=== PATIENT | male | born 1955 | race Caucasian/White ===

== ENCOUNTER 2017-06-05 17:23 | Inpatient (IN) | payer OTHER ==
[2017-06-05] VITALS (7 sets, daily range): BP systolic 138–159; BP diastolic 62–95; PULSE 105–160; RESP 18–38; TEMP 98.1–98.2; O2SAT 91–95
[~2017-06-05] VITALS: Ht 170.2 cm; Wt 86.5 kg
[2017-06-05] MEDS ORDERED: SODIUM CHLOR 0.9% 1000 ML INJ 1,000 ML IV ONE ×2 (20:11→21:30)
[2017-06-05] MEDS ORDERED: ONDANSETRON HCL 4 MG/2 ML VIAL IV PUSH ONE (20:15)
[2017-06-05] MEDS ORDERED: MORPHINE SULFATE 4 MG/ML INJ IV PUSH ONE (20:15)
--- NOTE | 2017-06-05 20:27 | PD ---
HPI Chief Complaint: GI Complaint Time Seen by Provider: 19:49 Travel History International Travel<30 days: No Contact w/Intl Traveler<30days: No Traveled to known affect area: No History of Present Illness HPI Patient is a 62-year-old male presenting to emergency department for evaluation of abdominal pain. Patient states his symptoms started 2 weeks ago, he reports feeling bloated and gassy. He reports hot flashes but denies any documented temperatures. His last bowel movement was 3 days ago, this is a normal pattern for him per his report. He denies any dysuria, nausea, vomiting. Patient reports that he cannot lay flat. He also has ulcerations to his left lower leg which he states has been ongoing for 2 to 3 weeks as well. Patient's past medical history significant for hypertension, hyperlipidemia, AMI. He denies any coronary stents or CABG. Patient is a daily tobacco user, he denies any alcohol or illicit drug use. Symptom onset was gradual, symptoms are severe in nature. H&P is limited due to patient's clinical condition. PFSH Past Medical History High Cholesterol: Yes Diminished Hearing: Yes Hypertension: Yes Myocardial Infarction: Yes Tetanus Vaccination: Unknown Influenza Vaccination: No Past Surgical History Surgical History: No Previous Surgery Social History Alcohol Use: No Tobacco Use: Yes (02/22 ppd) Substance Use: No Allergies-Medications (Allergen,Severity, Reaction): Coded Allergies: No Known Allergies (Unverified , 06/05/17) Review of Systems ROS Limitations: Clinical Condition Except as stated in HPI: all other systems reviewed are Neg General / Constitutional: Positive: Fever Eyes: No: Blurred Vision HENT: No: Headaches Cardiovascular: Positive: Dyspnea on exertion, Edema, No: Chest Pain or Discomfort Respiratory: Positive: Shortness of Breath Gastrointestinal: Positive: Abdominal Pain, Loss of Appetite, No: Nausea, Vomiting Genitourinary: No: Dysuria Musculoskeletal: No: Myalgias Neurologic: Positive: Weakness, No: Dizziness, Syncope, Focal Abnormalities Physical Exam Narrative GENERAL: Overweight, well-developed, alert, acutely ill-appearing elderly gentleman. Appears uncomfortable, no acute distress. SKIN: Warm and dry. Ulcerations noted to lateral aspect of left lower leg, clear drainage noted. Skin is mottled on lower abdomen and flanks. HEAD: Atraumatic. Normocephalic. EYES: Pupils equal and round. No scleral icterus. No injection or drainage. ENT: No nasal bleeding or discharge. Mucous membranes pink and moist. NECK: Trachea midline. No JVD. CARDIOVASCULAR: Tachycardic, decreased capillary refill bilateral lower extremities. RESPIRATORY: No accessory muscle use. Clear to auscultation. Breath sounds equal bilaterally. GASTROINTESTINAL: Abdomen distended, firm, hypoactive bowel sounds. Tender to palpation diffusely. Positive guarding. Hepatic and splenic margins not palpable. MUSCULOSKELETAL: Extremities without clubbing, cyanosis. No obvious deformities. 2+ pitting edema to bilateral lower extremities. NEUROLOGICAL: Awake and alert. No obvious cranial nerve deficits. Motor grossly within normal limits. Five out of 5 muscle strength in the arms and legs. Normal speech. PSYCHIATRIC: Appropriate mood and affect; insight and judgment normal. Data Data Last Documented VS Vital Signs Date Time Temp Pulse Resp B/P (MAP) Pulse Ox O2 Delivery O2 Flow Rate FiO2 06/05/17 22:45 160 36 138/69 (92) 95 Non-Rebreather 15.00 06/05/17 17:30 98.2 Orders Orders Sepsis Workup Initiated (06/05/17 ) Electrocardiogram (06/05/17 20:11) Complete Blood Count With Diff (06/05/17 20:11) Comprehensive Metabolic Panel (06/05/17 20:11) Prothrombin Time / Inr (Pt) (06/05/17 20:11) Act Partial Throm Time (Ptt) (06/05/17 20:11) Lactic Acid Sepsis Protocol (06/05/17 20:11) Magnesium (Mg) (06/05/17 20:11) Lipase (06/05/17 20:11) Ckmb (Isoenzyme) Profile (06/05/17 20:11) Troponin I (06/05/17 20:11) Urinalysis - C+S If Indicated (06/05/17 20:11) Chest, Single Ap (06/05/17 20:11) Blood Glucose (06/05/17 20:11) Ecg Monitoring (06/05/17 20:11) Iv Access Insert/Monitor (06/05/17 20:11) Oximetry (06/05/17 20:11) Oxygen Administration (06/05/17 20:11) Ondansetron Inj (Zofran Inj) (06/05/17 20:15) Ct Abd/Pel W Iv Contrast(Rout) (06/05/17 20:11) Sodium Chlor 0.9% 1000 Ml Inj (Ns 1000 M (06/05/17 20:11) B-Type Natriuretic Peptide (06/05/17 20:11) Morphine Inj (Morphine Inj) (06/05/17 20:15) Ed Poc Ultrasound (06/05/17 ) Ct Thorax/ Chest W Iv Contrast (06/05/17 21:03) Type And Screen (06/05/17 21:09) Sodium Chlor 0.9% 250 Ml Inj (Ns 250 Ml (06/05/17 21:15) Sodium Chlor 0.9% 1000 Ml Inj (Ns 1000 M (06/05/17 21:30) Sodium Polysty Sulfate Liq (Kayexalate L (06/05/17 21:30) Blood Culture (06/05/17 21:33) Iodixanol 320 Inj (Rad Ct) (Visipaque 32 (06/05/17 22:18) Hydromorphone Pf Inj (Dilaudid Pf Inj) (06/05/17 23:15) Piperacil-Tazo 4.5 Gm Premix (Zosyn 4.5 (06/05/17 23:07) Labs Laboratory Tests Test 06/05/17 20:30 White Blood Count 20.1 TH/MM3 Red Blood Count 5.22 MIL/MM3 Hemoglobin 16.9 GM/DL Hematocrit 49.2 % Mean Corpuscular Volume 94.2 FL Mean Corpuscular Hemoglobin 32.3 PG Mean Corpuscular Hemoglobin Concent 34.3 % Red Cell Distribution Width 14.6 % Platelet Count 381 TH/MM3 Mean Platelet Volume 9.8 FL Neutrophils (%) (Auto) 93.9 % Lymphocytes (%) (Auto) 2.5 % Monocytes (%) (Auto) 3.1 % Eosinophils (%) (Auto) 0.0 % Basophils (%) (Auto) 0.5 % Neutrophils # (Auto) 18.9 TH/MM3 Lymphocytes # (Auto) 0.5 TH/MM3 Monocytes # (Auto) 0.6 TH/MM3 Eosinophils # (Auto) 0.0 TH/MM3 Basophils # (Auto) 0.1 TH/MM3 CBC Comment AUTO DIFF Differential Total Cells Counted 100 Neutrophils % (Manual) 79 % Band Neutrophils % 12 % Lymphocytes % 3 % Monocytes % 3 % Neutrophils # (Manual) 18.9 TH/MM3 Metamyelocytes 2 % Myelocytes 1 % Differential Comment FINAL DIFF MANUAL Platelet Estimate NORMAL Platelet Morphology Comment ENLARGED Prothrombin Time 12.8 SEC Prothromb Time International Ratio 1.3 RATIO Activated Partial Thromboplast Time 41.6 SEC Urine Color LIGHT-BROWN Urine Turbidity CLOUDY Urine pH 5.0 Urine Specific [place] 1.023 Urine Protein 30 mg/dL Urine Glucose (UA) NEG mg/dL Urine Ketones NEG mg/dL Urine Occult Blood TRACE Urine Nitrite NEG Urine Bilirubin NEG Urine Urobilinogen 4.0 MG/DL Urine Leukocyte Esterase TRACE Urine RBC 12 /hpf Urine WBC 5 /hpf Urine Amorphous Sediment RARE Urine Bacteria OCC /hpf Urine Mucus FEW /lpf Microscopic Urinalysis Comment CULT NOT INDICATED Blood Urea Nitrogen 79 MG/DL Creatinine 1.92 MG/DL Random Glucose 114 MG/DL Total Protein 8.8 GM/DL Albumin 1.5 GM/DL Calcium Level 9.1 MG/DL Magnesium Level 3.8 MG/DL Alkaline Phosphatase 340 U/L Aspartate Amino Transf (AST/SGOT) 39 U/L Alanine Aminotransferase (ALT/SGPT) 53 U/L Total Bilirubin 1.7 MG/DL Sodium Level 126 MEQ/L Potassium Level 7.3 MEQ/L Chloride Level 99 MEQ/L Carbon Dioxide Level 16.9 MEQ/L Anion Gap 10 MEQ/L Estimat Glomerular Filtration Rate 36 ML/MIN Lactic Acid Level 1.5 mmol/L Total Creatine Kinase 74 U/L Troponin I LESS THAN 0.02 NG/ML B-Type Natriuretic Peptide 82 PG/ML Lipase 144 U/L MDM Medical Decision Making Medical Screen Exam Complete: Yes Emergency Medical Condition: Yes Interpretation(s) Vital Signs Date Time Temp Pulse Resp B/P (MAP) Pulse Ox O2 Delivery O2 Flow Rate FiO2 06/05/17 20:09 110 30 158/79 (105) 91 Nasal Cannula 2.00 06/05/17 20:09 30 06/05/17 17:30 98.2 105 18 159/95 (116) 95 Differential Diagnosis CHF versus UTI versus obstruction versus GI bleed versus perforated bowel versus AAA versus other Narrative Course Patient is a 62-year-old male that presented to emergency department for evaluation of abdominal pain. Pain is worse when he lays down flat. Patient is a poor historian secondary to pain. On arrival patient is tachycardic, tachypneic and his oxygen saturation was 93% on room air. Labs and imaging ordered and pending. Sepsis workup initiated, additionally we will check cardiac enzymes, BNP. IV fluids and pain medication ordered. CBC with a white count of 20.1 with left shift Chemistry with a sodium of 126, potassium 7.3, BUN and creatinine 79/1.92, magnesium 3.8. 60 g of Kayexalate p.o. 1 dose ordered Lactic acid is 1.5 BNP is 82 Cardiac enzymes are negative 1 set Urinalysis with trace occult blood, 12 red blood cells, not consistent with UTI. Chest x-ray shows cardiomegaly. Suspected minimal atelectasis at the bases. An addendum notes curvilinear lucency seen in the right lower chest/upper abdomen region. Free intraperitoneal air cannot be excluded. Patient was also seen and evaluated by my attending physician. CT the abdomen and pelvis shows free intraperitoneal air and fluid. The source is not identified. Basilar consolidation or atelectasis at the lung bases. Small right renal calcifications which may represent nonobstructing renal stones. Patient was brought back from CT, he had been on oxygen, his O2 sat was in the 80s. He was placed on a nonrebreather, sats are now at 95%. He was tachycardic , patient complained that his pain was not controlled. Dilaudid 0.5 mg 1 dose IV was ordered. Discussed findings of the CT scan of the abdomen and pelvis with Dr. Valle who stated he would come evaluate the patient. Dr. Magdaleno accepted admission to the intensive care unit. Sepsis Criteria SIRS Criteria (2 or more): Heart rate over 90, WBC > 16333, < 4000 or > 10% bands Diagnosis Primary Impression: Perforated bowel Additional Impressions: Hyperkalemia Acute renal failure Qualified Codes: N17.9 - Acute kidney failure, unspecified Hyponatremia Admitting Information Admitting Physician Requests: Admit Condition: Stable Kendra Gant KNOTTER Jun 05, 2017 20:27
--- NOTE | 2017-06-05 20:53 | RADRPT ---
EXAM DATE/TIME: 06/05/2017 20:30 This report includes an Addendum and supersedes previous reports for this exam. [facility] COMPARISON: No previous studies available for comparison. INDICATIONS : Short of Breath MEDICAL HISTORY : None. SURGICAL HISTORY : None. ENCOUNTER: Initial ACUITY: 1 day PAIN SCORE: 0/10 LOCATION: chest FINDINGS: The heart size is enlarged. There is minimal increased density the bases. End of the lungs are clear. No effusion is seen. CONCLUSION: 1. Cardiomegaly. 2. Suspected minimal atelectasis at the bases. Paul Bernal MD on June 05, 2017 at 20:49 Board Certified Radiologist. This report was verified electronically. ADDENDUM: I have been asked to review this case. There is some curvilinear lucency seen in the right lower ches t/upper abdomen region. Free intraperitoneal air cannot be excluded. The patient is scheduled for CT examination. Paul Bernal MD on June 05, 2017 at 21:20 Board Certified Radiologist. This report was verified electronically.
[2017-06-05 20:57] LABS: AUTOMATED NEUTROPHIL # 18.9 TH/MM3 (1.8-7.7); BASOPHIL # 0.1 TH/MM3 (0-0.2); BASOPHIL % 0.5 % (0.0-2.0); HEMATOCRIT 49.2 % (39.0-51.0); HEMOGLOBIN 16.9 GM/DL (13.0-17.0); LYMPH % 2.5 % (9.0-44.0); LYMPHOCYTE # 0.5 TH/MM3 (1.0-4.8); MEAN CELL VOLUME 94.2 FL (80.0-100.0); MEAN CORPUSCULAR HEMOGLOBIN 32.3 PG (27.0-34.0); MEAN CORPUSCULAR HGB CONC 34.3 % (32.0-36.0); MEAN PLATELET VOLUME 9.8 FL (7.0-11.0); MONO % 3.1 % (0.0-8.0); MONOCYTE # 0.6 TH/MM3 (0-0.9); NEUT % 93.9 % (16.0-70.0); PLATELET COUNT 381 TH/MM3 (150-450); RED BLOOD COUNT 5.22 MIL/MM3 (4.50-5.90); RED CELL DISTRIBUTION WIDTH 14.6 % (11.6-17.2); WHITE BLOOD COUNT 20.1 TH/MM3 (4.0-11.0)
[2017-06-05 21:07] LABS: INTERNATIONAL NORMALIZED RATIO 1.3 RATIO; PROTHROMBIN TIME - PATIENT 12.8 SEC (9.8-11.6)
[2017-06-05 21:08] LABS: ALT (GPT) 53 U/L (12-78); AST (GOT) 39 U/L (15-37); BICARBONATE 16.9 MEQ/L (21.0-32.0); BLOOD UREA NITROGEN 79 MG/DL (7-18); CALCIUM 9.1 MG/DL (8.5-10.1); CHLORIDE 99 MEQ/L (98-107); CREATININE 1.92 MG/DL (0.60-1.30); GLOMERULAR FILTRATION RATE 36 ML/MIN (>89); GLUCOSE,RANDOM 114 MG/DL (74-106); MAGNESIUM 3.8 MG/DL (1.5-2.5); SODIUM (NA) 126 MEQ/L (136-145)
[2017-06-05 21:12] LABS: AMORPHOUS SEDIMENT, URINE RARE; BACTERIA, URINE OCC /hpf; BLOOD, URINE TRACE (NEG); GLUCOSE,URINE NEG (NEG); KETONE, URINE NEG (NEG); MUCUS URINE FEW /lpf (OCC); NITRITE,URINE NEG (NEG); URINE COLOR LIGHT-BROWN (YELLW/STRAW); URINE LEUKOCYTE ESTERASE TRACE (NEG)
[2017-06-05] MEDS ORDERED: SODIUM CHLOR 0.9% 250 ML INJ 250 ML IV ONE (21:15)
[2017-06-05 21:16] LABS: BILIRUBIN, URINE NEG (NEG)
[2017-06-05 21:18] LABS: ALBUMIN 1.5 GM/DL (3.4-5.0); ALKALINE PHOSPHATASE 340 U/L (45-117); TOTAL BILIRUBIN ADULT 1.7 MG/DL (0.2-1.0); TOTAL PROTEIN 8.8 GM/DL (6.4-8.2); TROPONIN I LESS THAN 0.02 NG/ML (0.02-0.05)
[2017-06-05] MEDS ORDERED: SODIUM POLYSTYRENE SULFONATE SUSP 15 GM/60 ML CUP PO ONE (21:30)
--- NOTE | 2017-06-05 22:01 | PD ---
Physical Exam Narrative General: The patient is a well-developed well-nourished male, uncomfortable appearing on arrival, sitting up on the side of the bed is reporting that he cannot lie back because of pain. Head and Neck exam: Head is normocephalic atraumatic. Eyes: EOMI, pupils are equal round and reactive to light. Nose: Midline septum with pink mucous membranes Mouth: Dentition unremarkable. Moist mucus membranes. Posterior oropharynx is not erythematous. No tonsillar hypertrophy. Uvula midline. Airway patent. Neck: No palpable lymphadenopathy. No nuchal rigidity. No thyromegaly. Cardiovascular: Sinus tachycardia in the 1 teens without murmurs, gallops, or rubs. No pulse deficit to the extremities on simultaneous auscultation and palpation of his radial artery. Lungs: Decreased breath sounds in bilateral lung bases. Crackles were audible in the lung bases on the right. No rhonchi audible. No accessory muscle use noted. No paroxysmal abdominal breathing. Abdomen: The patient's abdomen is distended and exquisitely tender to palpation in all quadrants worse in bilateral upper quadrants of the abdomen midepigastric area. Decreased bowel sounds are audible. The patient has voluntary guarding. No rigidity. Extremities: No clubbing or cyanosis. The patient has prolonged cap refill in bilateral lower extremities at 4 seconds. The patient has mottled appearing skin of his abdomen, flank, lower extremities. The patient has areas of skin ulceration along the left lower extremity with scabbing overlying these areas of ulceration. Back: No spinous process tenderness to palpation. No costovertebral angle tenderness to palpation. Neurologic Exam: Grossly nonfocal. Skin Exam: No rash noted. Intact skin that is warm and dry. Data Data Last Documented VS Vital Signs Date Time Temp Pulse Resp B/P (MAP) Pulse Ox O2 Delivery O2 Flow Rate FiO2 06/05/17 22:45 160 36 138/69 (92) 95 Non-Rebreather 15.00 06/05/17 17:30 98.2 Orders Orders Sepsis Workup Initiated (06/05/17 ) Electrocardiogram (06/05/17 20:11) Complete Blood Count With Diff (06/05/17 20:11) Comprehensive Metabolic Panel (06/05/17 20:11) Prothrombin Time / Inr (Pt) (06/05/17 20:11) Act Partial Throm Time (Ptt) (06/05/17 20:11) Lactic Acid Sepsis Protocol (06/05/17 20:11) Magnesium (Mg) (06/05/17 20:11) Lipase (06/05/17 20:11) Ckmb (Isoenzyme) Profile (06/05/17 20:11) Troponin I (06/05/17 20:11) Urinalysis - C+S If Indicated (06/05/17 20:11) Chest, Single Ap (06/05/17 20:11) Blood Glucose (06/05/17 20:11) Ecg Monitoring (06/05/17 20:11) Iv Access Insert/Monitor (06/05/17 20:11) Oximetry (06/05/17 20:11) Oxygen Administration (06/05/17 20:11) Ondansetron Inj (Zofran Inj) (06/05/17 20:15) Ct Abd/Pel W Iv Contrast(Rout) (06/05/17 20:11) Sodium Chlor 0.9% 1000 Ml Inj (Ns 1000 M (06/05/17 20:11) B-Type Natriuretic Peptide (06/05/17 20:11) Morphine Inj (Morphine Inj) (06/05/17 20:15) Ed Poc Ultrasound (06/05/17 ) Ct Thorax/ Chest W Iv Contrast (06/05/17 21:03) Type And Screen (06/05/17 21:09) Sodium Chlor 0.9% 250 Ml Inj (Ns 250 Ml (06/05/17 21:15) Sodium Chlor 0.9% 1000 Ml Inj (Ns 1000 M (06/05/17 21:30) Sodium Polysty Sulfate Liq (Kayexalate L (06/05/17 21:30) Blood Culture (06/05/17 21:33) Iodixanol 320 Inj (Rad Ct) (Visipaque 32 (06/05/17 22:18) Hydromorphone Pf Inj (Dilaudid Pf Inj) (06/05/17 23:15) Piperacil-Tazo 4.5 Gm Premix (Zosyn 4.5 (06/05/17 23:07) Calcium Gluconate Inj (Calcium Gluconate (06/05/17 23:30) Esmolol Drip Inj Premix (Brevibloc Drip (06/05/17 23:30) Admit Order (Ed Use Only) (06/05/17 23:23) Arterial Blood Gas (Abg) (06/05/17 ) Dextrose 50% In Janay (Vial) Inj (D50w (Vi (06/05/17 23:30) Insulin Human Regular Inj (Novolin R Inj (06/05/17 23:30) Potassium, Serum (K) (06/06/17 00:01) Sodium Bicarbonate 8.4% Inj (Sodium Bica (06/05/17 23:30) Labs Laboratory Tests Test 06/05/17 20:30 White Blood Count 20.1 TH/MM3 Red Blood Count 5.22 MIL/MM3 Hemoglobin 16.9 GM/DL Hematocrit 49.2 % Mean Corpuscular Volume 94.2 FL Mean Corpuscular Hemoglobin 32.3 PG Mean Corpuscular Hemoglobin Concent 34.3 % Red Cell Distribution Width 14.6 % Platelet Count 381 TH/MM3 Mean Platelet Volume 9.8 FL Neutrophils (%) (Auto) 93.9 % Lymphocytes (%) (Auto) 2.5 % Monocytes (%) (Auto) 3.1 % Eosinophils (%) (Auto) 0.0 % Basophils (%) (Auto) 0.5 % Neutrophils # (Auto) 18.9 TH/MM3 Lymphocytes # (Auto) 0.5 TH/MM3 Monocytes # (Auto) 0.6 TH/MM3 Eosinophils # (Auto) 0.0 TH/MM3 Basophils # (Auto) 0.1 TH/MM3 CBC Comment AUTO DIFF Differential Total Cells Counted 100 Neutrophils % (Manual) 79 % Band Neutrophils % 12 % Lymphocytes % 3 % Monocytes % 3 % Neutrophils # (Manual) 18.9 TH/MM3 Metamyelocytes 2 % Myelocytes 1 % Differential Comment FINAL DIFF MANUAL Platelet Estimate NORMAL Platelet Morphology Comment ENLARGED Prothrombin Time 12.8 SEC Prothromb Time International Ratio 1.3 RATIO Activated Partial Thromboplast Time 41.6 SEC Urine Color LIGHT-BROWN Urine Turbidity CLOUDY Urine pH 5.0 Urine Specific [place] 1.023 Urine Protein 30 mg/dL Urine Glucose (UA) NEG mg/dL Urine Ketones NEG mg/dL Urine Occult Blood TRACE Urine Nitrite NEG Urine Bilirubin NEG Urine Urobilinogen 4.0 MG/DL Urine Leukocyte Esterase TRACE Urine RBC 12 /hpf Urine WBC 5 /hpf Urine Amorphous Sediment RARE Urine Bacteria OCC /hpf Urine Mucus FEW /lpf Microscopic Urinalysis Comment CULT NOT INDICATED Blood Urea Nitrogen 79 MG/DL Creatinine 1.92 MG/DL Random Glucose 114 MG/DL Total Protein 8.8 GM/DL Albumin 1.5 GM/DL Calcium Level 9.1 MG/DL Magnesium Level 3.8 MG/DL Alkaline Phosphatase 340 U/L Aspartate Amino Transf (AST/SGOT) 39 U/L Alanine Aminotransferase (ALT/SGPT) 53 U/L Total Bilirubin 1.7 MG/DL Sodium Level 126 MEQ/L Potassium Level 7.3 MEQ/L Chloride Level 99 MEQ/L Carbon Dioxide Level 16.9 MEQ/L Anion Gap 10 MEQ/L Estimat Glomerular Filtration Rate 36 ML/MIN Lactic Acid Level 1.5 mmol/L Total Creatine Kinase 74 U/L Troponin I LESS THAN 0.02 NG/ML B-Type Natriuretic Peptide 82 PG/ML Lipase 144 U/L [facility] Medical Record Reviewed: Yes Supervised Visit with MAHSA: Yes Interpretation(s) Last Impressions Chest CT 06/05/172102 Signed Impressions: Service Date/Time: Monday, June 05, 2017 21:58 - CONCLUSION: 1. Bilateral atelectasis. 2. 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 3. No aneurysm or dissection of the thoracic aorta. Paul Palencia MD Chest X-Ray 06/05/172010 Signed Impressions: Service Date/Time: Monday, June 05, 2017 20:30 - CONCLUSION: 1. Cardiomegaly. 2. Suspected minimal atelectasis at the bases. Paul Bernal MD ADDENDUM : I have been asked to review this case. There is some curvilinear lucency seen in the right lower chest/upper abdomen region. Free intraperitoneal air cannot be excluded. The patient is scheduled for CT examination. Paul Bernal MD Abdomen/Pelvis CT 06/05/172010 Signed Impressions: Service Date/Time: Monday, June 05, 2017 21:58 - CONCLUSION: 1. Free intraperitoneal air and fluid. The source is not fluid identified. 2. Bibasilar is a consolidation or atelectasis at the lung bases. 3. Small right renal calcifications which may represent nonobstructing renal stones. Paul Bernal MD Narrative Course I, Dr. Corona, have reviewed the advance practice practitioner's documentation and am in agreement, met with the patient face to face, made the diagnosis, and the medical decision making was done by me. The patient was initially evaluated by Kendra, the nurse practitioner. Please see their complete history and physical. *My assessment and Findings: The patient presents with reported history of right -sided chest pain, abdominal pain, and shortness of breath. He reports that the abdominal pain is been present for the last 2 weeks. He reports that it became much worse recently. He reports that he has been taking extra pain medication to control his pain. He reports that he has chronic back pain. The patient is noted to be drowsy on examination on initial arrival and unfortunately his history was limited based on that. During the course of the patient's emergency department visit, the patient's history, examination, and differential diagnosis were reviewed with the patient. The patient was placed on a booth cleaner with oximetry and frequent blood pressure monitoring. The patient had IV access obtained and blood work sent for analysis. The patient had an EKG done on arrival that shows a sinus tachycardia, QRS duration 109 ms, QTC [address]-T wave abnormalities were noted. A chest x-ray was done and appeared suspicious for free air under the diaphragm on the right side above the liver. I did call the radiologist on-call regarding this finding and spoke to Dr. Bernal. Given the patient's mottled appearance, and severe abdominal pain associated with chest pain I did discuss with him what further imaging he might recommend as aortic dissection was also in the differential in addition to perforated bowel. He recommended proceeding with CT scan of the chest, abdomen and pelvis with IV contrast. The patient was initially provided normal saline 1 L IV fluid bolus, morphine for pain, Zofran for nausea. The patient's laboratory studies were reviewed and remarkable for white count of 20.1, hemoglobin 16.9, platelets 381 with neutrophils 79, bands 12, CMP is remarkable for sodium of 126, potassium 7.3, CO2 16.9, BUN 79, creatinine 1.92, glucose 114, magnesium 3.8, total bilirubin 1.7, AST 39, alk phos 340, initial cardiac enzymes within normal limits, BNP 82, lipase 44, lactic acid 1.5, PT 12.8, PTT 41.6, urinalysis shows 4 urobilinogen, leukocyte esterase trace, RBCs 12 Radiology studies were reviewed and remarkable for chest x-ray that shows cardiomegaly, minimal atelectasis at the bases, curvilinear lucency under the right diaphragm suspicious for free air. CT scan of the chest reveals bilateral atelectasis, emphysema, coronary artery calcifications and evidence of old apical infarct, no aneurysm or dissection. CT scan of the abdomen and pelvis shows free intraperitoneal air and fluid source is not able to be identified for the free fluid. The patient came back from CT, the patient was not placed back on oxygen in his room and desaturated down to a pulse oximetry oxygenation of mid 80s. The patient was placed on supplemental oxygen again. The patient had tachycardia and increased pain. The patient was given hydromorphone 0.5 mg IV, EKG was ordered. EKG revealed what appeared to be evidence of A. fib with RVR with heart rate in the 160s. The patient was started on esmolol drip. The patient was given Zosyn IV. The patient's results were discussed with the patient, including the plan of care. I explained that further testing and/ or monitoring is indicated based on the patient's history, examination, and/ or laboratory findings. Therefore, I recommended admission for additional evaluation. The patient expressed understanding and was agreeable with this plan. The patient was admitted to the hospital in critical condition and sent to a bed under the care of the therapeutic sales specialist and general surgeon. Sepsis Criteria SIRS Criteria (2 or more): Heart rate over 90, WBC > 63664, < 4000 or > 10% bands Sepsis Criteria (SIRS+source): Infect source susp/known Diagnosis Primary Impression: Perforated bowel Additional Impression: Atrial fibrillation with RVR Admitting Information Admitting Physician Requests: Admit Scripts Unable to Obtain Active Prescriptions or Reported Meds Elyse Corona MD Jun 05, 2017 22:01
[2017-06-05 22:05] LABS: BANDS 12 % (0-6); LYMPHOCYTES 3 % (9-44); METAMYELOCYTES 2 % (0-1); MONOCYTES 3 % (0-8); MYELOCYTES 1 % (0-0); NEUTROPHIL # MANUAL DIFF 18.9 TH/MM3 (1.8-7.7); POLYS (SEG NEUTROPHILS) 79 % (16-70)
[2017-06-05] MEDS ORDERED: IODIXANOL 320 MG/ML 10 ML VIAL (for Rad CT) IVCONTRAST ONE (22:18)
--- NOTE | 2017-06-05 22:49 | RADRPT ---
EXAM DATE/TIME: 06/05/2017 21:58 [facility] COMPARISON: No previous studies available for comparison. INDICATIONS : Severe abdominal pain; free air vs. dissection. IV CONTRAST: 47 cc Visipaque (iodixanol) IV ORAL CONTRAST: No oral contrast ingested. RADIATION DOSE: 6.36 CTDIvol (mGy) MEDICAL HISTORY : Hypertension. Myocardial infarction. SURGICAL HISTORY : None. ENCOUNTER: Initial ACUITY: 1 day PAIN SCALE: 10/10 LOCATION: abdomen TECHNIQUE: Volumetric scanning of the abdomen and pelvis was performed. Using automated exposure control and ad justment of the mA and/or kV according to patient size, radiation dose was kept as low as reasonably achievable to obtain optimal diagnostic quality images. DICOM format image data is available electro nically for review and comparison. FINDINGS: Free intraperitoneal air is present. LOWER LUNGS: There is increased density seen at the lung bases bilaterally. LIVER: Homogeneous density without lesion. There is no dilation of the biliary tree. No calcified gallston es. SPLEEN: Normal size without lesion. PANCREAS: Within normal limits. KIDNEYS: There are 2 small 2 mm calcifications seen in the central aspect of the right kidney likely related t o nonobstructing stones. There is a 3.1 cm cyst at the lateral mid left kidney. Hydronephrosis is not seen. ADRENAL GLANDS: Within normal limits. VASCULAR: There is no aortic aneurysm. Aortic calcifications are seen. BOWEL/MESENTERY: Free intraperitoneal air seen. There is peritoneal fluid seen in the pelvis. The source of the free a ir is not clearly identified. Dilated bowel is not seen. ABDOMINAL WALL: Within normal limits. RETROPERITONEUM: There is no lymphadenopathy. BLADDER: No wall thickening or mass. REPRODUCTIVE: Within normal limits. INGUINAL: There is no lymphadenopathy or hernia. MUSCULOSKELETAL: Within normal limits for patient age. CONCLUSION: 1. Free intraperitoneal air and fluid. The source is not fluid identified. 2. Bibasilar is a consolidation or atelectasis at the lung bases. 3. Small right renal calcifications which may represent nonobstructing renal stones. Paul Bernal MD on June 05, 2017 at 22:42 Board Certified Radiologist. This report was verified electronically.
[2017-06-05] MEDS ORDERED: PIPERACIL-TAZO 4.5 GM PREMIX 100 ML IV STA (23:07)
[2017-06-05] MEDS ORDERED: HYDROmorphone HCL PF 0.5 MG/0.5 ML SYRINGE IV PUSH ONE ×2 (23:15→23:45)
--- NOTE | 2017-06-05 23:23 | RADRPT ---
EXAM DATE/TIME: 06/05/2017 21:58 [facility] COMPARISON: CT ABDOMEN & PELVIS W CONTRAST, June 05, 2017, 21:58. INDICATIONS : Severe abdominal pain; possible dissection. IV CONTRAST: 47 cc Visipaque (iodixanol) IV ; Cumulative dose for multiple exams. RADIATION DOSE: 6.36 CTDIvol (mGy) ; Combined studies - Thorax/Abdomen/Pelvis MEDICAL HISTORY : Hypertension. Myocardial infarction. SURGICAL HISTORY : None. ENCOUNTER: Initial ACUITY: 1 day PAIN SCALE: 10/10 LOCATION: chest TECHNIQUE: Volumetric scanning of the chest was performed. Using automated exposure control and adjustment of t he mA and/or kV according to patient size, radiation dose was kept as low as reasonably achievable to obtain optimal diagnostic quality images. DICOM format image data is available electronically for review and comparison. Follow-up recommendations for detected pulmonary nodules are based at a minimum on nodule size and pa tient risk factors according to Fleischner Society Guidelines. FINDINGS: LUNGS: Emphysema is present. There is bilateral atelectasis, mostly deep tendon and at the bases. No effusio n or pneumothorax. PLEURA: There is no pleural thickening or pleural effusion. MEDIASTINUM: Mild left ventricular enlargement. There is calcification at the left ventricular apex typical of an old infarct. Right and left side coronary artery calcification noted. There is no aneurysm or dissect ion of the thoracic aorta. No mediastinal, hilar or axillary lymphadenopathy. AXILLAE: Within normal limits. No lymphadenopathy. SKELETAL: Within normal limits for patient age. CONCLUSION: 1. Bilateral atelectasis. 2. 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 3. No aneurysm or dissection of the thoracic aorta. Paul Palencia MD on June 05, 2017 at 23:19 Board Certified Radiologist. This report was verified electronically.
[2017-06-05] MEDS ORDERED: CALCIUM GLUCONATE INJ 2 GM in SODIUM CHLORIDE 0.9% INJ 100 ML IV ONE (23:30)
[2017-06-05] MEDS ORDERED: INSULIN HUMAN REGULAR 1,000 UNITS/10 ML VIAL IV PUSH ONE (23:30)
[2017-06-05] MEDS ORDERED: DEXTROSE 50% IN WATER 50 ML VIAL(D50) IV PUSH ONE (23:30)
[2017-06-05] MEDS ORDERED: SODIUM BICARBONATE 8.4% SOLN 50 MEQ/50 ML VIAL IV PUSH ONE (23:30)
[2017-06-05] MEDS ORDERED: ESMOLOL DRIP INJ PREMIX 250 ML IV PRN (23:30)
[2017-06-05] MEDS: FLUCONAZOLE 400 MG PREMIX BAG 200 ML IV SCH (23:49)
[2017-06-06] VITALS (13 sets, daily range): BP systolic 92–135; BP diastolic 43–70; PULSE 76–134; RESP 16–34; TEMP 98.3–99.1; O2SAT 95–100
[2017-06-06] MEDS ORDERED: BUPIVACAINE/EPINEPHRINE 0.25% 50 ML VIAL ONE (00:02)
--- NOTE | 2017-06-06 00:52 | HHI.PR ---
Immediate Post Op Note Procedure Date: Jun 06, 2017 Pre Op Diagnosis: acute abdomen, perforated viscus Post Op Diagnosis: same, large perforated gastric ulcer Surgeon: Vijay Valle MD Senior Graphic Designer(s): see or sheet Procedure: dx lap, lap modified marcos patch, washout Findings: perf viscus, large anterior gastric ulcer, contaminated abdomen Complications: none Specimen(s) removed: none Estimated blood loss: 20cc Anesthesia: General Drains: GLENN (right middle gastric, right lateral pelvic drain) Patient to: PACU Patient Condition: Critical Vijay Valle MD Jun 06, 2017 00:52
[2017-06-06] MEDS ORDERED: SODIUM BICARBONATE 8.4% INJ 50 MEQ/50 ML SYR ONE (01:38)
[2017-06-06 01:53] LABS: ALBUMIN 1.2 GM/DL (3.4-5.0); ALKALINE PHOSPHATASE 212 U/L (45-117); ALT (GPT) 32 U/L (12-78); AST (GOT) 20 U/L (15-37); BICARBONATE 17.9 MEQ/L (21.0-32.0); BLOOD UREA NITROGEN 69 MG/DL (7-18); CALCIUM 8.5 MG/DL (8.5-10.1); CHLORIDE 108 MEQ/L (98-107); CREATININE 1.29 MG/DL (0.60-1.30); GLOMERULAR FILTRATION RATE 56 ML/MIN (>89); GLUCOSE,RANDOM 71 MG/DL (74-106); SODIUM (NA) 135 MEQ/L (136-145); TOTAL BILIRUBIN ADULT 1.7 MG/DL (0.2-1.0)
[2017-06-06] MEDS ORDERED: ESMOLOL HCL 100 MG/10 ML VIAL ONE (02:29)
--- NOTE | 2017-06-06 03:00 | HHI.HP ---
[facility] Service Critical Care Medicine Primary Care Physician Unknown Admission Diagnosis PERFORATED BOWEL Diagnosis: (1) Perforated bowel Diagnosis: Principal (2) Acute renal failure Diagnosis: Principal (3) Hyperkalemia Diagnosis: Secondary (4) Atrial fibrillation with RVR Diagnosis: Secondary (5) Hyponatremia Diagnosis: Secondary Travel History International Travel<30 Days: No Contact w/Intl Traveler <30 Da: No Traveled to Known Affected Are: No History of Present Illness 62 year old male who presented to [facility] emergency department with 2 week history of abdominal pain. He had acute abdomen on presentation. He underwent CT abdomen and pelvis that demonstrated free air and free fluid. General surgery was consulted and he was taken emergently to the operating room. He also presented with acute kidney injury and potassium of 7.3 and I ordered medical management with calcium, bicarb, insulin, dextrose prior to going to OR. Dr. Valle states patient had a large perforated gastric ulcer for which he performed laparoscopic primary repair. Patient will be transitioned to [facility] and CCM is consulted for postoperative critical care management. Review of Systems ROS Limitations: Intubated Past Family Social History Allergies: Coded Allergies: No Known Allergies (Unverified , 06/05/17) Past Medical History Coronary artery disease Prior [place] COPD Sleep apnea Hypertension Hyperlipidemia Past Surgical History None Reported Medications Unable to obtain from patient due to clinical condition. Not previously recorded in EMR. Family History Unable to obtain from patient due to clinical condition. Social History Smokes one half packs per cigarettes per day No alcohol or illicit drug use Physical Exam Vital Signs Vital Signs Date Time Temp Pulse Resp B/P (MAP) Pulse Ox O2 Delivery O2 Flow Rate FiO2 06/06/17 01:14 06/06/17 01:14 36 06/06/17 00:00 134 34 134/70 (91) 95 Non-Rebreather 15.00 06/05/17 23:00 98.1 156 38 138/62 (87) 94 Non-Rebreather 15.00 06/05/17 22:45 160 36 138/69 (92) 95 Non-Rebreather 15.00 06/05/17 21:30 110 36 140/69 (92) 94 Nasal Cannula 4.00 06/05/17 21:04 147/69 (95) 152/79 (103) 06/05/17 20:33 93 Nasal Cannula 2.00 06/05/17 20:09 110 30 158/79 (105) 91 Nasal Cannula 2.00 06/05/17 20:09 30 06/05/17 17:30 98.2 105 18 159/95 (116) 95 Physical Exam GENERAL: Chronically ill-appearing male who is laying in PACU bed, orotracheally intubated. SKIN: Warm and dry. Extremity lesions as per below. HEAD: Atraumatic. Normocephalic. EYES: Pupils equal and round, 2 mm and reactive bilaterally. No scleral icterus. There is right conjunctival injection. ENT: No nasal bleeding or discharge. Mucous membranes pink and moist. NECK: Trachea midline. No JVD. CARDIOVASCULAR: Irregularly irregular, heart rate in the 110s to 120s.. No murmurs rubs or gallops appreciated. RESPIRATORY: Orotracheally intubated. Rales in right base. No wheeze or rhonchi. GASTROINTESTINAL: Abdomen protuberant and distended. Bowel sounds absent. GLENN drain 2. The right lateral drain is in the pelvis and the middle drain is near the ulcer per discussion with Dr. Valle MUSCULOSKELETAL: Extremities without clubbing, cyanosis. There is 1+ bipedal edema. There are blisters over the dorsum of his left lower extremity that appears to be filled with serous and slightly hemorrhagic fluid. There is eschar overlying the lateral aspect of the left lower leg and just above the left lateral malleolus. Some erythema and warmth overlying lateral malleolus. No fluctuance or drainage. The soles of bilateral feet have embolic lesions. First toe on the left is discolored. Dopplerable pulses are present DP and posterior tibial arteries bilaterally. NEUROLOGICAL: Eyes open, pupils reactive. Moves extremities but does not follow commands. Laboratory Laboratory Tests Test 06/05/17 20:30 06/05/17 23:35 06/06/17 01:19 White Blood Count 20.1 Red Blood Count 5.22 Hemoglobin 16.9 Hematocrit 49.2 Mean Corpuscular Volume 94.2 Mean Corpuscular Hemoglobin 32.3 Mean Corpuscular Hemoglobin Concent 34.3 Red Cell Distribution Width 14.6 Platelet Count 381 Mean Platelet Volume 9.8 Neutrophils (%) (Auto) 93.9 Lymphocytes (%) (Auto) 2.5 Monocytes (%) (Auto) 3.1 Eosinophils (%) (Auto) 0.0 Basophils (%) (Auto) 0.5 Neutrophils # (Auto) 18.9 Lymphocytes # (Auto) 0.5 Monocytes # (Auto) 0.6 Eosinophils # (Auto) 0.0 Basophils # (Auto) 0.1 CBC Comment AUTO DIFF Differential Total Cells Counted 100 Neutrophils % (Manual) 79 Band Neutrophils % 12 Lymphocytes % 3 Monocytes % 3 Neutrophils # (Manual) 18.9 Metamyelocytes 2 Myelocytes 1 Differential Comment FINAL DIFF MANUAL Platelet Estimate NORMAL Platelet Morphology Comment ENLARGED Prothrombin Time 12.8 Prothromb Time International Ratio 1.3 Activated Partial Thromboplast Time 41.6 Urine Color LIGHT-BROWN Urine Turbidity CLOUDY Urine pH 5.0 Urine Specific [place] 1.023 Urine Protein 30 Urine Glucose (UA) NEG Urine Ketones NEG Urine Occult Blood TRACE Urine Nitrite NEG Urine Bilirubin NEG Urine Urobilinogen 4.0 Urine Leukocyte Esterase TRACE Urine RBC 12 Urine WBC 5 Urine Amorphous Sediment RARE Urine Bacteria OCC Urine Mucus FEW Microscopic Urinalysis Comment CULT NOT INDICATED Blood Urea Nitrogen 79 69 Creatinine 1.92 1.29 Random Glucose 114 71 Total Protein 8.8 6.0 Albumin 1.5 1.2 Calcium Level 9.1 8.5 Magnesium Level 3.8 Alkaline Phosphatase 340 212 Aspartate Amino Transf (AST/SGOT) 39 20 Alanine Aminotransferase (ALT/SGPT) 53 32 Total Bilirubin 1.7 1.7 Sodium Level 126 135 Potassium Level 7.3 6.3 Chloride Level 99 108 Carbon Dioxide Level 16.9 17.9 Anion Gap 10 9 Estimat Glomerular Filtration Rate 36 56 Lactic Acid Level 1.5 Total Creatine Kinase 74 Troponin I LESS THAN 0.02 B-Type Natriuretic Peptide 82 Lipase 144 Blood Gas Puncture Site RT RADIAL ART LINE Blood Gas Patient Temperature 98.6 98.6 Blood Gas HCO3 14 17 Blood Gas Base Excess -11.0 -9.4 Blood Gas Oxygen Saturation 95 96 Arterial Blood pH 7.32 7.22 Arterial Blood Partial Pressure CO2 28 44 Arterial Blood Partial Pressure O2 119 268 Arterial Blood Oxygen Content 21.4 19.4 Arterial Blood Carboxyhemoglobin 1.6 1.2 Arterial Blood Methemoglobin 0.9 1.7 Blood Gas Hemoglobin 15.9 14.0 Oxygen Delivery Device NRB VENTILATOR Blood Gas Liter Flow 15 Blood Gas Inspired Oxygen 100 97 Blood Gas Ventilator Setting OR Date/Time Source Procedure Growth Status 06/05/17 21:45 Blood Peripheral Aerobic Blood Culture Pending Received 06/05/17 21:45 Blood Peripheral Anaerobic Blood Culture Pending Received Result Diagram: 06/05/17202906/06/17 0119 Septic Shock Reassessment Septic shock perfusion: reassessment completed Caprini VTE Risk Assessment Caprini VTE Risk Assessment: Mod/High Risk (score >= 2) VTE Pharm Contraindication: High risk for bleeding Caprini Risk Assessment Model Point Value = 1 Point Value = 2 Point Value = 3 Point Value = 5 Age 41-60 Minor surgery BMI > 25 kg/m2 Swollen legs Varicose veins or History of unexplained or recurrent spontaneous Oral contraceptives or hormone replacement Sepsis (< 1 month) Serious lung disease, including pneumonia (< 1 month) Abnormal pulmonary function Acute myocardial infarction Congestive heart failure (< 1 month) History of inflammatory bowel disease Medical patient at bed rest Age 61-74 Arthroscopic surgery Major open surgery (> 45 min) Laparoscopic surgery (> 45 min) Malignancy Confined to bed (> 72 hours) Immobilizing plaster cast Central venous access Age >= 75 History of VTE Family history of VTE Factor V Leiden Prothrombin [id number] Lupus anticoagulant Anticardiolipin antibodies Elevated serum homocysteine Heparin-induced thrombocytopenia Other congenital or acquired thrombophilia Stroke (< 1 month) Elective arthroplasty Hip, pelvis, or leg fracture Acute spinal cord injury (< 1 month) Prophylaxis Regimen Total Risk Factor Score Risk Level Prophylaxis Regimen 0-1 Low Early ambulation 2 Moderate Order ONE of the following: *Sequential Compression Device (SCD) *Heparin 5000 units SQ BID 3-4 Higher Order ONE of the following medications: *Heparin 5000 units SQ TID *Enoxaparin/Lovenox 40 mg SQ daily (WT < 150 kg, CrCl > 30 mL/min) *Enoxaparin/Lovenox 30 mg SQ daily (WT < 150 kg, CrCl > 10-29 mL/min) *Enoxaparin/Lovenox 30 mg SQ BID (WT < 150 kg, CrCl > 30 mL/min) AND/OR *Sequential Compression Device (SCD) 5 or more Highest Order ONE of the following medications: *Heparin 5000 units SQ TID (Preferred with Epidurals) *Enoxaparin/Lovenox 40 mg SQ daily (WT < 150 kg, CrCl > 30 mL/min) *Enoxaparin/Lovenox 30 mg SQ daily (WT < 150 kg, CrCl > 10-29 mL/min) *Enoxaparin/Lovenox 30 mg SQ BID (WT < 150 kg, CrCl > 30 mL/min) AND *Sequential Compression Device (SCD) Assessment and Plan Problem List: (1) Hyperkalemia ICD Code: E87.5 - Hyperkalemia Status: Acute (2) Acute renal failure ICD Code: N17.9 - Acute kidney failure, unspecified Status: Acute (3) Atrial fibrillation with RVR ICD Code: I48.91 - Unspecified atrial fibrillation Status: Acute (4) Perforated bowel ICD Code: K63.1 - Perforation of intestine (nontraumatic) Status: Acute (5) Hyponatremia ICD Code: E87.1 - Hypo-osmolality and hyponatremia Status: Acute (6) COPD (chronic obstructive pulmonary disease) ICD Code: J44.9 - Chronic obstructive pulmonary disease, unspecified Status: Chronic (7) Emphysema lung ICD Code: J43.9 - Emphysema, unspecified Status: Chronic (8) SAEID (obstructive sleep apnea) ICD Code: G47.33 - Obstructive sleep apnea (adult) (pediatric) (9) HTN (hypertension) ICD Code: I10 - Essential (primary) hypertension (10) CAD (coronary artery disease) ICD Code: I25.10 - Atherosclerotic heart disease of [place] coronary artery without angina pectoris (11) HLD (hyperlipidemia) ICD Code: E78.5 - Hyperlipidemia, unspecified (12) Severe sepsis ICD Code: A41.9 - Sepsis, unspecified organism; R65.20 - Severe sepsis without septic shock (13) Cellulitis ICD Code: L03.90 - Cellulitis, unspecified Assessment and Plan NEURO: Propofol for sedation Target RASS -2 Fentanyl as needed for pain Daily sedation vacation RESP: Acute postoperative respiratory failure COPD Emphysema Obstructive sleep apnea Obtain chest x-ray post intubation. PRVC. Ventilator bundle. CT chest bibasilar atelectasis DuoNeb every 6 hours. Albuterol every 2 hours awake. Spontaneous breathing trial Chest x-ray satisfactory endotracheal tube position. Right basilar pneumonia CV: Coronary artery disease Prior myocardial infarction Hypertension Hyperlipidemia Atrial fibrillation with RVR Given metoprolol 5 mg IV and was then in sinus rhythm with rate in the 70s-80s. Will continue metoprolol 5 mg IV every 6 hours with hold orders based on heart rate and blood pressure. Received 2 L of crystalloid in the ED, 2300 of crystalloid in the OR. 0.9 NaCl at 125 mL/h. EKG sinus tach with ?inferior ST elevation, normalized on subsequent EKG. ?2ry to hyperkalemia. Troponin negative, will trend. Probable PAD Embolic phenomenon bilateral feet. No AAA. Will obtain Echo, ALEJANDRA. Has paroxysmal atrial fibrillation but not candidate for full dose anticoagulation at this time due to post op large peptic ulcer repair and risk for bleeding. GI: Perforated peptic ulcer now status post laparoscopic primary repair by Dr. Valle 06/06/17 Treat for H pylori with clarithromycin/amoxicillin/PPI 14 days (presently on Zosyn postoperatively) Pantoprazole drip FEN/RENAL: Acute hyperkalemia Acute kidney injury Dunbar in place. Monitor intake and output. Hyperkalemia medically managed with calcium gluconate 2 g IV, bicarb 100 mg IV, dextrose 50 g IV, regular insulin 10 units IV. Potassium down trended initially then back up to 6.9 postoperatively. Treated medically again with the same treatment and Kayexalate. Continue fluids as per above. ID: Severe sepsis Left lower leg cellulitis Empiric treatment was initiated for perforated viscus including Zosyn, Diflucan. Also vancomycin (particularly in view of skin lesions/cellulitis). Follow-up blood culture. Short course of empiric antibiotic and then transition to therapy for H. pylori for 14 days (clarithromycin, amoxicillin) UA negative Chest x-ray with increasing right lower lobe opacity. Will send sputum culture. HEME: Monitor CBC ENDO: Euglycemic. PROPH: No SCDs for now due to concern for PAD. Hold off on pharmacologic DVT prophylaxis due to postoperative from peptic ulcer and there is risk for bleeding. On pantoprazole drip as per above which will afford stress ulcer prophylaxis ACCESS: Peripheral IV providing adequate access at this time Patient is critically ill with high risk for further decompensation. He is requiring emergent treatment for severe hyperkalemia and severe sepsis without which treatment he would . Discussed with Dr. Valle Critical care time 60 minutes exclusive of separately billable procedures. Problem Qualifiers (1) Acute renal failure: Qualified Codes: N17.9 - Acute kidney failure, unspecified Adeline Magdaleno MD Jun 06, 2017 03:00
[2017-06-06] MEDS ORDERED: MORPHINE SULFATE 4 MG/ML INJ ONE (03:14)
[2017-06-06] MEDS ORDERED: PROPOFOL 1000 MG/100 ML IV PRN (03:30)
[2017-06-06] MEDS ORDERED: *morphine SULFATE 4 MG/ML PERIprocedure ONLY ONE (03:40)
[2017-06-06] MEDS: PROPOFOL 1000 MG/100 ML INJ 100 ML IV PRN ×4 (03:45→20:27)
[2017-06-06] MEDS ORDERED: METOPROLOL TARTRATE 5 MG/5 ML VIAL ONE (04:07)
[2017-06-06] MEDS: METOPROLOL TARTRATE 5 MG/5 ML VIAL IV PUSH SCH ×5 (04:12→23:44)
[2017-06-06] MEDS ORDERED: Vancomycin Consult Pharmacy 1 EA OTHER SCH (04:30)
[2017-06-06] MEDS ORDERED: DEXTROSE 50% IN WATER 50 ML VIAL(D50) IV PUSH ONE (04:30)
[2017-06-06] MEDS ORDERED: INSULIN HUMAN REGULAR 1,000 UNITS/10 ML VIAL IV PUSH ONE (04:30)
[2017-06-06] MEDS ORDERED: SODIUM BICARBONATE 8.4% SOLN 50 MEQ/50 ML VIAL IV PUSH ONE (04:30)
[2017-06-06] MEDS ORDERED: METOPROLOL TARTRATE 5 MG/5 ML VIAL IV ONE (04:45)
[2017-06-06] MEDS: PANTOPRAZOLE INJ 80 MG in SODIUM CHLORIDE 0.9% INJ 100 ML IV SCH ×3 (04:46→22:31)
[2017-06-06] MEDS ORDERED: DO NOT ADM ANY ANTICOAGULANT DRUGS PRN (05:00)
[2017-06-06] MEDS ORDERED: *morphine SULFATE 8 MG/ML PERIprocedure ONLY ONE (05:12)
[2017-06-06 05:13] LABS: AUTOMATED NEUTROPHIL # 19.8 TH/MM3 (1.8-7.7); BASOPHIL # 0.1 TH/MM3 (0-0.2); BASOPHIL % 0.3 % (0.0-2.0); HEMATOCRIT 41.1 % (39.0-51.0); HEMOGLOBIN 13.8 GM/DL (13.0-17.0); LYMPH % 4.5 % (9.0-44.0); MEAN CELL VOLUME 95.4 FL (80.0-100.0); MEAN CORPUSCULAR HGB CONC 33.5 % (32.0-36.0); MEAN PLATELET VOLUME 9.8 FL (7.0-11.0); MONO % 3.5 % (0.0-8.0); MONOCYTE # 0.7 TH/MM3 (0-0.9); NEUT % 91.7 % (16.0-70.0); PLATELET COUNT 371 TH/MM3 (150-450); RED BLOOD COUNT 4.31 MIL/MM3 (4.50-5.90); RED CELL DISTRIBUTION WIDTH 15.1 % (11.6-17.2); WHITE BLOOD COUNT 21.6 TH/MM3 (4.0-11.0)
[2017-06-06 05:29] LABS: ALBUMIN 1.3 GM/DL (3.4-5.0); ALKALINE PHOSPHATASE 219 U/L (45-117); ALT (GPT) 79 U/L (12-78); AST (GOT) 94 U/L (15-37); BICARBONATE 19.8 MEQ/L (21.0-32.0); BLOOD UREA NITROGEN 62 MG/DL (7-18); CALCIUM 8.1 MG/DL (8.5-10.1); CHLORIDE 107 MEQ/L (98-107); CREATININE 1.15 MG/DL (0.60-1.30); GLOMERULAR FILTRATION RATE 64 ML/MIN (>89); GLUCOSE,RANDOM 85 MG/DL (74-106); MAGNESIUM 3.2 MG/DL (1.5-2.5); PHOSPHORUS 7.7 MG/DL (2.5-4.9); SODIUM (NA) 135 MEQ/L (136-145); TOTAL BILIRUBIN ADULT 2.2 MG/DL (0.2-1.0); TOTAL PROTEIN 6.2 GM/DL (6.4-8.2); TROPONIN I 0.02 NG/ML (0.02-0.05)
[2017-06-06] MEDS: PIPERACIL-TAZO 3.375 GM PREMIX 50 ML IV SCH ×3 (05:37→18:19)
[2017-06-06] MEDS ORDERED: SODIUM CHLOR 0.9% 1000 ML INJ 1,000 ML IV SCH (05:45)
[2017-06-06] MEDS ORDERED: SODIUM POLYSTYRENE SULFONATE 30 GM/120 ML ENEMA RECTAL ONE (06:00)
[2017-06-06] MEDS ORDERED: ONDANSETRON HCL 4 MG/2 ML VIAL IV PUSH PRN (07:00)
[2017-06-06] MEDS ORDERED: VANCOMYCIN INJ 1,600 MG in SODIUM CHLORID 0.9% 500 ML INJ 500 ML IV SCH (07:00)
[2017-06-06] MEDS ORDERED: LACTULOSE SYRUP 20 GM/30 ML CUP PO PRN (07:00)
[2017-06-06] MEDS ORDERED: CHLORHEXIDINE GLUCONATE 2 % 1 PACK (2 CLOTHS) TOP PRN (07:00)
[2017-06-06] MEDS ORDERED: BISACODYL 10 MG SUPP RECTAL PRN (07:00)
[2017-06-06] MEDS ORDERED: SENNOSIDES 8.6 MG TAB PO PRN (07:00)
[2017-06-06] MEDS ORDERED: ACETAMINOPHEN 325 MG TAB PO PRN (07:00)
[2017-06-06] MEDS ORDERED: NURSING INFORMATION XX SCH (07:00)
[2017-06-06] MEDS ORDERED: RESP: ALBUTEROL 2.5 MG/3 ML NEB (PRN) INH (07:00)
[2017-06-06] MEDS ORDERED: MAGNESIUM HYDROXIDE SUSP 30 ML CUP PO PRN (07:00)
[2017-06-06] MEDS: SODIUM CHLOR 0.9% 1000 ML INJ 1,000 ML IV SCH ×2 (08:15→16:36)
[2017-06-06] MEDS: CHLORHEXIDINE 0.12% (ORAL KIT) 15 ML CUP MT SCH ×2 (08:19→20:27)
[2017-06-06] MEDS: SODIUM CHLORIDE 0.9% FLUSH 10 ML FLUSH IV FLUSH SCH ×2 (08:20→20:27)
[2017-06-06] MEDS ORDERED: CLARITHROMYCIN 250 MG/5 ML OG-TUBE SCH (09:00)
[2017-06-06] MEDS: DOCUSATE SODIUM 50 MG/SENNA 8.6 MG TAB PO SCH ×3 (09:00→21:00)
[2017-06-06 09:01] LABS: BICARBONATE 24.9 MEQ/L (21.0-32.0); CALCIUM 7.7 MG/DL (8.5-10.1); CREATININE 1.09 MG/DL (0.60-1.30)
[2017-06-06] MEDS: SODIUM BICARBONATE 8.4% INJ 150 MEQ in WATER STERILE FOR INJ 850 ML IV SCH ×3 (09:12→22:31)
[2017-06-06] MEDS ORDERED: SODIUM POLYSTYRENE SULFONATE SUSP 15 GM/60 ML CUP PO ONE (09:30)
[2017-06-06] MEDS ORDERED: RESP: ALBUTEROL 2.5 MG/IPRATROPIUM 0.5 MG NEB (SCH) INH (10:00)
--- NOTE | 2017-06-06 10:03 | EKG ---
Date Performed: 06/05/2017 Time Performed: 20:20:13 PTAGE: 62 years EKG: SINUS TACHYCARDIA LEFT ATRIAL ENLARGEMENT ANTEROLATERAL MYOCARDIAL INFARCTION ABNORMAL ECG NO PREVIOUS TRACING ST segment elevation is noted in leads II, III, and aVF as well as V5 and V6. Consider acute inferior infarction. DOCTOR: Patrick Butts Interpretating Date/Time 06/06/2017 10:02:22
--- NOTE | 2017-06-06 10:04 | EKG ---
Date Performed: 06/05/2017 Time Performed: 23:09:32 PTAGE: 62 years EKG: ATRIAL FIBRILLATION WITH RAPID VENTRICULAR RESPONSE INFERIOR MYOCARDIAL INFARCTION ANTEROLA TERAL MYOCARDIAL INFARCTION ACUTE IL PREVIOUS TRACING : 06/05/2017 20.20 Compared to the prior study, atrial fibrillation with rapid ventricular response is now present. There is no significant change in ST segment elevation in the inferior leads. DOCTOR: Patrick Butts Interpretating Date/Time 06/06/2017 10:02:56
--- NOTE | 2017-06-06 10:11 | EKG ---
Date Performed: 06/06/2017 Time Performed: 04:31:44 PTAGE: 62 years EKG: Sinus arrhythmia Possible extensive infarct - age undetermined Abnormal ECG PREVIOUS TRACING : 06/05/2017 23.09 Compared to the prior study, Sinus rhythm is now present. ST segment elevation in leads II, III, and aVF has resolved. DOCTOR: Patrick Butts Interpretating Date/Time 06/06/2017 10:09:42
[2017-06-06 10:44] LABS: MAGNESIUM 3.1 MG/DL (1.5-2.5); PHOSPHORUS 6.9 MG/DL (2.5-4.9)
--- NOTE | 2017-06-06 11:56 | PD.CONS ---
HPI Consult Requested By Reason for Consult Acute renal insufficiency Hyperkalemia. Primary Care Physician Unknown History of Present Illness Patient currently awake but intubated. Limited history available at this time. Patient apparently has a history of hypertension and he did indicate that he was using an NSAID at home for analgesia. From the records in the EMR patient was experiencing abdominal pain for about 2 weeks. Subsequently presented to the emergency room was noted to have evidence of acute renal insufficiency with a creatinine 1.90 and a potassium initially of 7.3. There is also evidence of metabolic acidosis. CT scan done with contrast revealed free air and the patient subsequently underwent laparoscopic repair of gastric ulcer with using a Silverio patch early this a.m. Patient has also received a Kayexalate enema earlier this morning. Potassium level now 6.4 and creatinine has returned to normal range at time of consultation 1.09. Urine output appears to be fair. Review of Systems ROS Limitations: Clinical Condition Past Family Social History Allergies: Coded Allergies: No Known Allergies (Unverified , 06/05/17) Past Medical History Hypertension. Past Surgical History Limited history available at this time. Reported Medications Patient apparently was using an NSAID prior to presentation. Active Ordered Medications Current Medications Ondansetron HCl (Zofran Inj) 4 mg ONCE ONCE IV PUSH Last administered on at 21:00; Start 06/05/17 at 20:15; Stop 06/05/17 at 20:16; Status DC Sodium Chloride 1,000 ml @ 1,000 mls/hr Q1H ONCE IV Last administered on at 21:01; Start 06/05/17 at 20:11; Stop 06/05/17 at 21:10; Status DC Morphine Sulfate (Morphine Inj) 4 mg ONCE ONCE IV PUSH Last administered on at 21:01; Start 06/05/17 at 20:15; Stop 06/05/17 at 20:16; Status DC Sodium Chloride 250 ml @ 15 mls/hr ONCE ONCE IV ; Start 06/05/17 at 21:15; Stop 06/06/17 at 13:54 Sodium Chloride 1,000 ml @ 999 mls/hr BOLUS ONCE IV Last administered on 06/05at 23:18; Start 06/05/17 at 21:30; Stop 06/05/17 at 22:30; Status DC Sodium Polystyrene Sulfonate (Kayexalate Liq) 30 gm ONCE ONCE PO ; Start at 21:30; Stop 06/05/17 at 21:31; Status DC Iodixanol (VISIPAQUE 320 INJ (Rad CT)) 47 ml STK-MED ONCE IVCONTRAST Last administered on 06/05/17at 22:18; Start 06/05/17 at 22:18; Stop 06/05/17 at 22:19 ; Status DC Hydromorphone HCl (Dilaudid Pf Inj) 0.5 mg ONCE ONCE IV PUSH Last administered on 06/05/17at 23:20; Start 06/05/17 at 23:15; Stop 06/05/17 at 23:16 ; Status DC Piperacillin Sod/ Tazobactam Sod 100 ml @ 200 mls/hr ONCE STAT IV Last administered on 06/05/17at 23:21; Start 06/05/17 at 23:07; Stop 06/05/17 at 23:36 ; Status DC Calcium Gluconate 2 gm/Sodium Chloride 120 ml @ 120 mls/hr ONCE ONCE IV Last administered on 06/06/17at 00:00; Start 06/05/17 at 23:30; Stop 06/06/17 at 00:29 ; Status DC Sodium Bicarbonate (Sodium Bicarbonate 8.4% Inj) 100 meq ONCE ONCE IV PUSH ; Start 06/05/17 at 23:30; Stop 06/05/17 at 23:31; Status DC Esmolol HCl/ Sodium Chloride 250 ml @ 0 mls/hr TITRATE PRN IV Blood Pressure Management; Start 06/05/17 at 23:30; Stop 06/06/17 at 06:53; Status DC Dextrose (D50w (Vial) Inj) 50 ml ONCE ONCE IV PUSH Last administered on at 00:00; Start 06/05/17 at 23:30; Stop 06/05/17 at 23:31; Status DC Insulin Human Regular (NovoLIN R INJ) 10 units ONCE ONCE IV PUSH Last administered on 06/05/17at 23:59; Start 06/05/17 at 23:30; Stop 06/05/17 at 23:31 ; Status DC Fluconazole/ Sodium Chloride 200 ml @ 100 mls/hr Q24H IV Last administered on 06/05/17at 23:49; Start 06/05/17 at 23:30 Hydromorphone HCl (Dilaudid Pf Inj) 0.5 mg ONCE ONCE IV PUSH Last administered on 06/05/17at 23:37; Start 06/05/17 at 23:45; Stop 06/05/17 at 23:46 ; Status DC Bupivacaine HCl/ Epinephrine Bitart (Sensorcaine-Epinephrine 0.25% Inj) 50 ml STK-MED ONCE .ROUTE Last administered on 06/06/17at 01:17; Start 06/06/17 at 00: 02; Stop 06/06/17 at 00:03; Status DC Pantoprazole Sodium 80 mg/ Sodium Chloride 100 ml @ 10 mls/hr CONTINUOUS IV Last administered on 06/06/17at 04:46; Start 06/06/17 at 01:00 Sodium Bicarbonate (Sodium Bicarbonate 8.4% Inj) 100 meq STK-MED ONCE .ROUTE ; Start 06/06/17 at 01:38; Stop 06/06/17 at 01:39; Status DC Esmolol HCl (Brevibloc Bolus Inj) 100 mg STK-MED ONCE .ROUTE ; Start 06/06/17 at 02:29; Stop 06/06/17 at 02:30; Status DC Fentanyl Citrate (fentaNYL INJ) 300 mcg STK-MED ONCE .ROUTE ; Start 06/06/17 at 03:14; Stop 06/06/17 at 03:15; Status DC Morphine Sulfate (Morphine Inj) 4 mg STK-MED ONCE .ROUTE ; Start 06/06/17 at 03: 14; Stop 06/06/17 at 03:15; Status DC Propofol 100 ml @ 5.873 mls/ hr TITRATE PRN IV Sedation; Start 06/06/17 at 03: 30; Stop 06/06/17 at 04:43; Status DC Morphine Sulfate (*morphine INJ PERIprocedure ONLY) 4 mg STK-MED ONCE .ROUTE Last administered on 06/06/17at 03:41; Start 06/06/17 at 03:40; Stop 06/06/17 at 03:41; Status DC Miscellaneous Information ALL NURSING DEPARTME... UNSCH PRN .XX SEE LABEL COMMENTS; Start 06/06/17 at 05:00; Stop 06/07/17 at 04:59 Metoprolol Tartrate (Lopressor Inj) 5 mg STK-MED ONCE .ROUTE ; Start 06/06/17 at 04:07; Stop 06/06/17 at 04:08; Status DC Dextrose (D50w (Vial) Inj) 50 ml ONCE ONCE IV PUSH Last administered on at 05:03; Start 06/06/17 at 04:30; Stop 06/06/17 at 04:31; Status DC Insulin Human Regular (NovoLIN R INJ) 10 units ONCE ONCE IV PUSH Last administered on 06/06/17at 04:58; Start 06/06/17 at 04:30; Stop 06/06/17 at 04:32 ; Status DC Sodium Bicarbonate (Sodium Bicarbonate 8.4% Inj) 100 meq ONCE ONCE IV PUSH Last administered on 06/06/17at 05:07; Start 06/06/17 at 04:30; Stop 06/06/17 at 04:32; Status DC Piperacillin Sod/ Tazobactam Sod 50 ml @ 100 mls/hr Q6H IV Last administered on 06/06/17at 05:37; Start 06/06/17 at 06:00 Pharmacy Profile Note 0 ml @ 0 mls/hr UNSCH OTHER ; Start 06/06/17 at 04:30 Metoprolol Tartrate (Lopressor Inj) 5 mg Q6H IV PUSH ; Start 06/06/17 at 05:00 Clarithromycin (Biaxin 250 Mg/5 ml Liq) 500 mg BID OG-TUBE ; Start 06/06/17 at 09:00 Vancomycin HCl 1600 mg/Sodium Chloride 516 ml @ 250 mls/hr DAILY@0700 IV Last administered on 06/06/17at 06:28; Start 06/06/17 at 07:00; Stop 06/06/17 at 10:02 ; Status DC Chlorhexidine Gluconate (Peridex 0.12% Liq) 15 ml BID@08,20 MT Last administered on 06/06/17at 08:19; Start 06/06/17 at 08:00 Propofol 100 ml @ 2.865 mls/ hr TITRATE PRN IV SEDATION Last administered on at 11:00; Start 06/06/17 at 04:45 Metoprolol Tartrate (Lopressor Inj) 5 mg NOW ONCE IV ; Start 06/06/17 at 04:45 ; Stop 06/06/17 at 04:46; Status DC Morphine Sulfate (*morphine INJ PERIprocedure ONLY) 8 mg STK-MED ONCE .ROUTE Last administered on 06/06/17at 05:14; Start 06/06/17 at 05:12; Stop 06/06/17 at 05:13; Status DC Sodium Polystyrene Sulfonate (Kayexalate Enema) 30 gm ONCE ONCE RECTAL ; Start 06/06/17 at 06:00; Stop 06/06/17 at 06:01; Status Cancel Sodium Chloride 1,000 ml @ 125 mls/hr Q8H IV Last administered on 06/06/17at 05 :45; Start 06/06/17 at 05:45; Stop 06/06/17 at 08:09; Status DC Sodium Chloride (NS Flush) 2 ml UNSCH PRN IV FLUSH FLUSH AFTER USING IV ACCESS ; Start 06/06/17 at 07:00 Sodium Chloride (NS Flush) 2 ml BID IV FLUSH Last administered on 06/06/17at 08: 20; Start 06/06/17 at 09:00 Acetaminophen (Tylenol) 650 mg Q6H PRN PO TEMP >101; Start 06/06/17 at 07:00 Fentanyl Citrate (fentaNYL INJ) 50 mcg Q1H PRN IV PUSH PAIN; Start 06/06/17 at 07:00 Ondansetron HCl (Zofran Inj) 4 mg Q6H PRN IV PUSH NAUSEA OR VOMITING; Start at 07:00 Albuterol/ Ipratropium (Duoneb Neb) 1 ampule Q6HR NEB INH Last administered on 06/06/17at 08:59; Start 06/06/17 at 10:00 Albuterol Sulfate (Albuterol Neb) 2.5 mg Q2HR NEB PRN INH SOB/WHEEZING; Start 06/06/17 at 07:00 Miscellaneous Information 1 [id number] Last administered on 06/06/17at 08:20; Start 06/06/17 at 07:00 Chlorhexidine Gluconate (Chlorhexidine 2% Cloth) 3 pack Taper DAILY@04 TOP ; Start 06/07/17 at 04:00; Stop 06/03/18 at 03:59 Chlorhexidine Gluconate (Chlorhexidine 2% Cloth) 3 pack UNSCH PRN TOP HYGIENIC CARE; Start 06/06/17 at 07:00 Senna/Docusate Sodium (Liz-Colace) 1 tab BID PO ; Start 06/06/17 at 09:00 Magnesium Hydroxide (Milk Of Magnesia Liq) 30 ml Q12H PRN PO Mild constipation ; Start 06/06/17 at 07:00 Sennosides (Senokot) 17.2 mg Q12H PRN PO Moderate constipation; Start 06/06/17 at 07:00 Bisacodyl (Dulcolax Supp) 10 mg DAILY PRN RECTAL SEVERE CONSITIPATION; Start at 07:00 Lactulose (Lactulose Liq) 30 ml DAILY PRN PO SEVERE CONSITIPATION; Start at 07:00 Sodium Bicarbonate 150 meq/Sterile Water 1,000 ml @ 150 mls/hr Q6H40M IV Last administered on 06/06/17at 09:12; Start 06/06/17 at 09:00; Stop 06/06/17 at 23:00 Sodium Chloride 1,000 ml @ 42 mls/hr [id number] IV ; Start 06/06/17 at 08:15 Sodium Polystyrene Sulfonate (Kayexalate Liq) 30 gm ONCE ONCE PO Last administered on 06/06/17at 09:29; Start 06/06/17 at 09:30; Stop 06/06/17 at 09:31 ; Status DC Vancomycin HCl 1250 mg/Sodium Chloride 262.5 ml @ 250 mls/hr Q12H IV ; Start at 18:00 Miscellaneous Information SPECIFIC LAB TO BE ... ONCE ONCE .XX ; Start 06/07 at 17:45; Stop 06/07/17 at 17:46 Family History Unobtainable from patient presently. Social History Obtained from patient presently. Physical Exam Vital Signs Vital Signs Date Time Temp Pulse Resp B/P (MAP) Pulse Ox O2 Delivery O2 Flow Rate FiO2 06/06/17 08:59 97 50 06/06/17 08:00 79 16 100/59 (73) 97 92/43 (59) 06/06/17 07:01 98 60 06/06/17 07:00 98.9 115 16 117/61 (79) 97 105/45 (65) 06/06/17 07:00 80 06/06/17 06:55 60 06/06/17 06:30 88 16 122/62 (82) 98 Mechanical Ventilator 60 127/62 (83) 06/06/17 06:00 98.7 83 16 118/57 (77) 97 Mechanical Ventilator 60 119/56 (77) 06/06/17 05:30 80 16 128/66 (86) 98 Mechanical Ventilator 60 127/62 (83) 06/06/17 05:00 60 06/06/17 05:00 84 16 128/62 (84) 97 Mechanical Ventilator 60 141/56 (84) 06/06/17 04:45 81 16 115/62 (79) 96 Mechanical Ventilator 60 116/58 (77) 06/06/17 04:30 81 16 124/67 (86) 96 Mechanical Ventilator 60 133/63 (86) 06/06/17 04:15 79 16 112/59 (76) 96 Mechanical Ventilator 60 119/57 (77) 06/06/17 04:00 98.5 128 16 117/65 (82) 95 Mechanical Ventilator 60 122/59 (80) 06/06/17 03:45 134 16 134/73 (93) 95 Mechanical Ventilator 60 135/60 (85) 06/06/17 03:30 114 15 110/59 (76) 95 Mechanical Ventilator 60 122/67 (85) 06/06/17 03:15 114 15 109/65 (80) 95 Mechanical Ventilator 60 06/06/17 03:03 96 60 06/06/17 03:00 98.3 120 15 92/60 (71) 99 Mechanical Ventilator 60 06/06/17 03:00 60 06/06/17 01:14 06/06/17 01:14 36 06/06/17 00:00 134 34 134/70 (91) 95 Non-Rebreather 15.00 06/05/17 23:00 98.1 156 38 138/62 (87) 94 Non-Rebreather 15.00 06/05/17 22:45 160 36 138/69 (92) 95 Non-Rebreather 15.00 06/05/17 22:45 95 Non-Rebreather 15.00 06/05/17 21:30 110 36 140/69 (92) 94 Nasal Cannula 4.00 06/05/17 21:04 147/69 (95) 152/79 (103) 06/05/17 20:33 93 Nasal Cannula 2.00 06/05/17 20:33 93 Nasal Cannula 2.00 06/05/17 20:09 110 30 158/79 (105) 91 Nasal Cannula 2.00 06/05/17 20:09 30 06/05/17 17:30 98.2 105 18 159/95 (116) 95 Physical Exam GENERAL: Patient currently intubated on ventilatory support. Appears somewhat lethargic but occasionally nods to questions yes or no. Not in any distress clinically. SKIN: Warm and dry. HEAD: Normocephalic. EYES: No scleral icterus. No injection or drainage. NECK: Supple, trachea midline. No JVD or lymphadenopathy. CARDIOVASCULAR: Regular rate and rhythm without murmurs, gallops, or rubs. RESPIRATORY: Breath sounds equal bilaterally. No accessory muscle use. GASTROINTESTINAL: Abdominal dressing is not disturbed. MUSCULOSKELETAL: No cyanosis, or edema. Laboratory Laboratory Tests Test 06/05/17 20:30 06/05/17 23:35 06/06/17 01:19 06/06/17 04:42 White Blood Count 20.1 21.6 Red Blood Count 5.22 4.31 Hemoglobin 16.9 13.8 Hematocrit 49.2 41.1 Mean Corpuscular Volume 94.2 95.4 Mean Corpuscular Hemoglobin 32.3 32.0 Mean Corpuscular Hemoglobin Concent 34.3 33.5 Red Cell Distribution Width 14.6 15.1 Platelet Count 381 371 Mean Platelet Volume 9.8 9.8 Neutrophils (%) (Auto) 93.9 91.7 Lymphocytes (%) (Auto) 2.5 4.5 Monocytes (%) (Auto) 3.1 3.5 Eosinophils (%) (Auto) 0.0 0.0 Basophils (%) (Auto) 0.5 0.3 Neutrophils # (Auto) 18.9 19.8 Lymphocytes # (Auto) 0.5 1.0 Monocytes # (Auto) 0.6 0.7 Eosinophils # (Auto) 0.0 0.0 Basophils # (Auto) 0.1 0.1 CBC Comment AUTO DIFF AUTO DIFF Differential Total Cells Counted 100 Neutrophils % (Manual) 79 Band Neutrophils % 12 Lymphocytes % 3 Monocytes % 3 Neutrophils # (Manual) 18.9 Metamyelocytes 2 Myelocytes 1 Differential Comment FINAL DIFF MANUAL AUTO DIFF CONFIRMED Platelet Estimate NORMAL Platelet Morphology Comment ENLARGED Prothrombin Time 12.8 Prothromb Time International Ratio 1.3 Activated Partial Thromboplast Time 41.6 Urine Color LIGHT-BROWN Urine Turbidity CLOUDY Urine pH 5.0 Urine Specific [place] 1.023 Urine Protein 30 Urine Glucose (UA) NEG Urine Ketones NEG Urine Occult Blood TRACE Urine Nitrite NEG Urine Bilirubin NEG Urine Urobilinogen 4.0 Urine Leukocyte Esterase TRACE Urine RBC 12 Urine WBC 5 Urine Amorphous Sediment RARE Urine Bacteria OCC Urine Mucus FEW Microscopic Urinalysis Comment CULT NOT INDICATED Blood Urea Nitrogen 79 69 62 Creatinine 1.92 1.29 1.15 Random Glucose 114 71 85 Total Protein 8.8 6.0 6.2 Albumin 1.5 1.2 1.3 Calcium Level 9.1 8.5 8.1 Magnesium Level 3.8 3.2 Alkaline Phosphatase 340 212 219 Aspartate Amino Transf (AST/SGOT) 39 20 94 Alanine Aminotransferase (ALT/SGPT) 53 32 79 Total Bilirubin 1.7 1.7 2.2 Sodium Level 126 135 135 Potassium Level 7.3 6.3 6.9 Chloride Level 99 108 107 Carbon Dioxide Level 16.9 17.9 19.8 Anion Gap 10 9 8 Estimat Glomerular Filtration Rate 36 56 64 Lactic Acid Level 1.5 Total Creatine Kinase 74 Troponin I LESS THAN 0.02 0.02 B-Type Natriuretic Peptide 82 Lipase 144 Blood Gas Puncture Site RT RADIAL ART LINE Blood Gas Patient Temperature 98.6 98.6 Blood Gas HCO3 14 17 Blood Gas Base Excess -11.0 -9.4 Blood Gas Oxygen Saturation 95 96 Arterial Blood pH 7.32 7.22 Arterial Blood Partial Pressure CO2 28 44 Arterial Blood Partial Pressure O2 119 268 Arterial Blood Oxygen Content 21.4 19.4 Arterial Blood Carboxyhemoglobin 1.6 1.2 Arterial Blood Methemoglobin 0.9 1.7 Blood Gas Hemoglobin 15.9 14.0 Oxygen Delivery Device NRB VENTILATOR Blood Gas Liter Flow 15 Blood Gas Inspired Oxygen 100 97 Blood Gas Ventilator Setting OR Phosphorus Level 7.7 Test 06/06/17 06:43 06/06/17 07:13 06/06/17 08:06 Potassium Level 6.3 6.4 Blood Gas Puncture Site RT RADIAL Blood Gas Patient Temperature 98.6 Blood Gas HCO3 23 Blood Gas Base Excess -1.8 Blood Gas Oxygen Saturation 96 Arterial Blood pH 7.32 Arterial Blood Partial Pressure CO2 47 Arterial Blood Partial Pressure O2 137 Arterial Blood Oxygen Content 18.5 Arterial Blood Carboxyhemoglobin 1.3 Arterial Blood Methemoglobin 1.2 Blood Gas Hemoglobin 13.6 Oxygen Delivery Device VENTILATOR Blood Gas Ventilator Setting PRVC/AC Blood Gas Inspired Oxygen 60 Blood Urea Nitrogen 56 Creatinine 1.09 Random Glucose 80 Calcium Level 7.7 Sodium Level 137 Chloride Level 106 Carbon Dioxide Level 24.9 Anion Gap 6 Estimat Glomerular Filtration Rate 69 Phosphorus Level 6.9 Magnesium Level 3.1 Date/Time Source Procedure Growth Status 06/05/17 21:45 Blood Peripheral Aerobic Blood Culture - Preliminary NO GROWTH IN 1 DAY Resulted 06/05/17 21:45 Blood Peripheral Anaerobic Blood Culture - Preliminary NO GROWTH IN 1 DAY Resulted Result Diagram: 06/06/17 0442 06/06/17 0806 Imaging Last [address] 06/05/172102 Signed Impressions: Service Date/Time: Monday, June 05, 2017 21:58 - CONCLUSION: 1. Bilateral atelectasis. 2. 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 3. No aneurysm or dissection of the thoracic aorta. Paul Palencia MD Chest X-Ray 06/05/172010 Signed Impressions: Service Date/Time: Monday, June 05, 2017 20:30 - CONCLUSION: 1. Cardiomegaly. 2. Suspected minimal atelectasis at the bases. Paul Bernal MD ADDENDUM : I have been asked to review this case. There is some curvilinear lucency seen in the right lower chest/upper abdomen region. Free intraperitoneal air cannot be excluded. The patient is scheduled for CT examination. Paul Bernal MD Abdomen/Pelvis CT 06/05/172010 Signed Impressions: Service Date/Time: Monday, June 05, 2017 21:58 - CONCLUSION: 1. Free intraperitoneal air and fluid. The source is not fluid identified. 2. Bibasilar is a consolidation or atelectasis at the lung bases. 3. Small right renal calcifications which may represent nonobstructing renal stones. Paul Bernal MD Assessment and Plan Problem List: (1) Acute renal failure ICD Codes: N17.9 - Acute kidney failure, unspecified Status: Acute Plan: Primarily secondary to intravascular volume depletion, usage of an NSAID prior to admission and possible sepsis syndrome. Creatinine level of his to have improved significantly with IV hydration. Continue to monitor. Medications should be adjusted for the patient's estimated GFR if clinically indicated. Avoid agents with significant potential for nephrotoxicity possible including NSAIDs for analgesia, iodine contrast agents. Gadolinium is contraindicated if the GFR is below 30. (2) Hyperkalemia ICD Codes: E87.5 - Hyperkalemia Status: Acute Plan: Patient's potassium level appears to be trending downward with improvement in renal function, correction of acidosis and improved hydration status as well as discontinuance of the NSAID patient was apparently using outside.. Continue to monitor potassium level. Repeat Kayexalate enema if required and could consider utilizing an albuterol treatment to also help reduce the potassium level. Suspect potassium level will self correct however given improved urinary output and renal status. (3) Metabolic acidosis ICD Codes: E87.2 - Acidosis Status: Resolved Plan: Most likely related to acute renal insufficiency and sepsis syndrome. Improved. Problem Qualifiers (1) Acute renal failure: Qualified Codes: N17.9 - Acute kidney failure, unspecified Anita Oseguera MD Jun 06, 2017 11:56
[2017-06-06] MEDS ORDERED: LIDOCAINE HCL 1% PF 5 ML SYRINGE OTHER ONE (12:00)
[2017-06-06] MEDS ORDERED: LACTATED RINGER'S 1000 ML INJ 2,000 ML IV ONE (12:00)
[2017-06-06] MEDS ORDERED: ESMOLOL HCL 100 MG/10 ML VIAL IV ONE (12:00)
[2017-06-06] MEDS ORDERED: ROCURONIUM INJ 50 MG/5 ML SYRINGE IV PUSH ONE (12:00)
[2017-06-06] MEDS ORDERED: PHENYLEPH/NS 1000 MCG/10 ML SYR IV ONE (12:00)
[2017-06-06] MEDS ORDERED: PROPOFOL 200 MG/20 ML AMP IV ONE (12:00)
--- NOTE | 2017-06-06 12:15 | RADRPT ---
EXAM DATE/TIME: 06/06/2017 11:40 [facility] COMPARISON: CHEST SINGLE AP, June 05, 2017, 20:30. INDICATIONS : Short of breath MEDICAL HISTORY : Hypertension. Myocardial infarction. SURGICAL HISTORY : None. ENCOUNTER: Initial ACUITY: 1 day PAIN SCORE: 0/10 LOCATION: chest FINDINGS: ET tube and nasogastric tube in good position. Minimal bibasilar parenchymal changes increasing on t he right. No pneumothorax. The heart and pulmonary vascularity are normal. CONCLUSION: Increasing parenchymal changes right base. Marcos Fierro MD FACR on June 06, 2017 at 11:59 Board Certified Radiologist. This report was verified electronically.
[2017-06-06 14:58] LABS: BICARBONATE 26.2 MEQ/L (21.0-32.0); CALCIUM 7.8 MG/DL (8.5-10.1); CREATININE 0.99 MG/DL (0.60-1.30)
--- NOTE | 2017-06-06 15:01 | HHI.PR ---
Subjective Subjective Notes On mechanical ventilation with eyes closed but able to shake head for yes and no questions SARAH Oliver at bedside during exam Objective Vitals/I&O Vital Signs Date Time Temp Pulse Resp B/P (MAP) Pulse Ox O2 Delivery O2 Flow Rate FiO2 06/06/17 12:00 99.1 82 16 135/63 (87) 99 116/50 (72) 06/06/17 08:59 50 06/06/17 06:30 Mechanical Ventilator 06/06/17 00:00 15.00 Labs Laboratory Tests Test 06/05/17 20:30 06/05/17 23:35 06/06/17 01:19 06/06/17 04:42 White Blood Count 20.1 21.6 Red Blood Count 5.22 4.31 Hemoglobin 16.9 13.8 Hematocrit 49.2 41.1 Mean Corpuscular Volume 94.2 95.4 Mean Corpuscular Hemoglobin 32.3 32.0 Mean Corpuscular Hemoglobin Concent 34.3 33.5 Red Cell Distribution Width 14.6 15.1 Platelet Count 381 371 Mean Platelet Volume 9.8 9.8 Neutrophils (%) (Auto) 93.9 91.7 Lymphocytes (%) (Auto) 2.5 4.5 Monocytes (%) (Auto) 3.1 3.5 Eosinophils (%) (Auto) 0.0 0.0 Basophils (%) (Auto) 0.5 0.3 Neutrophils # (Auto) 18.9 19.8 Lymphocytes # (Auto) 0.5 1.0 Monocytes # (Auto) 0.6 0.7 Eosinophils # (Auto) 0.0 0.0 Basophils # (Auto) 0.1 0.1 CBC Comment AUTO DIFF AUTO DIFF Differential Total Cells Counted 100 Neutrophils % (Manual) 79 Band Neutrophils % 12 Lymphocytes % 3 Monocytes % 3 Neutrophils # (Manual) 18.9 Metamyelocytes 2 Myelocytes 1 Differential Comment FINAL DIFF MANUAL AUTO DIFF CONFIRMED Platelet Estimate NORMAL Platelet Morphology Comment ENLARGED Prothrombin Time 12.8 Prothromb Time International Ratio 1.3 Activated Partial Thromboplast Time 41.6 Urine Color LIGHT-BROWN Urine Turbidity CLOUDY Urine pH 5.0 Urine Specific [place] 1.023 Urine Protein 30 Urine Glucose (UA) NEG Urine Ketones NEG Urine Occult Blood TRACE Urine Nitrite NEG Urine Bilirubin NEG Urine Urobilinogen 4.0 Urine Leukocyte Esterase TRACE Urine RBC 12 Urine WBC 5 Urine Amorphous Sediment RARE Urine Bacteria OCC Urine Mucus FEW Microscopic Urinalysis Comment CULT NOT INDICATED Blood Urea Nitrogen 79 69 62 Creatinine 1.92 1.29 1.15 Random Glucose 114 71 85 Total Protein 8.8 6.0 6.2 Albumin 1.5 1.2 1.3 Calcium Level 9.1 8.5 8.1 Magnesium Level 3.8 3.2 Alkaline Phosphatase 340 212 219 Aspartate Amino Transf (AST/SGOT) 39 20 94 Alanine Aminotransferase (ALT/SGPT) 53 32 79 Total Bilirubin 1.7 1.7 2.2 Sodium Level 126 135 135 Potassium Level 7.3 6.3 6.9 Chloride Level 99 108 107 Carbon Dioxide Level 16.9 17.9 19.8 Anion Gap 10 9 8 Estimat Glomerular Filtration Rate 36 56 64 Lactic Acid Level 1.5 Total Creatine Kinase 74 Troponin I LESS THAN 0.02 0.02 B-Type Natriuretic Peptide 82 Lipase 144 Blood Gas Puncture Site RT RADIAL ART LINE Blood Gas Patient Temperature 98.6 98.6 Blood Gas HCO3 14 17 Blood Gas Base Excess -11.0 -9.4 Blood Gas Oxygen Saturation 95 96 Arterial Blood pH 7.32 7.22 Arterial Blood Partial Pressure CO2 28 44 Arterial Blood Partial Pressure O2 119 268 Arterial Blood Oxygen Content 21.4 19.4 Arterial Blood Carboxyhemoglobin 1.6 1.2 Arterial Blood Methemoglobin 0.9 1.7 Blood Gas Hemoglobin 15.9 14.0 Oxygen Delivery Device NRB VENTILATOR Blood Gas Liter Flow 15 Blood Gas Inspired Oxygen 100 97 Blood Gas Ventilator Setting OR Phosphorus Level 7.7 Test 06/06/17 06:43 06/06/17 07:13 06/06/17 08:06 06/06/17 11:02 Potassium Level 6.3 6.4 Nasal Screen MRSA (PCR) MRSA NOT DETECTED Blood Gas Puncture Site RT RADIAL Blood Gas Patient Temperature 98.6 Blood Gas HCO3 23 Blood Gas Base Excess -1.8 Blood Gas Oxygen Saturation 96 Arterial Blood pH 7.32 Arterial Blood Partial Pressure CO2 47 Arterial Blood Partial Pressure O2 137 Arterial Blood Oxygen Content 18.5 Arterial Blood Carboxyhemoglobin 1.3 Arterial Blood Methemoglobin 1.2 Blood Gas Hemoglobin 13.6 Oxygen Delivery Device VENTILATOR Blood Gas Ventilator Setting PRVC/AC Blood Gas Inspired Oxygen 60 Blood Urea Nitrogen 56 Creatinine 1.09 Random Glucose 80 Calcium Level 7.7 Sodium Level 137 Chloride Level 106 Carbon Dioxide Level 24.9 Anion Gap 6 Estimat Glomerular Filtration Rate 69 Phosphorus Level 6.9 Magnesium Level 3.1 Total Creatine Kinase 42 Troponin I LESS THAN 0.02 Test 06/06/17 13:53 Date/Time Source Procedure Growth Status 06/05/17 21:45 Blood Peripheral Aerobic Blood Culture - Preliminary NO GROWTH IN 1 DAY Resulted 06/05/17 21:45 Blood Peripheral Anaerobic Blood Culture - Preliminary NO GROWTH IN 1 DAY Resulted 06/06/17 13:00 Sputum Endotracheal Gram Stain Pending Received 06/06/17 13:00 Sputum Endotracheal Sputum Culture Pending Received Cardiovascular: Regular Lungs: Clear Abdomen: Other (lap sites c/d/i; GLENN 1 with cloudy serous fluid; JP2 with cloudy SS drainage ), Post-op tenderness Extremities: Other Narrative Exam LEFT calf--- chronic appearing wound 2+ pitting edema in BLE; small dark spots on planter surface of foot A/P Assessment and Plan 62 year old male POD1 dx lap, lap modified marcos patch, washout for perforated viscus/large anterior gastric ulcer -Continue Zosyn/Diflucan -Continue coverage for H. Pylori -Monitor electrolyses -May benefit from Cardiac workup -NPO -NGT to LIWS -Routine GLENN care -Discussed with Dr. Talley as well as SARAH Oliver Attending Statement patient seen at bedside responsive but on vent no acute issues continue close isc care abx ppi wean to extubate per [facility] sx[facility] Attestation The exam, history, and the medical decision-making described in the above note were completed with the assistance of the mid-level provider. I reviewed and agree with the findings presented. I attest that I had a [id number] encounter with the patient on the same day, and personally performed and documented my assessment and findings in the medical record. Lana Otero/First Henny KING Jun 06, 2017 15:01 Vijay Valle MD Jun 17, 2017 09:52
[2017-06-06] MEDS: RESP: ALBUTEROL 2.5 MG/IPRATROPIUM 0.5 MG NEB (SCH) NEB ×2 (15:57→21:56)
[2017-06-06] MEDS: CLARITHROMYCIN 500 MG TAB OG-TUBE SCH ×3 (16:30→23:42)
--- NOTE | 2017-06-06 18:00 | HHI.CCPN ---
Subjective Remarks/Hospital Course 62 year old male who presented to [facility] emergency department with 2 week history of abdominal pain. He had acute abdomen on presentation. He underwent CT abdomen and pelvis that demonstrated free air and free fluid. General surgery was consulted and he was taken emergently to the operating room. He also presented with acute kidney injury and potassium of 7.3 and I ordered medical management with calcium, bicarb, insulin, dextrose prior to going to OR. Dr. Valle states patient had a large perforated gastric ulcer for which he performed laparoscopic primary repair. Patient will be transitioned to [facility] and [facility] is consulted for postoperative critical care management. 06/06 1700 hours: Continual resuscitative efforts throughout the day, complicated by excessive fluid requirements and persistent hyperkalemia. Ongoing manipulations with bicarb, glucose, insulin, kayexalate, and calcium to control potassium levels. Punctate blue spots on feet appear embolic, cause of superficial ulcerations on calves less clear. Remains ventilator dependent. Hemodynamics still unstable. Objective Vital Signs Date Time Temp Pulse Resp B/P (MAP) Pulse Ox O2 Delivery O2 Flow Rate FiO2 06/06/17 16:00 99.1 76 16 107/57 (74) 100 116/47 (70) 06/06/17 15:57 40 06/06/17 06:30 Mechanical Ventilator 06/06/17 00:00 15.00 Intake and Output 06/06/17 06/06/17 06/07/17 08:00 16:00 00:00 Intake Total 4420 ml Output Total 1320 ml Balance 3100 ml Result Diagram: 06/06/17 0442 06/06/17 1353 Other Results Laboratory Tests Test 06/05/17 23:35 06/06/17 01:19 06/06/17 07:13 Blood Gas Puncture Site RT RADIAL ART LINE RT RADIAL Blood Gas Patient Temperature 98.6 98.6 98.6 Blood Gas HCO3 14 mmol/L (22-26) 17 mmol/L (22-26) 23 mmol/L (22-26) Blood Gas Base Excess -11.0 mmol/L (-2-2) -9.4 mmol/L (-2-2) -1.8 mmol/L (-2-2) Blood Gas Oxygen Saturation 95 % (90-100) 96 % (90-100) 96 % (90-100) Arterial Blood pH 7.32 (7.380-7.420) 7.22 (7.380-7.420) 7.32 (7.380-7.420) Arterial Blood Partial Pressure CO2 28 mmHg (38-42) 44 mmHg (38-42) 47 mmHg (38-42) Arterial Blood Partial Pressure O2 119 mmHG (61-120) 268 mmHg (61-120) 137 mmHg (61-120) Arterial Blood Oxygen Content 21.4 Vol % (12.0-20.0) 19.4 Vol % (12.0-20.0) 18.5 Vol % (12.0-20.0) Arterial Blood Carboxyhemoglobin 1.6 % (0-4) 1.2 % (0-4) 1.3 % (0-4) Arterial Blood Methemoglobin 0.9 % (0-2) 1.7 % (0-2) 1.2 % (0-2) Blood Gas Hemoglobin 15.9 G/DL (12.0-16.0) 14.0 G/DL (12.0-16.0) 13.6 G/DL (12.0-16.0) Oxygen Delivery Device NRB VENTILATOR VENTILATOR Blood Gas Liter Flow 15 L/M Blood Gas Inspired Oxygen 100 % 97 % 60 % Blood Gas Ventilator Setting OR PRVC/AC Objective Remarks GENERAL: Chronically ill-appearing male. SKIN: Warm and dry. HEAD: Atraumatic. Normocephalic. EYES: Pupils equal and round, 3 mm and reactive bilaterally. No scleral icterus. ENT: No nasal bleeding or discharge. Mucous membranes pink and moist. NECK: Trachea midline. Orally intubated. CARDIOVASCULAR: Irregularly irregular, neck veins flat. No murmurs rubs or gallops appreciated. RESPIRATORY: Orotracheally intubated. Clear bilateral breath sounds. Good air movement. GASTROINTESTINAL: Abdomen protuberant and distended. Bowel sounds absent. GLENN drain 2. The right lateral drain is in the pelvis and the middle drain is near the ulcer closure. MUSCULOSKELETAL: Extremities without clubbing, cyanosis. There is 2+ bipedal edema. There are blisters over the dorsum of his left lower extremity that appears to be filled with serous and slightly hemorrhagic fluid. There is soft eschar overlying the lateral aspect of the left lower leg and just above the left lateral malleolus. Some erythema and warmth overlying lateral malleolus. No fluctuance or drainage. The soles of bilateral feet have embolic lesions. First toe on the left is discolored. Dopplerable pulses are present DP and posterior tibial arteries bilaterally. Feet are warm, edematous, and well perfused. NEUROLOGICAL: SHAWN Withdraws 4 limbs. A/P Assessment and Plan NEURO: Propofol for sedation Target RASS -2 Fentanyl as needed for pain Daily sedation vacation RESP: Acute postoperative respiratory failure COPD Emphysema Obstructive sleep apnea Obtain chest x-ray post intubation. PRVC. Ventilator bundle. CT chest bibasilar atelectasis DuoNeb every 6 hours. Albuterol every 2 hours awake. Spontaneous breathing trial Chest x-ray satisfactory endotracheal tube position. Right basilar pneumonia/ consolidation. CV: Coronary artery disease Prior myocardial infarction Hypertension Hyperlipidemia Atrial fibrillation with RVR Given metoprolol 5 mg IV and was then in sinus rhythm with rate in the 70s-80s. Will continue metoprolol 5 mg IV every 6 hours with hold orders based on heart rate and blood pressure. Received 2 L of crystalloid in the ED, 2300 of crystalloid in the OR. 0.9 NaCl at 125 mL/h. EKG sinus tach with ?inferior ST elevation, normalized on subsequent EKG. ?2ry to hyperkalemia. Troponin negative, will trend. Ongoing fluid demands. Probable PAD Embolic phenomenon bilateral feet. No AAA. Will obtain Echo, ALEJANDRA. Has paroxysmal atrial fibrillation but not candidate for full dose anticoagulation at this time due to post op large peptic ulcer repair and risk for bleeding. GI: Perforated peptic ulcer now status post laparoscopic primary repair by Dr. Valle 06/06/17 Treat for H pylori with clarithromycin/amoxicillin/PPI 14 days (presently on Zosyn postoperatively) Pantoprazole drip running. FEN/RENAL: Acute hyperkalemia Acute kidney injury Dunbar in place. Monitor intake and output. Hyperkalemia medically managed with calcium gluconate 2 g IV, bicarb 100 mg IV, dextrose 50 g IV, regular insulin 10 units IV. Potassium down trended initially then back up to 6.9 postoperatively. Treated medically again with the same treatment and Kayexalate. Continue fluids as per above. Add bicarb gtt for 12 hours. ID: Severe sepsis Left lower leg cellulitis Empiric treatment was initiated for perforated viscus including Zosyn, Diflucan. Also vancomycin (particularly in view of skin lesions/cellulitis). Follow-up blood culture. Short course of empiric antibiotic and then transition to therapy for H. pylori for 14 days (clarithromycin, amoxicillin) UA negative Chest x-ray with increasing right lower lobe opacity. Send sputum culture. HEME: Monitor CBC ENDO: Euglycemic. PROPH: No SCDs for now due to concern for PAD. Hold off on pharmacologic DVT prophylaxis due to postoperative from peptic ulcer and there is risk for bleeding. On pantoprazole drip as per above which will afford stress ulcer prophylaxis ACCESS: Peripheral IV providing adequate access at this time Overall impression: Patient is critically ill and hemodynamically unstable, with high risk for further decompensation. He is still requiring emergent treatment for severe hyperkalemia and severe sepsis without which treatment he would . Critical Care 65 mins Kyler Talley MD Jun 06, 2017 18:00
[2017-06-06] MEDS: VANCOMYCIN INJ 1,250 MG in SODIUM CHLOR 0.9% 250 ML INJ 250 ML IV SCH (18:19)
--- NOTE | 2017-06-06 19:18 | ECHRPT ---
Indication: SHORTNESS OF BREATH CONCLUSIONS The left ventricular systolic function is severely reduced with an estimated ejection fraction in th e range of 30-35%. Moderately dilated left ventricle. There appears to be anterior and apical akinesis, with thinning of the oshea, most likely due to pre vious infarction. BP: 122 / 62 HR: 88 Rhythm: Sinus MEASUREMENTS (Male / Female) Normal Values Technical Quality:Fair 2D ECHO LV Diastolic Diameter PLAX 6.7 cm 4.2 - 5.9 / 3.9 - 5.3 cm LV Systolic Diameter PLAX 6.0 cm IVS Diastolic Thickness 0.8 cm 0.6 - 1.0 / 0.6 - 0.9 cm LVPW Diastolic Thickness 0.8 cm 0.6 - 1.0 / 0.6 - 0.9 cm LV Relative Wall Thickness 0.2 RV Internal Dim ED PLAX 1.8 cm LVOT Diameter 2.1 cm Aortic Root Diameter 3.3 cm LA Systolic Diameter LX 4.0 cm 3.0 - 4.0 / 2.7 - 3.8 cm M-MODE AV Cusp Separation MM 2.1 cm DOPPLER AV Peak Velocity 132.0 cm/s AV Peak Gradient 7.0 mmHg AV Mean Gradient 3.0 mmHg AV Velocity Time Integral 20.5 cm LVOT Peak Velocity 111.0 cm/s LVOT Peak Gradient 4.9 mmHg LVOT Velocity Time Integral 18.0 cm AV Area Cont Eq vti 3.0 cm AV Area Cont Eq pk 2.9 cm Mitral E Point Velocity 85.9 cm/s Mitral A Point Velocity 44.9 cm/s Mitral E to A Ratio 1.9 LV E' Lateral Velocity 6.2 cm/s Mitral E to LV E' Lateral Ratio 13.8 LV E' Septal Velocity 7.3 cm/s Mitral E to LV E' Septal Ratio 11.8 PV Peak Velocity 87.2 cm/s PV Peak Gradient 3.0 mmHg FINDINGS LEFT VENTRICLE Moderately dilated left ventricle. Wall thickness is normal. The left ventricular systolic function is severely reduced with an estimated ejection fraction in th e range of 30-35%. There appears to be anterior and apical akinesis, with thinning of the oshea, most likely due to pre vious infarction. RIGHT VENTRICLE Normal right ventricular size and systolic function. LEFT ATRIUM The left atrial size is [id number] dilated. RIGHT ATRIUM The right atrial size is normal. ATRIAL SEPTUM No atrial level shunt is demonstrated by color flow Doppler interrogation. AORTA The aortic root and proximal ascending aorta are normal in size on limited imaging. MITRAL VALVE Structurally normal mitral valve. No mitral valve stenosis or regurgitation. AORTIC VALVE Aortic valve sclerosis is present. TRICUSPID VALVE Structurally normal tricuspid valve. No tricuspid valve stenosis or regurgitation. PULMONARY VALVE No pulmonary valve regurgitation or stenosis. VESSELS The inferior vena cava was not well visualized. PERICARDIUM No pericardial effusion. Jadiel Cruz DO (Electronically Signed) Final Date:06 June 2017 19:17
[2017-06-06 22:24] LABS: BICARBONATE 27.8 MEQ/L (21.0-32.0); CALCIUM 7.6 MG/DL (8.5-10.1); CREATININE 0.89 MG/DL (0.60-1.30)
[2017-06-06] MEDS: FLUCONAZOLE 400 MG PREMIX BAG 200 ML IV SCH (23:06)
[2017-06-07] VITALS (18 sets, daily range): BP systolic 108–145; BP diastolic 55–72; PULSE 74–132; RESP 16–29; TEMP 97.6–99.8; O2SAT 93–100
[2017-06-07] MEDS: PIPERACIL-TAZO 3.375 GM PREMIX 50 ML IV SCH ×4 (00:54→17:09)
[2017-06-07] MEDS: PROPOFOL 1000 MG/100 ML INJ 100 ML IV PRN ×3 (01:59→07:54)
[2017-06-07] MEDS: RESP: ALBUTEROL 2.5 MG/IPRATROPIUM 0.5 MG NEB (SCH) NEB ×4 (02:54→22:05)
[2017-06-07] MEDS: CHLORHEXIDINE GLUCONATE 2 % 1 PACK (2 CLOTHS) TOP SCH (04:00)
[2017-06-07] MEDS: METOPROLOL TARTRATE 5 MG/5 ML VIAL IV PUSH SCH ×4 (05:54→23:00)
[2017-06-07 06:02] LABS: AUTOMATED NEUTROPHIL # 13.3 TH/MM3 (1.8-7.7); BASOPHIL # 0.2 TH/MM3 (0-0.2); BASOPHIL % 1.2 % (0.0-2.0); EOSINOPHIL # 0.1 TH/MM3 (0-0.4); EOSINOPHIL % 0.3 % (0.0-4.0); HEMOGLOBIN 12.2 GM/DL (13.0-17.0); LYMPH % 7.9 % (9.0-44.0); LYMPHOCYTE # 1.3 TH/MM3 (1.0-4.8); MEAN CELL VOLUME 94.8 FL (80.0-100.0); MEAN CORPUSCULAR HGB CONC 33.8 % (32.0-36.0); MEAN PLATELET VOLUME 9.4 FL (7.0-11.0); MONO % 6.7 % (0.0-8.0); MONOCYTE # 1.1 TH/MM3 (0-0.9); NEUT % 83.9 % (16.0-70.0); PLATELET COUNT 331 TH/MM3 (150-450); RED CELL DISTRIBUTION WIDTH 14.7 % (11.6-17.2); WHITE BLOOD COUNT 15.9 TH/MM3 (4.0-11.0)
[2017-06-07 06:30] LABS: ALBUMIN 1.1 GM/DL (3.4-5.0); AST (GOT) 89 U/L (15-37); BICARBONATE 29.3 MEQ/L (21.0-32.0); BLOOD UREA NITROGEN 29 MG/DL (7-18); CALCIUM 7.6 MG/DL (8.5-10.1); CHLORIDE 103 MEQ/L (98-107); CREATININE 0.85 MG/DL (0.60-1.30); GLOMERULAR FILTRATION RATE 91 ML/MIN (>89); GLUCOSE,RANDOM 97 MG/DL (74-106); SODIUM (NA) 140 MEQ/L (136-145)
[2017-06-07 06:31] LABS: ALT (GPT) 80 U/L (12-78)
[2017-06-07 06:33] LABS: ALKALINE PHOSPHATASE 179 U/L (45-117); TOTAL BILIRUBIN ADULT 2.4 MG/DL (0.2-1.0); TOTAL PROTEIN 5.8 GM/DL (6.4-8.2)
[2017-06-07 07:00] LABS: BANDS 6 % (0-6); LYMPHOCYTES 3 % (9-44); MONOCYTES 3 % (0-8); NEUTROPHIL # MANUAL DIFF 14.9 TH/MM3 (1.8-7.7); POLYS (SEG NEUTROPHILS) 88 % (16-70)
[2017-06-07] MEDS: VANCOMYCIN INJ 1,250 MG in SODIUM CHLOR 0.9% 250 ML INJ 250 ML IV SCH ×2 (07:02→18:54)
[2017-06-07] MEDS: PANTOPRAZOLE INJ 80 MG in SODIUM CHLORIDE 0.9% INJ 100 ML IV SCH (07:54)
[2017-06-07] MEDS: CHLORHEXIDINE 0.12% (ORAL KIT) 15 ML CUP MT SCH ×2 (07:54→20:00)
[2017-06-07] MEDS: DOCUSATE SODIUM 50 MG/SENNA 8.6 MG TAB PO SCH ×2 (07:54→20:47)
[2017-06-07] MEDS: SODIUM CHLORIDE 0.9% FLUSH 10 ML FLUSH IV FLUSH SCH ×2 (07:54→20:47)
[2017-06-07] MEDS: CLARITHROMYCIN 500 MG TAB OG-TUBE SCH ×2 (07:54→20:47)
--- NOTE | 2017-06-07 09:40 | MB ---
cc: Vijay Valle MD DATE: 06/06/2017 CHIEF COMPLAINT: Abdominal pain, acute abdomen and perforated viscus. HISTORY OF PRESENT ILLNESS: The patient is a 62-year-old male with multiple medical issues, who presents with acute onset of abdominal pain. He states the pain has been going on for approximately the last 2 weeks and gotten considerably worse within the last 24-48 hours. He states the pain is sharp, it is diffuse. It radiates through his whole abdomen. It is worse with movement, better with lying still. The patient states he cannot lie flat due to the significance of pain. He states that he has a history of significant back pain for which he has been undergoing steroid injections. Further, he has been taking ibuprofen multiple times a day for a very long time and he is also a smoker of a pack and half per day. He has a cardiac history of DC x 2 in the past. He presented to the emergency department with tachycardia, dysrhythmia and hypotension and appearance of septic shock. He had a CT scan evaluation showing free intra-abdominal air and concern for perforated viscus along with a leukocytosis and WBC of 22,000. Surgery was consulted for further evaluation. PAST MEDICAL HISTORY: Hypercholesteremia, hypertension, DC, coronary artery disease, peripheral vascular disease. PAST SURGICAL HISTORY: The patient denies any previous surgery. SOCIAL HISTORY: Denies ETOH. Positive smoking 1/2 pack per day. Denies IVDA. ALLERGIES: NO KNOWN DRUG ALLERGIES. MEDICATIONS: See EMR. FAMILY HISTORY: Denies hypertension or diabetes. REVIEW OF SYSTEMS: GENERAL: Tachycardia and hypotension. Positive fevers. HEENT: Denies eye pain, ear pain. NECK: Denies pain. LUNGS: Some dyspnea. Denies chest pain. ABDOMEN: Complains of nausea, abdominal pain. Denies vomiting. CARDIOVASCULAR: Complaint of palpitations and tachycardia. GENITOURINARY: Denies dysuria, hematuria. ENDOCRINE: Denies polyuria or polydipsia. NEUROLOGIC: Denies numbness or tingling. PSYCHIATRIC: Denies change in mood or sensorium. PHYSICAL EXAMINATION: GENERAL: The patient in moderate distress. VITAL SIGNS: Temperature 98.2, pulse 160, respirations 36, blood pressure 138/69, saturation 95%. HEENT: Pupils equal, round, reactive. NECK: Supple. Trachea midline. LUNGS: Bilateral expansion, clear. HEART: S1, S2, irregularly irregular, tachycardic. ABDOMEN: Distended, peritoneal guarding with rigidity, acute abdomen. EXTREMITIES: Warm. Left lower extremity hallux with discoloration. Anterior leg ulcers noted. NEUROLOGIC: Intermittently answering questions, 5/5 motor strength in all extremities. PSYCHIATRIC: Appropriate mood, appropriate affect, anxiety. LABORATORY AND DIAGNOSTIC DATA: WBC 20.1, hemoglobin 16.6, hematocrit 49.2, platelets 381. Sodium 135, potassium 7.3, chloride 99, BUN 79, creatinine 1.9, glucose 114, calcium 9.1, AST 39, ALT 53, TNI 0.2, lipase 144. INR 1.3. IMAGING: CT reviewed by myself, showing pelvic free fluid along with intraperitoneal free air, concern for perforated viscus. ASSESSMENT: The patient is a 62-year-old male with multiple medical issues, presents with acute surgical abdomen, peritoneal signs and concern for perforated viscus, likely gastric perforation. PLAN: After full clinical radiologic and laboratory workup, the patient with above main issues, at this point, recommend continued resuscitation, IV fluids. Recommend heart rate control, IV antibiotics, antifungals. Will prophylactically start Protonix drip. My concern is that the patient likely has a gastric ulcer as he has significant risk factors for this. Also, further, my concern is that he has a perforation of this and we will take the patient emergently to the OR for exploration, diagnostic laparoscopy, possible exploratory laparotomy and washout. Discussed with the patient in detail. I also discussed with the patient's children. Discussed further of the severity of the situation given multiple comorbidities and acute presentation of this illness. The patient will need ICU, ISC management and will likely be on ventilator support postoperative. MD JOHNNY Khanna/NAREN , 09:52 PM , 10:23 PM
--- NOTE | 2017-06-07 11:48 | MP ---
cc: Vijay Valle MD DATE OF OPERATION: 06/06/2017 PREOPERATIVE DIAGNOSES: Septic shock, acute abdomen and perforated viscus. POSTOPERATIVE DIAGNOSES: Septic shock, acute abdomen perforated viscus, large anterior perforated gastric ulcer. PROCEDURE PERFORMED: 1. Diagnostic laparoscopy. 2. Laparoscopic repair of perforated gastric ulcer using modified Silverio patch. 3. Laparoscopic washout. ANESTHESIA: GETA. IV FLUIDS: 2300 mL. ESTIMATED BLOOD LOSS: 20 mL. DRAINS: A 19-Divehi Garrett right mid-quadrant, placement over ulcer right lateral quadrant, placement in pelvis SPECIMENS: None. COMPLICATIONS: None. WOUND CLASSIFICATION: Contaminated. INDICATION: The patient is a 62-year-old male who presents with acute onset of abdominal pain, peritoneal signs. CT finding of free air, perforated viscus. The patient in septic shock, therefore decision was made for emergent operative intervention. DETAILS OF PROCEDURE: The patient was taken to the operating suite, placed in supine position. He was prepped and draped in the usual sterile fashion after induction of general endotracheal anesthesia. A brief timeout was done stating the correct patient, procedure, and surgical site. We were all in agreement with this. Attention first was directed to the umbilicus where local anesthetic was injected. A small stab wolf incision was made with an 11 blade. The Visiport Opti-Port 5 mm scope was used to enter the abdomen safely. On cursory inspection, no evidence of injury. Abdomen insufflated to 15 mm pneumoperitoneum. On inspection, there was noted to be a significant burden of contaminated fluid and purulent drainage, especially loculated within the pelvis and had multiple adhesions of the bowel due to the gross contamination. Several other trocars were placed, including a right upper quadrant lateral 5 mm trocar for elevation of the liver and a right mid-quadrant 5 mm trocar for a working port and then a 12 mm right lower quadrant port. The patient was placed in reverse Trendelenburg and exploration begun. The most omentum was noted to be somewhat caked over at the proximal portion of the abdomen. This was slowly dissected down in order to expose the liver that had a black necrotic area. The liver was retracted with a Betty-Flex liver retractor and adhesions were taken down in order to facilitate entrance into the anterior portion of the stomach. The distal anterior portion of the stomach noted with a very large ulcer that showed exposed mucosa. Suction irrigation was used in order to somewhat mobilize this and again adhesions were lysed in order to fully mobilize and displayed the ulcer in its entirety. Also it had somewhat friable edges. At this point, further exploration of the abdomen did not note any issue with the colon or small bowel and attention was then redirected to the ulcer. The ulcer was reapproximated with a 2-0 Vicryl Endosutures in interrupted fashion. Long tails were left in order to facilitate placement of a Silverio patch omentum. The omentum of tongue was dissected free and placed anterior to the ulcer repair and secured snugly anterior to the repair with the long tailed sutures. Suction irrigation done with 6 liters of normal saline until effluent was somewhat clear. No evidence of further abnormality was noted. NG tube was advanced and actually advanced prior to repair of ulcer, passed the ulcer and secured in place by anesthesia. After a full washout was complete and exploration was finished, two drains were placed, a 19-Divehi in the right lateral quadrant was placed in pelvis in order for full drainage and then another 19-Divehi was placed through the right mid-quadrant trocar site and placed across the ulcer and omental repair. The patient tolerated the procedure well. The patient was noted to be somewhat hypotensive and very tachycardic with the atrial fibrillation dysrhythmia improving toward the end of the case. Pneumoperitoneum was removed. The drains were secured in place with 2-0 nylon sutures. A 12 mm was closed with a 0 Vicryl and piper were used to loosely approximate the incision sites. The patient remained intubated and taken in critical condition to ICU. All lap and instrument counts were correct at the end of the procedure. MD JOHNNY Khanna/LESTER , 11:02 AM , 11:47 AM
--- NOTE | 2017-06-07 12:06 | HHI.NPPN ---
Subjective History of Present Illness Patient apparently has a history of hypertension and he did indicate that he was using an NSAID at home for analgesia. From the records in the EMR patient was experiencing abdominal pain for about 2 weeks. Subsequently presented to the emergency room was noted to have evidence of acute renal insufficiency with a creatinine 1.90 and a potassium initially of 7.3. There is also evidence of metabolic acidosis. CT scan done with contrast revealed free air and the patient subsequently underwent laparoscopic repair of gastric ulcer with using a Silverio patch early this a.m. Patient has also received a Kayexalate enema earlier this morning. Potassium level now 6.4 and creatinine has returned to normal range at time of consultation 1.09. Urine output appears to be fair. Interval History Pt extubated. UOP good NG tube present. NO complaints except that he is thirsty and would like water. Objective Data Data 06/07/17 06/08/17 19:00 07:00 Intake Total 462 ml Balance 462 ml IV Total 462 ml Vital Signs Date Time Temp Pulse Resp B/P (MAP) Pulse Ox O2 Delivery O2 Flow Rate FiO2 06/07/17 10:00 88 06/07/17 09:08 98 Nasal Cannula 4 06/07/17 09:08 98 Nasal Cannula 4.00 06/07/17 08:57 Nasal Cannula 40 06/07/17 08:57 100 40 06/07/17 08:00 99.0 77 16 137/62 (87) 97 135/55 (81) 06/07/17 08:00 80 06/07/17 08:00 40 06/07/17 07:00 Mechanical Ventilator 40 06/07/17 06:00 91 06/07/17 04:15 100 40 06/07/17 04:00 99.8 80 18 137/63 (87) 96 06/07/17 04:00 80 06/07/17 04:00 40 06/07/17 02:00 75 06/07/17 00:35 98 40 06/07/17 00:00 40 06/07/17 00:00 74 06/07/17 00:00 98.8 74 16 118/58 (78) 98 06/06/17 22:00 82 06/06/17 21:54 98 40 06/06/17 20:00 98.3 78 18 129/60 (83) 96 06/06/17 20:00 81 06/06/17 20:00 40 06/06/17 19:00 Mechanical Ventilator 40 06/06/17 16:00 99.1 76 16 107/57 (74) 100 116/47 (70) 06/06/17 15:57 100 40 06/06/17 15:00 78 -: 06/07/17 0550 06/07/17 0550 Microbiology 06/06/17 Gram Stain - Final, Resulted 06/06/17 Sputum Culture, Resulted Pending Imaging Last Impressions Chest X-Ray 06/06/17 0000 Signed Impressions: Service Date/Time: Tuesday, June 06, 2017 11:40 - CONCLUSION: Increasing parenchymal changes right base. Marcos Fierro MD FACR Chest CT 06/05/[id number] Signed Impressions: Service Date/Time: Monday, June 05, 2017 21:58 - CONCLUSION: 1. Bilateral atelectasis. 2. 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 3. No aneurysm or dissection of the thoracic aorta. Paul Palencia MD Abdomen/Pelvis CT 06/05/172010 Signed Impressions: Service Date/Time: Monday, June 05, 2017 21:58 - CONCLUSION: 1. Free intraperitoneal air and fluid. The source is not fluid identified. 2. Bibasilar is a consolidation or atelectasis at the lung bases. 3. Small right renal calcifications which may represent nonobstructing renal stones. Paul Bernal MD Medication Review Current Medications Medications (Trade) Dose Ordered Sig/Vincent Route Start Time Stop Time Status Last Admin Fluconazole/ Sodium Chloride 200 ml @ 100 mls/hr Q24H IV 06/05/17 23:30 06/06/17 23:06 Pantoprazole Sodium 80 mg/ Sodium Chloride 100 ml @ 10 mls/hr CONTINUOUS IV 06/06/17 01:00 06/07/17 07:54 Piperacillin Sod/ Tazobactam Sod 50 ml @ 100 mls/hr Q6H IV 06/06/17 06:00 06/07/17 05:53 Pharmacy Profile Note 0 ml @ 0 mls/hr UNSCH OTHER 06/06/17 04:30 (Lopressor Inj) 5 mg Q6H IV PUSH 06/06/17 05:00 06/07/17 05:54 (Peridex 0.12% Liq) 15 ml BID@08,20 MT 06/06/17 08:00 06/07/17 07:54 Propofol 100 ml @ 2.865 mls/ hr TITRATE PRN IV 06/06/17 04:45 06/07/17 07:54 (NS Flush) 2 ml UNSCH PRN IV FLUSH 06/06/17 07:00 (NS Flush) 2 ml BID IV FLUSH 06/06/17 09:00 06/07/17 07:54 (Tylenol) 650 mg Q6H PRN PO 06/06/17 07:00 (fentaNYL INJ) 50 mcg Q1H PRN IV PUSH 06/06/17 07:00 (Zofran Inj) 4 mg Q6H PRN IV PUSH 06/06/17 07:00 (Albuterol Neb) 2.5 mg Q2HR NEB PRN INH 06/06/17 07:00 Miscellaneous Information 1 Q361D XX 06/06/17 07:00 06/06/17 08:20 (Chlorhexidine 2% Cloth) 3 pack Taper DAILY@04 TOP 06/07/17 04:00 06/03/18 03:59 06/07/17 04:00 (Chlorhexidine 2% Cloth) 3 pack UNSCH PRN TOP 06/06/17 07:00 (Liz-Colace) 1 tab BID PO 06/06/17 09:00 06/06/17 21:00 (Milk Of Magnesia Liq) 30 ml Q12H PRN PO 06/06/17 07:00 (Senokot) 17.2 mg Q12H PRN PO 06/06/17 07:00 (Dulcolax Supp) 10 mg DAILY PRN RECTAL 06/06/17 07:00 (Lactulose Liq) 30 ml DAILY PRN PO 06/06/17 07:00 Sodium Chloride 1,000 ml @ 42 mls/hr [id number] IV 06/06/17 08:15 06/06/17 16:36 Vancomycin HCl 1250 mg/Sodium Chloride 262.5 ml @ 250 mls/hr Q12H IV 06/06/17 18:00 06/07/17 07:02 Miscellaneous Information SPECIFIC LAB TO BE SOBIA... ONCE ONCE .XX 06/07/17 17:45 06/07/17 17:46 (Duoneb Neb) 1 ampule Q6HR NEB NEB 06/06/17 16:00 06/07/17 09:01 (Biaxin) 500 mg BID OG-TUBE 06/06/17 16:30 06/06/17 23:42 Physical Exam General Appearance: No Acute Distress Neck Neck Exam: Neck Supple, Trachea Midline Pulmonary Resp Exam: Clear Bilaterally, Breath Sounds Equal Cardiology CV Exam: Regular, Normal Sinus Rhythm Gastrointestinal/Abdomen GI Exam: Soft Extremeties Extremities Exam: Moderate Edema (2+ generalized edema) Neurologic Neuro Exam: Alert, Awake Assessment/Plan Problem List: (1) Acute renal failure ICD Codes: N17.9 - Acute kidney failure, unspecified Status: Acute Plan: Primarily secondary to intravascular volume depletion, usage of an NSAID prior to admission and possible sepsis syndrome. Creatinine level has improved significantly with IV hydration. Renal functions now within normal range UOP brisk. Medications should be adjusted for the patient's estimated GFR if clinically indicated. Avoid agents with significant potential for nephrotoxicity possible including NSAIDs for analgesia, iodine contrast agents. Gadolinium is contraindicated if the GFR is below 30. Will see the patient PRN. Please call if needed. (2) Hyperkalemia ICD Codes: E87.5 - Hyperkalemia Status: Acute Plan: Resolved. Likely 2/2 to ARF with NSAID use at home. (3) Metabolic acidosis ICD Codes: E87.2 - Acidosis Status: Resolved Plan: Most likely related to acute renal insufficiency and sepsis syndrome. Improved. Problem Qualifiers (1) Acute renal failure: Qualified Codes: N17.9 - Acute kidney failure, unspecified Alaina Prado Jun 07, 2017 12:06
--- NOTE | 2017-06-07 12:19 | RADRPT ---
EXAM DATE/TIME: 06/06/2017 00:00 [place] COMPARISON: No previous studies available for comparison. INDICATIONS : Peripheral Artery Disease TECHNIQUE: Four-cuff ankle and brachial pressures were obtained. Pulse cuff waveform tracings of the ankles were recorded, and ankle-brachial indices were calculated. PRESSURES (mmHg): Brachial (arm): Right 123 Left IV SITE Ankle: Right 96 Left 97 ALEJANDRA: Right 0.78 Left 0.79 TBI: Right 0.77 Left 0.77 PULSED CUFF WAVEFORMS: There is some amplitude blunting of the toe waveform on the left. Minimal amplitude blunting of the a nkle waveform on the right. CONCLUSION: Slightly diminished ABIs bilaterally characteristic of mild PAD Rosales Combs MD on June 07, 2017 at 12:03 Board Certified Radiologist. This report was verified electronically.
--- NOTE | 2017-06-07 13:17 | HHI.CCPN ---
Subjective Remarks/Hospital Course 62 year old male who presented to [facility] emergency department with 2 week history of abdominal pain. He had acute abdomen on presentation. He underwent CT abdomen and pelvis that demonstrated free air and free fluid. General surgery was consulted and he was taken emergently to the operating room. He also presented with acute kidney injury and potassium of 7.3 and I ordered medical management with calcium, bicarb, insulin, dextrose prior to going to OR. Dr. Valle states patient had a large perforated gastric ulcer for which he performed laparoscopic primary repair. Patient will be transitioned to [facility] and [facility] is consulted for postoperative critical care management. 06/06 1700 hours: Continual resuscitative efforts throughout the day, complicated by excessive fluid requirements and persistent hyperkalemia. Ongoing manipulations with bicarb, glucose, insulin, kayexalate, and calcium to control potassium levels. Punctate blue spots on feet appear embolic, cause of superficial ulcerations on calves less clear. Remains ventilator dependent. Hemodynamics still unstable. 06/07: Improved respiratory effort today. Will attempt weaning trials. Urine output remains adequate and hyperkalemia has finally resolved. Will leave nasogastric tube to low suction. Objective Vital Signs Date Time Temp Pulse Resp B/P (MAP) Pulse Ox O2 Delivery O2 Flow Rate FiO2 06/07/17 10:00 88 06/07/17 09:08 98 Nasal Cannula 4 06/07/17 08:57 40 06/07/17 08:00 99.0 16 137/62 (87) 135/55 (81) Intake and Output 06/07/17 06/07/17 06/08/17 08:00 16:00 00:00 Intake Total 200 ml 262 ml Output Total 1115 ml Balance -915 ml 262 ml Result Diagram: 06/07/17 0550 06/07/17 0550 Objective Remarks GENERAL: Chronically ill-appearing male. SKIN: Warm and dry. HEAD: Atraumatic. Normocephalic. EYES: Pupils equal and round, 2 mm and reactive bilaterally. No scleral icterus. ENT: No nasal bleeding or discharge. Mucous membranes pink and moist. NECK: Trachea midline. Orally intubated. CARDIOVASCULAR: Irregularly irregular, neck veins flat. No murmurs rubs or gallops appreciated. RESPIRATORY: Orotracheally intubated. Clear bilateral breath sounds. Good air movement. GASTROINTESTINAL: Abdomen protuberant and distended. Bowel sounds absent. GLENN drain 2. The right lateral drain is in the pelvis and the middle drain is near the ulcer closure. MUSCULOSKELETAL: Extremities without clubbing, cyanosis. There is 2+ bipedal edema. There are blisters over the dorsum of his left lower extremity that appears to be filled with serous and slightly hemorrhagic fluid. There is soft eschar overlying the lateral aspect of the left lower leg and just above the left lateral malleolus. Some erythema and warmth overlying lateral malleolus. No fluctuance or drainage. The soles of bilateral feet have embolic lesions. First toe on the left is discolored. Dopplerable pulses are present DP and posterior tibial arteries bilaterally. Feet are warm, edematous, and well perfused. NEUROLOGICAL: Nods head to questions appropriately. Moves 4 limbs to command. A/P Assessment and Plan NEURO: Propofol for sedation Target RASS -2 Fentanyl as needed for pain Daily sedation vacation RESP: Acute postoperative respiratory failure COPD Emphysema Obstructive sleep apnea Obtain chest x-ray post intubation. PRVC. Ventilator bundle. CT chest bibasilar atelectasis DuoNeb every 6 hours. Albuterol every 2 hours awake. Spontaneous breathing trial Chest x-ray satisfactory endotracheal tube position. Right basilar pneumonia/ consolidation. CV: Coronary artery disease Dilated ischemic cardiomyopathy, EF 30% Prior myocardial infarction Hypertension Hyperlipidemia Atrial fibrillation with RVR Given metoprolol 5 mg IV and was then in sinus rhythm with rate in the 70s-80s. Will continue metoprolol 5 mg IV every 6 hours with hold orders based on heart rate and blood pressure. Received 2 L of crystalloid in the ED, 2300 of crystalloid in the OR. 0.9 NaCl at 125 mL/h. EKG sinus tach with ?inferior ST elevation, normalized on subsequent EKG. ?2ry to hyperkalemia. Troponin negative, will trend. Ongoing fluid demands. Probable PAD Embolic phenomenon bilateral feet. No AAA. Will obtain Echo, ALEJANDRA. Has paroxysmal atrial fibrillation but not candidate for full dose anticoagulation at this time due to post op large peptic ulcer repair and risk for bleeding. ABIs close to normal for his age. Source of possible embolic debris in the lower extremities remains unclear. GI: Perforated peptic ulcer now status post laparoscopic primary repair by Dr. Valle 06/06/17 Treat for H pylori with clarithromycin/amoxicillin/PPI 14 days (presently on Zosyn postoperatively) Pantoprazole drip running. FEN/RENAL: Acute hyperkalemia Acute kidney injury Dunbar in place. Monitor intake and output. Hyperkalemia medically managed with calcium gluconate 2 g IV, bicarb 100 mg IV, dextrose 50 g IV, regular insulin 10 units IV. Potassium down trended initially then back up to 6.9 postoperatively. Treated medically again with the same treatment and Kayexalate. Continue fluids as per above. Discontinue bicarb gtt ID: Severe sepsis Left lower leg cellulitis Empiric treatment was initiated for perforated viscus including Zosyn, Diflucan. Also vancomycin (particularly in view of skin lesions/cellulitis). Follow-up blood culture. Short course of empiric antibiotic and then transition to therapy for H. pylori for 14 days (clarithromycin, amoxicillin) UA negative Chest x-ray with increasing right lower lobe opacity. Send sputum culture. HEME: Monitor CBC ENDO: Euglycemic. PROPH: No SCDs for now due to concern for PAD. Hold off on pharmacologic DVT prophylaxis due to postoperative from peptic ulcer and there is risk for bleeding. On pantoprazole drip as per above which will afford stress ulcer prophylaxis ACCESS: Peripheral IV providing adequate access at this time Overall impression: Patient remains critically ill and hemodynamically unstable , with high risk for further decompensation owing to poor left ventricular function. Critical Care 35 mins Kyler Talley MD Jun 07, 2017 13:17
--- NOTE | 2017-06-07 14:03 | HHI.PR ---
Subjective Subjective Notes Extubated Wants something to drink Wants more mouth swabs Objective Vitals/I&O Vital Signs Date Time Temp Pulse Resp B/P (MAP) Pulse Ox O2 Delivery O2 Flow Rate FiO2 06/07/17 13:00 88 06/07/17 12:00 98.2 25 108/62 (77) 93 Arterial Line 06/07/17 09:08 Nasal Cannula 4 06/07/17 08:57 40 Labs Laboratory Tests Test 06/06/17 16:15 06/06/17 21:18 06/07/17 05:50 Troponin I LESS THAN 0.02 Blood Urea Nitrogen 36 29 Creatinine 0.89 0.85 Random Glucose 92 97 Calcium Level 7.6 7.6 Sodium Level 140 140 Potassium Level 5.0 4.8 Chloride Level 104 103 Carbon Dioxide Level 27.8 29.3 Anion Gap 8 8 Estimat Glomerular Filtration Rate 87 91 White Blood Count 15.9 Red Blood Count 3.80 Hemoglobin 12.2 Hematocrit 36.0 Mean Corpuscular Volume 94.8 Mean Corpuscular Hemoglobin 32.0 Mean Corpuscular Hemoglobin Concent 33.8 Red Cell Distribution Width 14.7 Platelet Count 331 Mean Platelet Volume 9.4 Neutrophils (%) (Auto) 83.9 Lymphocytes (%) (Auto) 7.9 Monocytes (%) (Auto) 6.7 Eosinophils (%) (Auto) 0.3 Basophils (%) (Auto) 1.2 Neutrophils # (Auto) 13.3 Lymphocytes # (Auto) 1.3 Monocytes # (Auto) 1.1 Eosinophils # (Auto) 0.1 Basophils # (Auto) 0.2 CBC Comment AUTO DIFF Differential Total Cells Counted 100 Neutrophils % (Manual) 88 Band Neutrophils % 6 Lymphocytes % 3 Monocytes % 3 Neutrophils # (Manual) 14.9 Differential Comment FINAL DIFF MANUAL Platelet Estimate NORMAL Platelet Morphology Comment ENLARGED Total Protein 5.8 Albumin 1.1 Alkaline Phosphatase 179 Aspartate Amino Transf (AST/SGOT) 89 Alanine Aminotransferase (ALT/SGPT) 80 Total Bilirubin 2.4 Date/Time Source Procedure Growth Status 06/05/17 21:45 Blood Peripheral Aerobic Blood Culture - Preliminary NO GROWTH IN 2 DAYS Resulted 06/05/17 21:45 Blood Peripheral Anaerobic Blood Culture - Preliminary NO GROWTH IN 2 DAYS Resulted 06/06/17 13:00 Sputum Endotracheal Gram Stain - Final Resulted 06/06/17 13:00 Sputum Endotracheal Sputum Culture - Preliminary HEAVY GROWTH NORMAL RESPIRATORY LE... Resulted Cardiovascular: Regular Lungs: Clear Abdomen: Other (lap sites c/d/i; JP1 with serous drainage; JP2 with cloudy serous fluid ) Extremities: Other (see below ) Narrative Exam LEFT calf--- chronic appearing wound 2+ pitting edema in BLE; small dark spots on planter surface of foot A/P Assessment and Plan 62 year old male POD2 dx lap, lap modified marcos patch, washout for perforated viscus/large anterior gastric ulcer -Extubated now -Continue Zosyn/Diflucan -Continue coverage for H. Pylori -Monitor electrolytes; K better today -NPO -NGT to LIWS -Routine SO care Attending Statement patient seen at bedside stable extubated continue ppi gtt, abx wound care so sxn Attestation The exam, history, and the medical decision-making described in the above note were completed with the assistance of the mid-level provider. I reviewed and agree with the findings presented. I attest that I had a [id number] encounter with the patient on the same day, and personally performed and documented my assessment and findings in the medical record. Lana Otero/First Henny KING Jun 07, 2017 14:03 Vijay Valle MD Jun 16, 2017 20:44
--- NOTE | 2017-06-07 15:34 | EKG ---
Date Performed: 06/06/2017 Time Performed: 13:54:45 PTAGE: 62 years EKG: Sinus rhythm WITH SINUS ARRHYTHMIA PROBABLE INFERIOR MYOCARDIAL INFARCTION , PROBABLY OLD ANTEROLATERAL MYOCARDIA L INFARCTION , OF INDETERMINATE AGE ABNORMAL ECG Since the PREVIOUS TRACING , no significant change noted PREVIOUS TRACIN06/06/2017 04.31 DOCTOR: Jose Berry Interpretating Date/Time 06/07/2017 15:23:58
[2017-06-07] MEDS ORDERED: MORPHINE SULFATE 4 MG/ML INJ ONE (17:03)
[2017-06-07] MEDS ORDERED: MORPHINE SULFATE 4 MG/ML INJ IV PUSH PRN (17:15)
[2017-06-07] MEDS ORDERED: PHARMACY ORDERED LAB ONE (17:45)
[2017-06-07] MEDS ORDERED: AMIODARONE INJ 150 MG in DEXTROSE 5% IN WATER 100ML INJ 100 ML IV ONE ×2 (18:12)
[2017-06-07 18:43] LABS: BICARBONATE 24.2 MEQ/L (21.0-32.0); CALCIUM 7.6 MG/DL (8.5-10.1); CREATININE 0.95 MG/DL (0.60-1.30); VANCOMYCIN TROUGH 13.7 MCG/ML (5.0-10.0)
[2017-06-07] MEDS ORDERED: SODIUM BICARBONATE 8.4% INJ 50 MEQ/50 ML SYR ONE ×2 (19:15→19:26)
[2017-06-07] MEDS ORDERED: DEXTROSE 50% IN WATER 50 ML SYRINGE ONE (19:16)
[2017-06-07] MEDS ORDERED: RESP: ALBUTEROL 2.5 MG/3 ML NEB (SCH) NEB ONE (19:45)
[2017-06-07] MEDS ORDERED: DEXTROSE 50% IN WATER 50 ML VIAL(D50) IV PUSH ONE (19:45)
[2017-06-07] MEDS ORDERED: SODIUM BICARBONATE 8.4% SOLN 50 MEQ/50 ML VIAL SLOW IVP ONE (19:45)
[2017-06-07] MEDS ORDERED: INSULIN HUMAN REGULAR 1,000 UNITS/10 ML VIAL IV PUSH ONE (19:45)
[2017-06-07] MEDS ORDERED: CALCIUM GLUCONATE 10% 1 GM/10 ML VIAL SLOW IVP ONE (19:45)
[2017-06-07] MEDS: MORPHINE SULFATE 4 MG/ML INJ IV PUSH PRN (20:59)
[2017-06-07] MEDS ORDERED: DIGOXIN 0.5 MG/2 ML VIAL IV PUSH ONE (22:00)
[2017-06-08] VITALS (12 sets, daily range): BP systolic 122–149; BP diastolic 59–84; PULSE 68–122; RESP 18–24; TEMP 97.5–99.2; O2SAT 92–98
[2017-06-08] MEDS: MORPHINE SULFATE 4 MG/ML INJ IV PUSH PRN ×7 (00:28→23:09)
[2017-06-08] MEDS: PIPERACIL-TAZO 3.375 GM PREMIX 50 ML IV SCH ×5 (00:28→23:09)
[2017-06-08] MEDS: FLUCONAZOLE 400 MG PREMIX BAG 200 ML IV SCH ×2 (00:29→23:09)
[2017-06-08] MEDS: RESP: ALBUTEROL 2.5 MG/IPRATROPIUM 0.5 MG NEB (SCH) NEB ×4 (03:25→20:50)
[2017-06-08 03:27] LABS: AUTOMATED NEUTROPHIL # 12.2 TH/MM3 (1.8-7.7); BASOPHIL # 0.1 TH/MM3 (0-0.2); BASOPHIL % 0.6 % (0.0-2.0); EOSINOPHIL % 0.3 % (0.0-4.0); HEMATOCRIT 37.2 % (39.0-51.0); HEMOGLOBIN 12.2 GM/DL (13.0-17.0); LYMPH % 10.4 % (9.0-44.0); LYMPHOCYTE # 1.6 TH/MM3 (1.0-4.8); MEAN CELL VOLUME 95.9 FL (80.0-100.0); MEAN CORPUSCULAR HEMOGLOBIN 31.4 PG (27.0-34.0); MEAN CORPUSCULAR HGB CONC 32.7 % (32.0-36.0); MEAN PLATELET VOLUME 9.7 FL (7.0-11.0); MONO % 7.4 % (0.0-8.0); MONOCYTE # 1.1 TH/MM3 (0-0.9); NEUT % 81.3 % (16.0-70.0); PLATELET COUNT 320 TH/MM3 (150-450); RED BLOOD COUNT 3.88 MIL/MM3 (4.50-5.90); RED CELL DISTRIBUTION WIDTH 14.5 % (11.6-17.2)
[2017-06-08] MEDS: CHLORHEXIDINE GLUCONATE 2 % 1 PACK (2 CLOTHS) TOP SCH (03:39)
[2017-06-08] MEDS: PANTOPRAZOLE INJ 80 MG in SODIUM CHLORIDE 0.9% INJ 100 ML IV SCH ×2 (03:40→15:36)
[2017-06-08] MEDS: AMIODARONE INJ 450 MG in SODIUM CHLOR 0.9% (EXCEL) INJ 241 ML IV PRN ×2 (03:40→15:36)
[2017-06-08] MEDS ORDERED: DIGOXIN 0.5 MG/2 ML VIAL IV PUSH SCH (04:00)
[2017-06-08 04:19] LABS: BICARBONATE 31.5 MEQ/L (21.0-32.0); CREATININE 0.82 MG/DL (0.60-1.30)
[2017-06-08 04:49] LABS: BANDS 2 % (0-6); LYMPHOCYTES 7 % (9-44); METAMYELOCYTES 1 % (0-1); MONOCYTES 5 % (0-8); MYELOCYTES 3 % (0-0); NEUTROPHIL # MANUAL DIFF 13.1 TH/MM3 (1.8-7.7); POLYS (SEG NEUTROPHILS) 81 % (16-70)
[2017-06-08] MEDS: METOPROLOL TARTRATE 5 MG/5 ML VIAL IV PUSH SCH ×4 (05:05→22:19)
[2017-06-08] MEDS ORDERED: VANCOMYCIN 1,500 MG/NS 500 ML IV SCH ×2 (07:00)
[2017-06-08] MEDS: SODIUM CHLOR 0.9% 1000 ML INJ 1,000 ML IV SCH (07:53)
[2017-06-08] MEDS: CHLORHEXIDINE 0.12% (ORAL KIT) 15 ML CUP MT SCH ×2 (08:00→20:00)
[2017-06-08] MEDS: SODIUM CHLORIDE 0.9% FLUSH 10 ML FLUSH IV FLUSH SCH ×2 (08:01→21:00)
[2017-06-08] MEDS: CLARITHROMYCIN 500 MG TAB OG-TUBE SCH (08:50)
[2017-06-08] MEDS: DOCUSATE SODIUM 50 MG/SENNA 8.6 MG TAB PO SCH ×2 (08:51→20:32)
--- NOTE | 2017-06-08 13:54 | HHI.PR ---
Subjective Subjective Notes Up to chair Went into a-fib with RVR yesterday evening and on Amiodarone drip Objective Vitals/I&O Vital Signs Date Time Temp Pulse Resp B/P (MAP) Pulse Ox O2 Delivery O2 Flow Rate FiO2 06/08/17 12:00 97.5 82 24 149/65 (93) 96 06/08/17 09:02 Nasal Cannula 6.00 06/07/17 08:57 40 Labs Laboratory Tests Test 06/07/17 17:48 06/07/17 23:21 06/08/17 03:16 Blood Urea Nitrogen 25 23 Creatinine 0.95 0.82 Random Glucose 88 84 Calcium Level 7.6 8.0 Sodium Level 135 142 Potassium Level 5.7 4.6 4.6 Chloride Level 103 105 Carbon Dioxide Level 24.2 31.5 Anion Gap 8 6 Estimat Glomerular Filtration Rate 80 95 Vancomycin Level Trough 13.7 White Blood Count 15.0 Red Blood Count 3.88 Hemoglobin 12.2 Hematocrit 37.2 Mean Corpuscular Volume 95.9 Mean Corpuscular Hemoglobin 31.4 Mean Corpuscular Hemoglobin Concent 32.7 Red Cell Distribution Width 14.5 Platelet Count 320 Mean Platelet Volume 9.7 Neutrophils (%) (Auto) 81.3 Lymphocytes (%) (Auto) 10.4 Monocytes (%) (Auto) 7.4 Eosinophils (%) (Auto) 0.3 Basophils (%) (Auto) 0.6 Neutrophils # (Auto) 12.2 Lymphocytes # (Auto) 1.6 Monocytes # (Auto) 1.1 Eosinophils # (Auto) 0.0 Basophils # (Auto) 0.1 CBC Comment AUTO DIFF Differential Total Cells Counted 100 Neutrophils % (Manual) 81 Band Neutrophils % 2 Lymphocytes % 7 Monocytes % 5 Eosinophils % 1 Neutrophils # (Manual) 13.1 Metamyelocytes 1 Myelocytes 3 Differential Comment FINAL DIFF MANUAL Platelet Estimate NORMAL Platelet Morphology Comment ENLARGED Lactic Acid Level 1.1 Date/Time Source Procedure Growth Status 06/05/17 21:45 Blood Peripheral Aerobic Blood Culture - Preliminary NO GROWTH IN 3 DAYS Resulted 06/05/17 21:45 Blood Peripheral Anaerobic Blood Culture - Preliminary NO GROWTH IN 3 DAYS Resulted 06/06/17 13:00 Sputum Endotracheal Gram Stain - Final Resulted 06/06/17 13:00 Sputum Culture - Preliminary Gram Negative Juan Antonio Resulted Cardiovascular: Regular Lungs: Clear Abdomen: Other (lap sites c/d/i; SO x2 both with serous fluid; NGT to LIWS ) Extremities: Other (see below ) Narrative Exam LEFT calf--- chronic appearing wound 2+ pitting edema in BLE; small dark spots on planter surface of foot A/P Assessment and Plan 62 year old male POD3 dx lap, lap modified marcos patch, washout for perforated viscus/large anterior gastric ulcer -A-fib with RVR---on Amiodarone -Stable on NC -Continue Zosyn/Diflucan -Continue coverage for H. Pylori -Monitor electrolytes -NPO -NGT to LIWS -Routine SO care -PT following Attending Statement patient seen at bedside a fib on amio gtt appears stable may benefit from cardio eval continue close isc mgnt so sxn dvt ppx Attestation The exam, history, and the medical decision-making described in the above note were completed with the assistance of the mid-level provider. I reviewed and agree with the findings presented. I attest that I had a [id number] encounter with the patient on the same day, and personally performed and documented my assessment and findings in the medical record. Lana Otero/First Henny KING Jun 08, 2017 13:54 Vijay Valle MD Jun 17, 2017 09:54
--- NOTE | 2017-06-08 14:32 | HHI.CCPN ---
Subjective Remarks/Hospital Course 62 year old male who presented to [facility] emergency department with 2 week history of abdominal pain. He had acute abdomen on presentation. He underwent CT abdomen and pelvis that demonstrated free air and free fluid. General surgery was consulted and he was taken emergently to the operating room. He also presented with acute kidney injury and potassium of 7.3 and I ordered medical management with calcium, bicarb, insulin, dextrose prior to going to OR. Dr. Valle states patient had a large perforated gastric ulcer for which he performed laparoscopic primary repair. Patient will be transitioned to [facility] and [facility] is consulted for postoperative critical care management. 06/06 1700 hours: Continual resuscitative efforts throughout the day, complicated by excessive fluid requirements and persistent hyperkalemia. Ongoing manipulations with bicarb, glucose, insulin, kayexalate, and calcium to control potassium levels. Punctate blue spots on feet appear embolic, cause of superficial ulcerations on calves less clear. Remains ventilator dependent. Hemodynamics still unstable. 06/07: Improved respiratory effort today. Will attempt weaning trials. Urine output remains adequate and hyperkalemia has finally resolved. Will leave nasogastric tube to low suction. 06/08: Extubated yesterday and breathing comfortably 24 hours later. Problems with hyperkalemia have resolved. Will throttle back on intravenous fluids given his poor ejection fraction. Will need to start diuretics shortly. Initiate unloading agents when rate is properly controlled and hypotension no longer problem. Objective Vital Signs Date Time Temp Pulse Resp B/P (MAP) Pulse Ox O2 Delivery O2 Flow Rate FiO2 06/08/17 12:00 97.5 82 24 149/65 (93) 96 06/08/17 09:02 Nasal Cannula 6.00 06/07/17 08:57 40 Intake and Output 06/08/17 06/08/17 06/08/17 07:59 15:59 23:59 Intake Total 1000 ml Output Total 1435 ml Balance -1435 ml 1000 ml Result Diagram: 06/08/1731506/08/17315 Objective Remarks GENERAL: Chronically ill-appearing male. SKIN: Warm and dry. HEAD: Atraumatic. Normocephalic. EYES: Pupils equal and round, 2 mm and reactive bilaterally. No scleral icterus. ENT: No nasal bleeding or discharge. Mucous membranes pink and moist. NECK: Trachea midline. Orally intubated. CARDIOVASCULAR: Irregularly irregular, neck veins flat. No murmurs rubs or gallops appreciated. RESPIRATORY: Orotracheally intubated. Clear bilateral breath sounds. Good air movement. GASTROINTESTINAL: Abdomen protuberant and distended. Bowel sounds absent. GLENN drain 2. The right lateral drain is in the pelvis and the middle drain is near the ulcer closure. MUSCULOSKELETAL: Extremities without clubbing, cyanosis. There is 2+ bipedal edema. There are blisters over the dorsum of his left lower extremity that appears to be filled with serous and slightly hemorrhagic fluid. There is soft eschar overlying the lateral aspect of the left lower leg and just above the left lateral malleolus. Some erythema and warmth overlying lateral malleolus. No fluctuance or drainage. The soles of bilateral feet have embolic lesions. First toe on the left is discolored. Dopplerable pulses are present DP and posterior tibial arteries bilaterally. Feet are warm, edematous, and well perfused. NEUROLOGICAL: Nods head to questions appropriately. Moves 4 limbs to command. A/P Assessment and Plan NEURO: d/c Propofol for sedation Target RASS 0 Fentanyl as needed for pain RESP: Acute postoperative respiratory failure COPD Emphysema Obstructive sleep apnea Obtain chest x-ray post intubation. PRVC. Ventilator bundle. CT chest bibasilar atelectasis DuoNeb every 6 hours. Albuterol every 2 hours awake. Spontaneous breathing trial Chest x-ray satisfactory endotracheal tube position. Right basilar pneumonia/ consolidation. CV: Coronary artery disease Dilated ischemic cardiomyopathy, EF 30% Prior myocardial infarction Hypertension Hyperlipidemia Atrial fibrillation with RVR Given metoprolol 5 mg IV and was then in sinus rhythm with rate in the 70s-80s. Will continue metoprolol 5 mg IV every 6 hours with hold orders based on heart rate and blood pressure. Received 2 L of crystalloid in the ED, 2300 of crystalloid in the OR. 0.9 NaCl at 125 mL/h. EKG sinus tach with ?inferior ST elevation, normalized on subsequent EKG. ?2ry to hyperkalemia. Troponin negative, will trend. Ongoing fluid demands. Probable PAD Embolic phenomenon bilateral feet. No AAA. Will obtain Echo, ALEJANDRA. Has paroxysmal atrial fibrillation but not candidate for full dose anticoagulation at this time due to post op large peptic ulcer repair and risk for bleeding. ABIs close to normal for his age. Source of possible embolic debris in the lower extremities remains unclear. GI: Perforated peptic ulcer now status post laparoscopic primary repair by Dr. Valle 06/06/17 Treat for H pylori with clarithromycin/amoxicillin/PPI 14 days (presently on Zosyn postoperatively) Pantoprazole drip running. FEN/RENAL: Acute hyperkalemia Acute kidney injury Dunbar in place. Monitor intake and output. Hyperkalemia medically managed with calcium gluconate 2 g IV, bicarb 100 mg IV, dextrose 50 g IV, regular insulin 10 units IV. Potassium down trended initially then back up to 6.9 postoperatively. Treated medically again with the same treatment and Kayexalate. Continue fluids as per above. Discontinue bicarb gtt Start diuretic shortly, fluid retention becoming a problem ID: Severe sepsis Left lower leg cellulitis Empiric treatment was initiated for perforated viscus including Zosyn, Diflucan. Also vancomycin (particularly in view of skin lesions/cellulitis). Follow-up blood culture. Short course of empiric antibiotic and then transition to therapy for H. pylori for 14 days (clarithromycin, amoxicillin) UA negative Chest x-ray with increasing right lower lobe opacity. Send sputum culture. HEME: Monitor CBC ENDO: Euglycemic. PROPH: No SCDs for now due to concern for PAD. On pantoprazole drip as per above which will afford stress ulcer prophylaxis, start chemical DVT prophylaxis any time ACCESS: Peripheral IV providing adequate access at this time Overall impression: Patient remains critically ill with high risk for further decompensation owing to poor left ventricular function. Kyler Talley MD Jun 08, 2017 14:32
[2017-06-08] MEDS: SODIUM CHLORIDE 0.9% FLUSH 10 ML FLUSH IV FLUSH PRN ×2 (22:20→23:36)
[2017-06-08] MEDS: ENOXAPARIN SODIUM 40 MG/0.4 ML SYRINGE SQ SCH (22:21)
[2017-06-08] MEDS: METOPROLOL TARTRATE 5 MG/5 ML VIAL IV PUSH PRN (23:36)
[2017-06-09] VITALS (14 sets, daily range): BP systolic 110–150; BP diastolic 58–76; PULSE 70–153; RESP 20–30; TEMP 97–99.6; O2SAT 89–92
[2017-06-09 01:29] LABS: ALBUMIN 1.3 GM/DL (3.4-5.0); CREATININE 0.74 MG/DL (0.60-1.30); TOTAL PROTEIN 6.6 GM/DL (6.4-8.2)
[2017-06-09 01:30] LABS: MAGNESIUM 2.3 MG/DL (1.5-2.5); PHOSPHORUS 3.4 MG/DL (2.5-4.9); TOTAL BILIRUBIN ADULT 1.8 MG/DL (0.2-1.0)
[2017-06-09 01:33] LABS: BICARBONATE 25.8 MEQ/L (21.0-32.0); TROPONIN I 0.18 NG/ML (0.02-0.05)
[2017-06-09 02:10] LABS: DIRECT BILIRUBIN ADULT 1.3 MG/DL (0.0-0.2); INDIRECT BILIRUBIN 0.5 MG/DL (0.0-0.8)
[2017-06-09] MEDS: CHLORHEXIDINE GLUCONATE 2 % 1 PACK (2 CLOTHS) TOP SCH (04:00)
[2017-06-09] MEDS: RESP: ALBUTEROL 2.5 MG/IPRATROPIUM 0.5 MG NEB (SCH) NEB ×5 (04:04→22:00)
[2017-06-09] MEDS: METOPROLOL TARTRATE 5 MG/5 ML VIAL IV PUSH SCH (04:21)
[2017-06-09] MEDS: MORPHINE SULFATE 4 MG/ML INJ IV PUSH PRN ×7 (04:21→22:44)
[2017-06-09] MEDS: SODIUM CHLORIDE 0.9% FLUSH 10 ML FLUSH IV FLUSH PRN ×2 (04:22→19:58)
[2017-06-09] MEDS: PIPERACIL-TAZO 3.375 GM PREMIX 50 ML IV SCH ×3 (05:56→16:58)
[2017-06-09 06:51] LABS: BICARBONATE 26.5 MEQ/L (21.0-32.0); CALCIUM 7.9 MG/DL (8.5-10.1); CREATININE 0.79 MG/DL (0.60-1.30)
[2017-06-09] MEDS: METOPROLOL TARTRATE 5 MG/5 ML VIAL IV PUSH PRN ×6 (07:33→22:42)
[2017-06-09] MEDS: PANTOPRAZOLE INJ 80 MG in SODIUM CHLORIDE 0.9% INJ 100 ML IV SCH ×3 (08:00→18:24)
--- NOTE | 2017-06-09 08:07 | HHI.CCPN ---
Subjective Remarks/Hospital Course 62 year old male who presented to [facility] emergency department with 2 week history of abdominal pain. He had acute abdomen on presentation. He underwent CT abdomen and pelvis that demonstrated free air and free fluid. General surgery was consulted and he was taken emergently to the operating room. He also presented with acute kidney injury and potassium of 7.3 and I ordered medical management with calcium, bicarb, insulin, dextrose prior to going to OR. Dr. Valle states patient had a large perforated gastric ulcer for which he performed laparoscopic primary repair. Patient will be transitioned to [facility] and [facility] is consulted for postoperative critical care management. 06/06 1700 hours: Continual resuscitative efforts throughout the day, complicated by excessive fluid requirements and persistent hyperkalemia. Ongoing manipulations with bicarb, glucose, insulin, kayexalate, and calcium to control potassium levels. Punctate blue spots on feet appear embolic, cause of superficial ulcerations on calves less clear. Remains ventilator dependent. Hemodynamics still unstable. 06/07: Improved respiratory effort today. Will attempt weaning trials. Urine output remains adequate and hyperkalemia has finally resolved. Will leave nasogastric tube to low suction. 06/08: Extubated yesterday and breathing comfortably 24 hours later. Problems with hyperkalemia have resolved. Will throttle back on intravenous fluids given his poor ejection fraction. Will need to start diuretics shortly. Initiate unloading agents when rate is properly controlled and hypotension no longer problem. 06/09: He continues to breathe with acceptable comfort following extubation 2 days ago. General congestion and mobile secretions have cleared considerably. He is retaining fluid and given his fairly pronounced left ventricular dysfunction it is time to start twice daily diuretics and try to get rid of some of this excess fluid he accumulated during his resuscitation from peritonitis. In view of his poor LV, paroxysmal atrial fibrillation, and embolic-looking dots on his heels we should probably ask cardiology service to see him now that he is extubated and probably survivable. Objective Vital Signs Date Time Temp Pulse Resp B/P (MAP) Pulse Ox O2 Delivery O2 Flow Rate FiO2 06/09/17 06:00 72 06/09/17 04:00 99.2 30 150/76 (100) 91 06/08/17 19:00 Nasal Cannula 5.00 06/07/17 08:57 40 Intake and Output 06/09/17 06/09/17 06/10/17 08:00 16:00 00:00 Output Total 720 ml Balance -720 ml Result Diagram: 06/08/17 0316 06/09/17 0501 Objective Remarks GENERAL: Chronically ill-appearing male. SKIN: Warm and dry. HEAD: Atraumatic. Normocephalic. EYES: Pupils equal and round, 2 mm and reactive bilaterally. No scleral icterus. ENT: No nasal bleeding or discharge. Mucous membranes pink and moist. NECK: Trachea midline. CARDIOVASCULAR: Normal sinus rhythm, no jugular venous distention. No murmurs rubs or gallops appreciated. RESPIRATORY: Clear bilateral breath sounds. Good air movement. GASTROINTESTINAL: Abdomen less distended. Bowel sounds absent. GLENN drain 2. The right lateral drain is in the pelvis and the middle drain is near the ulcer closure. MUSCULOSKELETAL: Extremities without clubbing, cyanosis. There is 2+ bipedal edema. There are blisters over the dorsum of his left lower extremity that appears to be filled with serous and slightly hemorrhagic fluid. There is soft eschar overlying the lateral aspect of the left lower leg and just above the left lateral malleolus. Some erythema and warmth overlying lateral malleolus. No fluctuance or drainage. The soles of bilateral feet have embolic lesions. First toe on the left is discolored. Dopplerable pulses are present DP and posterior tibial arteries bilaterally. Feet are warm, edematous, and well perfused. NEUROLOGICAL: Conversant, oriented, grumpy. Moves 4 limbs to command. A/P Assessment and Plan NEURO: d/c Propofol for sedation Target RASS 0 Fentanyl as needed for pain RESP: Acute postoperative respiratory failure COPD Emphysema Obstructive sleep apnea Obtain chest x-ray post intubation. [facility]. Ventilator bundle. CT chest bibasilar atelectasis DuoNeb every 6 hours. Albuterol every 2 hours awake. Spontaneous breathing trial Chest x-ray satisfactory endotracheal tube position. Right basilar pneumonia/ consolidation has resolved. Small bilateral pleural effusions will respond to diuretics. CV: Coronary artery disease Dilated ischemic cardiomyopathy, EF 30% Prior myocardial infarction Hypertension Hyperlipidemia Atrial fibrillation with RVR Given metoprolol 5 mg IV and was then in sinus rhythm with rate in the 70s-80s. Will continue metoprolol 5 mg IV every 6 hours with hold orders based on heart rate and blood pressure. Received 2 L of crystalloid in the ED, 2300 of crystalloid in the OR. 0.9 NaCl at 125 mL/h. EKG sinus tach with ?inferior ST elevation, normalized on subsequent EKG. ?2ry to hyperkalemia. Troponin negative, will trend. Ongoing fluid demands. Probable PAD Embolic phenomenon bilateral feet. No AAA. Will obtain Echo, ALEJANDRA. Has paroxysmal atrial fibrillation but not candidate for full dose anticoagulation at this time due to post op large peptic ulcer repair and risk for bleeding. ABIs close to normal for his age. Source of possible embolic debris in the lower extremities remains unclear, possibly paroxysmal atrial fibrillation. His episodes of atrial fibrillation at this point are not sustained. At most 10 minutes. Considering possible embolic debris in his feet it is probably best to consider long-term anticoagulation. GI: Perforated peptic ulcer now status post laparoscopic primary repair by Dr. Valle 06/06/17 Treat for H pylori with clarithromycin/amoxicillin/PPI 14 days (presently on Zosyn postoperatively) Pantoprazole drip running. FEN/RENAL: Acute hyperkalemia Acute kidney injury Dunbar in place. Monitor intake and output. Hyperkalemia medically managed with calcium gluconate 2 g IV, bicarb 100 mg IV, dextrose 50 g IV, regular insulin 10 units IV. Potassium down trended initially then back up to 6.9 postoperatively. Treated medically again with the same treatment and Kayexalate. Continue fluids as per above. Discontinue bicarb gtt Start diuretic twice daily ID: Severe sepsis Left lower leg cellulitis Empiric treatment was initiated for perforated viscus including Zosyn, Diflucan. Also vancomycin (particularly in view of skin lesions/cellulitis). Follow-up blood culture. Short course of empiric antibiotic and then transition to therapy for H. pylori for 14 days (clarithromycin, amoxicillin) UA negative Chest x-ray with increasing right lower lobe opacity. Send sputum culture. HEME: Monitor CBC ENDO: Euglycemic. PROPH: No SCDs for now due to concern for PAD. On pantoprazole drip as per above which will afford stress ulcer prophylaxis, start chemical DVT prophylaxis any time ACCESS: Peripheral IV providing adequate access at this time Overall impression: Patient remains ill with high risk for further decompensation owing to poor left ventricular function. So far he is progressing nicely. Despite multiple noninvasive studies we have not sorted out the source of the embolic-looking debris in his feet. Paroxysmal atrial fibrillation appears to be the most likely source. Atheromatous embolization from the diseased aorta is certainly another possibility. Kyler Talley MD Jun 09, 2017 08:07
[2017-06-09] MEDS: SODIUM CHLORIDE 0.9% FLUSH 10 ML FLUSH IV FLUSH SCH ×2 (09:24→20:21)
[2017-06-09] MEDS: AMIODARONE 200 MG TAB PO SCH ×2 (09:25→20:44)
[2017-06-09] MEDS: DOCUSATE SODIUM 50 MG/SENNA 8.6 MG TAB PO SCH ×2 (09:25→20:44)
[2017-06-09] MEDS: CARVEDILOL 6.25 MG TAB PO SCH ×2 (09:25→20:44)
[2017-06-09] MEDS: FUROSEMIDE 40 MG/4 ML VIAL IV PUSH SCH ×2 (09:26→16:58)
[2017-06-09] MEDS: CHLORHEXIDINE 0.12% (ORAL KIT) 15 ML CUP MT SCH ×2 (09:26→20:00)
[2017-06-09] MEDS ORDERED: DIATRIZOATE MEGLUM/DIATRIZOATE SOD 120 ML BTL (for RAD DIAG) NG ONE (11:10)
--- NOTE | 2017-06-09 11:46 | RADRPT ---
EXAM DATE/TIME: 06/09/2017 10:52 [place] COMPARISON: No previous studies available for comparison. INDICATIONS : Gastric peforation with ulcer FLUORO TIME: 2.4 minutes IMAGE COUNT: 13 CONTRAST: 1. MD Bowers MEDICAL HISTORY : Hypertension. Myocardial infarction SURGICAL HISTORY : Gastric ulcer repair ENCOUNTER: Initial ACUITY: 3 days PAIN SCORE: 0/10 LOCATION: Abdomen FINDINGS: Gastrografin was instilled into the stomach via an indwelling nasogastric tube. The nasogastric tube is kinked within the antrum of the stomach. Gastric wall is intact without evidence of leakage. There is no significant mucosal thickening. Unobs tructed flow into the duodenum is noted. CONCLUSION: No evidence of gastric leakage. Jv Barfield MD on June 09, 2017 at 11:42 Board Certified Radiologist. This report was verified electronically.
--- NOTE | 2017-06-09 15:36 | HHI.PR ---
Subjective Subjective Notes Resting in bed Just back from [facility] SAR[facility] Cruz at bedside---Heart rate in the 130-140s Objective Vitals/I&O Vital Signs Date Time Temp Pulse Resp B/P (MAP) Pulse Ox O2 Delivery O2 Flow Rate FiO2 06/09/17 08:20 92 Nasal Cannula 4.00 06/09/17 06:00 72 06/09/17 04:00 99.2 30 150/76 (100) 06/07/17 08:57 40 Labs Laboratory Tests Test 06/08/17 21:21 06/09/17 05:01 Blood Urea Nitrogen 18 19 Creatinine 0.74 0.79 Random Glucose 91 89 Total Protein 6.6 Albumin 1.3 Calcium Level 8.0 7.9 Phosphorus Level 3.4 Magnesium Level 2.3 Alkaline Phosphatase 166 Aspartate Amino Transf (AST/SGOT) 36 Alanine Aminotransferase (ALT/SGPT) 64 Total Bilirubin 1.8 Direct Bilirubin 1.3 Sodium Level 141 139 Potassium Level 4.8 4.8 Chloride Level 106 105 Carbon Dioxide Level 25.8 26.5 Anion Gap 9 8 Estimat Glomerular Filtration Rate 107 99 Indirect Bilirubin 0.5 Total Creatine Kinase 80 Troponin I 0.18 Amylase Level 27 Lipase 53 Thyroid Stimulating Hormone 3rd Gen 0.144 Date/Time Source Procedure Growth Status 06/05/17 21:45 Blood Peripheral Aerobic Blood Culture - Preliminary NO GROWTH IN 4 DAYS Resulted 06/05/17 21:45 Blood Peripheral Anaerobic Blood Culture - Preliminary NO GROWTH IN 4 DAYS Resulted 06/06/17 13:00 Sputum Endotracheal Gram Stain - Final Complete 06/06/17 13:00 Sputum Culture - Final Enterobacter Aerogenes Complete Cardiovascular: Regular Lungs: Clear Abdomen: Other (lap sites c/d/i; GLENN x2 with serous fluid ) Extremities: Other (see below ) Narrative Exam LEFT calf--- chronic appearing wound 2+ pitting edema in BLE; small dark spots on planter surface of foot A/P Assessment and Plan 62 year old male POD4 dx lap, lap modified marcos patch, washout for perforated viscus/large anterior gastric ulcer -A-fib with RVR---on Amiodarone PO and has been given IV Lopressor -UGI today shows no leak---DC NGT and start sips of clears -Stable on NC -Continue Zosyn/Diflucan -Continue coverage for H. Pylori -Monitor electrolytes -Routine GLENN care -PT following --OOB once heart rate controlled -Needs to stay in ISC due to elevated HR Attending Statement patient seen at bedside appears better keep in isc close monitoring keep drains Attestation The exam, history, and the medical decision-making described in the above note were completed with the assistance of the mid-level provider. I reviewed and agree with the findings presented. I attest that I had a [id number] encounter with the patient on the same day, and personally performed and documented my assessment and findings in the medical record. Lana OteroP/Strong Nit[employer] Operator [employer] Jun 09, 2017 15:36 Vijay Valle MD Jun 17, 2017 09:57
[2017-06-09] MEDS ORDERED: PHARMACY ORDERED LAB ONE (18:45)
[2017-06-09] MEDS: ENOXAPARIN SODIUM 40 MG/0.4 ML SYRINGE SQ SCH (20:45)
[2017-06-09] MEDS: FLUCONAZOLE 400 MG PREMIX BAG 200 ML IV SCH (22:44)
[2017-06-10] VITALS (14 sets, daily range): BP systolic 91–120; BP diastolic 55–75; PULSE 70–165; RESP 18–24; TEMP 97.8–98.8; O2SAT 85–94
[2017-06-10] MEDS: PIPERACIL-TAZO 3.375 GM PREMIX 50 ML IV SCH ×4 (00:25→17:03)
[2017-06-10] MEDS: METOPROLOL TARTRATE 5 MG/5 ML VIAL IV PUSH PRN ×3 (00:57→08:02)
[2017-06-10] MEDS: CHLORHEXIDINE GLUCONATE 2 % 1 PACK (2 CLOTHS) TOP SCH (04:00)
[2017-06-10] MEDS: PANTOPRAZOLE INJ 80 MG in SODIUM CHLORIDE 0.9% INJ 100 ML IV SCH (04:39)
[2017-06-10] MEDS: RESP: ALBUTEROL 2.5 MG/IPRATROPIUM 0.5 MG NEB (SCH) NEB ×2 (04:46→10:00)
[2017-06-10] MEDS: MORPHINE SULFATE 4 MG/ML INJ IV PUSH PRN ×4 (05:43→21:30)
[2017-06-10] MEDS: CHLORHEXIDINE 0.12% (ORAL KIT) 15 ML CUP MT SCH ×2 (08:00→19:59)
[2017-06-10] MEDS: AMIODARONE 200 MG TAB PO SCH ×2 (08:04→20:01)
[2017-06-10] MEDS: FUROSEMIDE 40 MG/4 ML VIAL IV PUSH SCH ×2 (08:04→17:04)
[2017-06-10] MEDS: SODIUM CHLORIDE 0.9% FLUSH 10 ML FLUSH IV FLUSH SCH ×2 (08:04→20:00)
[2017-06-10] MEDS: CARVEDILOL 6.25 MG TAB PO SCH ×2 (08:04→20:01)
[2017-06-10] MEDS: DOCUSATE SODIUM 50 MG/SENNA 8.6 MG TAB PO SCH ×2 (08:04→20:01)
--- NOTE | 2017-06-10 08:28 | MB ---
cc: Jose Berry MD DATE: 06/09/2017 HISTORY OF PRESENT ILLNESS: Damián is a very pleasant 62-year-old gentleman who has had a complicated hospital course including a perforated viscus and respiratory failure, found to have a cardiomyopathy by echo, currently on nasal cannula, being diuresed. I have spoken at length with his nurse and the patient at the bedside. Apparently, the patient having heart rates up to the 140s, requiring beta tigist therapy for rate control. He is also being diuresed, with good urine output today 1.5 liters. I have also discussed the case with Dr. Robles, who has noted the patient's complicated course. The patient is currently denying chest pain. He appears uncertain about shortness of breath. He cannot answer yes or no question whether he is short of breath, but he appears to be at least mildly dyspneic. He otherwise denies any fevers, chills, cough, GI or bleeding, PND, orthopnea, syncope or dizziness. PAST MEDICAL HISTORY: As per history of present illness. He presented on 06/05/2017 with a chief complaint of abdominal pain for 2 weeks prior to admission. He also complained of orthopnea, also complained of ulcerations in the left lower leg. PAST MEDICAL HISTORY: Includes hypertension, hyperlipidemia, acute myocardial infarction. The patient is followed by Dr. Agarwal as an outpatient. Also includes hyperlipidemia, hypertension, history of myocardial infarction. SOCIAL HISTORY: He does smoke cigarettes. He denies alcohol use. ALLERGIES: NONE. CURRENT MEDICATIONS: In the hospital, amiodarone 200 mg daily, Lasix 40 mg IV x 1 at 07:00 a.m., Coreg 6.25 mg p.o. every 12 hours, furosemide 40 mg IV b.i.d., amiodarone 40 mg every 12 hours, pantoprazole drip, Lovenox 40 subcutaneous every 24 hours, p.r.n. IV metoprolol, piperacillin, tazobactam, propofol IV, fluconazole IV. PHYSICAL EXAMINATION: VITAL SIGNS: Blood pressure 150/76, pulse ranging between 72 and 148, currently 72, temperature 99.2, sats 92% on 4 liters nasal cannula. GENERAL: He is alert and oriented x 3, in no acute distress. NECK: Supple. No JVD. No bruit. CARDIOVASCULAR: S1, S2. No murmurs, rubs or gallops. LUNGS: Clear to auscultation bilaterally. ABDOMEN: Soft, nontender, nondistended. EXTREMITIES: 1+ lower extremity edema. IMAGING: Chest x-ray on 06/05/2017, cardiomegaly suspected. Minimal atelectasis at the bases. Abdominal pelvic CT. Free peritoneal air and fluid. The source is not fluid identified. "Bibasilar" is a consolidation or atelectasis at the lung bases. Small right renal calcifications which may represent nonobstructing renal stones. Chest CT 06/05/2017, bilateral atelectasis, coronary artery calcifications. evidence of an old apical infarct, emphysema. Extremity arterial study, slightly diminished ABIs bilaterally, characteristic of mild PAD. Chest x-ray 06/06/2017, increasing parenchymal changes, right base and upper GI series 06/09/2017. No evidence of gastric leakage. ECHOCARDIOGRAM: Normal sinus rhythm at 75 beats per minute. Intraseptal Q-waves . LABORATORY DATA: White count 15.0, hemoglobin 12.2, hematocrit 37.2, platelet count 320. Sodium 139, potassium 4.8, chloride 105, bicarbonate 26.5, BUN 19, creatinine 0.79, total bilirubin is 1.8, direct bilirubin 1.3. Troponin 0.18, albumin 1.3, INR 1.3. HE HAS THE FOLLOWING DIAGNOSES: 1. [id number] myocardial infarction. 2. Cardiomyopathy. 3. Hypoxia. 4. Perforated viscus. 5. Anemia. 6. Elevated bilirubin. DISCUSSION: I discussed the case with Dr. Robles and based on his dyspnea, elevated troponin and requirement for Lasix, the patient is still dependent on diuretics with unstable heart rhythm. Dr. Robles has recommended medical management for the time being, which I think is reasonable. However, he does have several indications for heart catheterization, including elevated troponin, unstable rhythm and hypoxia. Therefore, I have actually recommended heart catheterization to the patient. He is undecided. I am not clear why he is having paroxysmal tachycardia. He is not particularly anemic to account for this, although he most likely has low intravascular volume due to low albumin levels. We will continue to monitor his hemoglobin, oxygen requirements and we will also check BNP in the a.m. He does appear to be on optimal medications under the circumstances with amiodarone, Coreg 6.25 b.i.d. and Lasix. He is not on an AMERICA inhibitor, which when he is more stable hemodynamically, we can consider adding this, although his potassium is upper limit of normal actually. Further recommendations based on his oxygen requirements, hemodynamic trends, hemoglobin trends and levels of BNP and response to diuresis. MD KANWAL Serrano/NAREN , 05:22 PM , 06:10 PM
[2017-06-10 08:50] LABS: CREATININE 0.84 MG/DL (0.60-1.30); MAGNESIUM 1.9 MG/DL (1.5-2.5)
--- NOTE | 2017-06-10 13:06 | HHI.CCPN ---
Subjective Remarks/Hospital Course 62 year old male who presented to [facility] emergency department with 2 week history of abdominal pain. He had acute abdomen on presentation. He underwent CT abdomen and pelvis that demonstrated free air and free fluid. General surgery was consulted and he was taken emergently to the operating room. He also presented with acute kidney injury and potassium of 7.3 and I ordered medical management with calcium, bicarb, insulin, dextrose prior to going to OR. Dr. Valle states patient had a large perforated gastric ulcer for which he performed laparoscopic primary repair. Patient will be transitioned to [facility] and [facility] is consulted for postoperative critical care management. 06/06 1700 hours: Continual resuscitative efforts throughout the day, complicated by excessive fluid requirements and persistent hyperkalemia. Ongoing manipulations with bicarb, glucose, insulin, kayexalate, and calcium to control potassium levels. Punctate blue spots on feet appear embolic, cause of superficial ulcerations on calves less clear. Remains ventilator dependent. Hemodynamics still unstable. 06/07: Improved respiratory effort today. Will attempt weaning trials. Urine output remains adequate and hyperkalemia has finally resolved. Will leave nasogastric tube to low suction. 06/08: Extubated yesterday and breathing comfortably 24 hours later. Problems with hyperkalemia have resolved. Will throttle back on intravenous fluids given his poor ejection fraction. Will need to start diuretics shortly. Initiate unloading agents when rate is properly controlled and hypotension no longer problem. 06/09: He continues to breathe with acceptable comfort following extubation 2 days ago. General congestion and mobile secretions have cleared considerably. He is retaining fluid and given his fairly pronounced left ventricular dysfunction it is time to start twice daily diuretics and try to get rid of some of this excess fluid he accumulated during his resuscitation from peritonitis. In view of his poor LV, paroxysmal atrial fibrillation, and embolic-looking dots on his heels we should probably ask cardiology service to see him now that he is extubated and probably survivable. 06/10: Markedly improved overnight after diuresis. Gas exchange better. Cardiac cath anytime is OK with me. Will be forced to start full anticoagulation if he doesn't revert back to NSR permanently. Convert to biaxin/flagyl for another 10 days for possible H. pylori. Objective Vital Signs Date Time Temp Pulse Resp B/P (MAP) Pulse Ox O2 Delivery O2 Flow Rate FiO2 06/10/17 12:00 146 06/10/17 12:00 98.6 21 99/75 (83) 88 06/10/17 08:00 Nasal Cannula 5.00 90 Intake and Output 06/10/17 06/10/17 06/11/17 08:00 16:00 00:00 Intake Total 1120 ml Output Total 1385 ml Balance -265 ml Result Diagram: 06/08/17 0316 06/10/17 0815 Objective Remarks GENERAL: Chronically ill-appearing male. SKIN: Warm and dry. HEAD: Atraumatic. Normocephalic. EYES: Pupils equal and round, 2 mm and reactive bilaterally. No scleral icterus. ENT: No nasal bleeding or discharge. Mucous membranes pink and moist. NECK: Trachea midline. CARDIOVASCULAR: Normal sinus rhythm, no jugular venous distention. No murmurs rubs or gallops appreciated. RESPIRATORY: Clear bilateral breath sounds. Good air movement. GASTROINTESTINAL: Abdomen less distended. Bowel sounds active. GLENN drain 2. The right lateral drain is in the pelvis and the middle drain is near the ulcer closure. MUSCULOSKELETAL: Extremities without clubbing, cyanosis. There is 2+ bipedal edema. There are blisters over the dorsum of his left lower extremity that appears to be filled with serous and slightly hemorrhagic fluid. There is soft eschar overlying the lateral aspect of the left lower leg and just above the left lateral malleolus. Some erythema and warmth overlying lateral malleolus. No fluctuance or drainage. The soles of bilateral feet have embolic lesions. First toe on the left is discolored.Feet are warm, edema persists but improved, and well perfused. NEUROLOGICAL: Conversant, oriented, hungry. Moves 4 limbs to command. A/P Assessment and Plan NEURO: d/c Propofol for sedation Target RASS 0 Fentanyl as needed for pain RESP: Acute postoperative respiratory failure COPD Emphysema Obstructive sleep apnea Obtain chest x-ray post intubation. PRVC. Ventilator bundle. CT chest bibasilar atelectasis DuoNeb every 6 hours. Albuterol every 2 hours awake. Spontaneous breathing trial Chest x-ray satisfactory endotracheal tube position. Right basilar pneumonia/ consolidation has resolved. Small bilateral pleural effusions will respond to diuretics. CV: Coronary artery disease Dilated ischemic cardiomyopathy, EF 30% Prior myocardial infarction Hypertension Hyperlipidemia Atrial fibrillation with RVR Given metoprolol 5 mg IV and was then in sinus rhythm with rate in the 70s-80s. Will continue metoprolol 5 mg IV every 6 hours with hold orders based on heart rate and blood pressure. Received 2 L of crystalloid in the ED, 2300 of crystalloid in the OR. 0.9 NaCl at 125 mL/h. EKG sinus tach with ?inferior ST elevation, normalized on subsequent EKG. ?2ry to hyperkalemia. Troponin negative, will trend. Ongoing fluid demands. Probable PAD Embolic phenomenon bilateral feet. No AAA. Will obtain Echo, ALEJANDRA. Has paroxysmal atrial fibrillation but not candidate for full dose anticoagulation at this time due to post op large peptic ulcer repair and risk for bleeding. ABIs close to normal for his age. Source of possible embolic debris in the lower extremities remains unclear, possibly paroxysmal atrial fibrillation. His episodes of atrial fibrillation at this point are not sustained. At most 10 minutes. Considering possible embolic debris in his feet it is probably best to consider long-term anticoagulation. 2500 mL's of fluid off net after diuretics. Continue, reduce to daily dose after [address] Berry suggested Cardizem and we will start po qid 60 mg. (IV not available) GI: Perforated peptic ulcer now status post laparoscopic primary repair by Dr. Valle 06/06/17 Treat for H pylori with clarithromycin/amoxicillin/PPI 14 days (presently on Zosyn postoperatively) -> covert to flagyl/biaxin for 10 additional days. Pantoprazole drip running. FEN/RENAL: Acute hyperkalemia Acute kidney injury Dunbar in place. Monitor intake and output. Hyperkalemia medically managed with calcium gluconate 2 g IV, bicarb 100 mg IV, dextrose 50 g IV, regular insulin 10 units IV. Potassium down trended initially then back up to 6.9 postoperatively. Treated medically again with the same treatment and Kayexalate. Continue fluids as per above. Discontinue bicarb gtt Start diuretic twice daily ID: Severe sepsis Left lower leg cellulitis D/C Zosyn, Diflucan, vancomycin (particularly in view of skin lesions/cellulitis ). Follow-up blood culture. Short course of empiric antibiotic and then transition to therapy for H. pylori for 14 days (clarithromycin, amoxicillin) UA negative Chest x-ray with increasing right lower lobe opacity. Send sputum culture. HEME: Monitor CBC ENDO: Euglycemic. PROPH: No SCDs for now due to concern for PAD. Convert to protonix 40 bid. ACCESS: Peripheral IV providing adequate access at this time Overall impression: Patient remains at high risk for further decompensation owing to poor left ventricular function. So far he is progressing nicely. Despite multiple noninvasive studies we have not sorted out the source of the embolic-looking debris in his feet. Paroxysmal atrial fibrillation appears to be the most likely source. Atheromatous embolization from the diseased aorta is certainly another possibility. Undergoing cardiology evaluation. Kyler Talley MD Jun 10, 2017 13:06
[2017-06-10] MEDS: DILTIAZEM HCL 60 MG TAB PO SCH ×3 (13:17→20:01)
[2017-06-10] MEDS: MAGNESIUM SULFATE 1 GM PREMIX 100 ML IV SCH ×2 (13:17→14:33)
[2017-06-10] MEDS: PANTOPRAZOLE SODIUM 40 MG VIAL IV PUSH SCH ×2 (13:18→20:00)
--- NOTE | 2017-06-10 14:02 | PD.CARD.PN ---
Subjective Subjective Remarks alert in nad Objective Medications Current Medications Medications (Trade) Dose Ordered Sig/Vincent Route Start Time Stop Time Status Last Admin Fluconazole/ Sodium Chloride 200 ml @ 100 mls/hr Q24H IV 06/05/17 23:30 06/09/17 22:44 Piperacillin Sod/ Tazobactam Sod 50 ml @ 100 mls/hr Q6H IV 06/06/17 06:00 06/10/17 12:18 (Peridex 0.12% Liq) 15 ml BID@08,20 MT 06/06/17 08:00 06/10/17 08:00 Propofol 100 ml @ 2.865 mls/ hr TITRATE PRN IV 06/06/17 04:45 06/07/17 07:54 (NS Flush) 2 ml UNSCH PRN IV FLUSH 06/06/17 07:00 06/09/17 19:58 (NS Flush) 2 ml BID IV FLUSH 06/06/17 09:00 06/10/17 08:04 (Tylenol) 650 mg Q6H PRN PO 06/06/17 07:00 (Zofran Inj) 4 mg Q6H PRN IV PUSH 06/06/17 07:00 (Albuterol Neb) 2.5 mg Q2HR NEB PRN INH 06/06/17 07:00 Miscellaneous Information 1 Q361D XX 06/06/17 07:00 06/06/17 08:20 (Chlorhexidine 2% Cloth) 3 pack Taper DAILY@04 TOP 06/07/17 04:00 06/03/18 03:59 06/07/17 04:00 (Chlorhexidine 2% Cloth) 3 pack UNSCH PRN TOP 06/06/17 07:00 (Liz-Colace) 1 tab BID PO 06/06/17 09:00 06/09/17 09:25 (Milk Of Magnesia Liq) 30 ml Q12H PRN PO 06/06/17 07:00 (Senokot) 17.2 mg Q12H PRN PO 06/06/17 07:00 (Dulcolax Supp) 10 mg DAILY PRN RECTAL 06/06/17 07:00 (Lactulose Liq) 30 ml DAILY PRN PO 06/06/17 07:00 (Duoneb Neb) 1 ampule Q6HR NEB NEB 06/06/17 16:00 06/10/17 04:46 (Lopressor Inj) 5 mg Q2H PRN IV PUSH 06/07/17 18:15 06/10/17 08:02 (Morphine Inj) 8 mg Q2H PRN IV PUSH 06/07/17 19:15 06/10/17 11:36 (Morphine Inj) 4 mg Q3H PRN IV PUSH 06/07/17 18:30 06/09/17 19:58 (Lovenox Inj) 40 mg Q24H SQ 06/08/17 21:00 06/09/17 20:45 (Coreg) 6.25 mg Q12HR PO 06/09/17 09:00 06/10/17 08:04 (Lasix Inj) 40 mg BID@,18 IV PUSH 06/09/17 09:00 06/11/17 08:59 06/10/17 08:04 (Cordarone) 400 mg Q12HR PO 06/09/17 09:00 06/12/17 06:59 06/10/17 08:04 (Lasix Inj) 40 mg DAILY@0700 IV PUSH 06/11/17 07:00 (Cordarone) 200 mg DAILY PO 06/12/17 09:00 (Cardizem) 60 mg QID PO 06/10/17 13:00 06/10/17 13:17 (Protonix Inj) 40 mg Q12HR IV PUSH 06/10/17 12:45 06/10/17 13:18 Magnesium Sulfate/ Dextrose 100 ml @ 100 mls/hr Q1H IV 06/10/17 12:45 06/10/17 14:44 06/10/17 13:17 (Biaxin) 500 mg Q12HR PO 06/10/17 15:00 (Flagyl) 500 mg Q8HR PO 06/10/17 14:00 Vital Signs / I&O Vital Signs Date Time Temp Pulse Resp B/P (MAP) Pulse Ox O2 Delivery O2 Flow Rate FiO2 06/10/17 12:00 146 06/10/17 12:00 98.6 152 21 99/75 (83) 88 06/10/17 10:00 141 06/10/17 08:00 152 06/10/17 08:00 Nasal Cannula 5.00 90 06/10/17 08:00 98.8 152 21 99/75 (83) 88 06/10/17 06:00 75 06/10/17 04:00 130 06/10/17 04:00 98.2 130 23 120/64 (82) 93 06/10/17 02:00 139 06/10/17 00:00 98.0 71 19 104/55 (71) 94 06/10/17 00:00 71 06/09/17 22:00 134 06/09/17 20:30 92 Nasal Cannula 5.00 06/09/17 20:00 97.0 74 25 110/58 (75) 91 06/09/17 20:00 153 06/09/17 19:00 91 Nasal Cannula 5.00 06/09/17 18:00 148 06/09/17 16:00 81 06/09/17 16:00 97.7 81 28 121/59 (79) 90 06/09/17 14:00 70 I/O 06/09/17 06/09/17 06/09/17 06/10/17 06/10/17 06/10/17 07:00 15:00 23:00 07:00 15:00 23:00 Intake Total 150 ml 530 ml 1120 ml 100 ml Output Total 720 ml 2980 ml 1385 ml Balance -720 ml 150 ml -2450 ml -265 ml 100 ml Intake Oral 480 ml 720 ml IV Total 150 ml 50 ml 400 ml 100 ml Output Urine Total 550 ml 2800 ml 1325 ml Gastric Drainage Total 100 ml 100 ml Drainage Total 70 ml 80 ml 60 ml # Bowel Movements 2 3 Laboratory GENERAL: SKIN: Warm and dry. HEAD: Normocephalic. EYES: No scleral icterus. No injection or drainage. NECK: Supple, trachea midline. No JVD or lymphadenopathy. CARDIOVASCULAR: Regular rate and rhythm without murmurs, gallops, or rubs. RESPIRATORY: Breath sounds equal bilaterally. No accessory muscle use. GASTROINTESTINAL: Abdomen soft, non-tender, nondistended. MUSCULOSKELETAL: No cyanosis, or edema. BACK: Nontender without obvious deformity. No CVA tenderness. Laboratory Tests Test 06/10/17 08:15 Blood Urea Nitrogen 22 MG/DL Creatinine 0.84 MG/DL Random Glucose 93 MG/DL Calcium Level 8.0 MG/DL Magnesium Level 1.9 MG/DL Sodium Level 135 MEQ/L Potassium Level 4.0 MEQ/L Chloride Level 100 MEQ/L Carbon Dioxide Level 28.0 MEQ/L Anion Gap 7 MEQ/L Estimat Glomerular Filtration Rate 93 ML/MIN B-Type Natriuretic Peptide 650 PG/ML Assessment and Plan Problem List: (1) NSTEMI (non-ST elevated myocardial infarction) ICD Codes: I21.4 - Non-ST elevation (NSTEMI) myocardial infarction (2) Cardiomyopathy ICD Codes: I42.9 - Cardiomyopathy, unspecified (3) Hyponatremia ICD Codes: E87.1 - Hypo-osmolality and hyponatremia Status: Acute (4) Atrial fibrillation with RVR ICD Codes: I48.91 - Unspecified atrial fibrillation Status: Acute (5) Perforated bowel ICD Codes: K63.1 - Perforation of intestine (nontraumatic) Status: Acute Assessment and Plan 1.) NSTEMI/cardiomyopathy - will need rhc/lhc at some point due to persistent decompensated chf, nstemi, afib with uncontrolled rate, has recent perforated viscus so will try to postpone until 06/13/17 if patient consents; he currently is non committal 2.) Afib with rvr - consult Dr James, has low intravascular volume due to 3rd spacing from low albumin Jose Berry MD Jun 10, 2017 14:02
[2017-06-10] MEDS: metroNIDAZOLE 500 MG TAB PO SCH ×2 (14:36→21:11)
--- NOTE | 2017-06-10 15:43 | HHI.PR ---
Subjective Subjective Notes Resting in bed Wants to speak with a Family Practice Physician Assistant HR continues to be elevated Objective Vitals/I&O Vital Signs Date Time Temp Pulse Resp B/P (MAP) Pulse Ox O2 Delivery O2 Flow Rate FiO2 06/10/17 12:00 146 06/10/17 12:00 98.6 21 99/75 (83) 88 06/10/17 08:00 Nasal Cannula 5.00 90 Labs Laboratory Tests Test 06/10/17 08:15 Blood Urea Nitrogen 22 Creatinine 0.84 Random Glucose 93 Calcium Level 8.0 Magnesium Level 1.9 Sodium Level 135 Potassium Level 4.0 Chloride Level 100 Carbon Dioxide Level 28.0 Anion Gap 7 Estimat Glomerular Filtration Rate 93 B-Type Natriuretic Peptide 650 Date/Time Source Procedure Growth Status 06/05/17 21:45 Blood Peripheral Aerobic Blood Culture - Final NO GROWTH IN 5 DAYS Complete 06/05/17 21:45 Blood Peripheral Anaerobic Blood Culture - Final NO GROWTH IN 5 DAYS Complete 06/06/17 13:00 Sputum Endotracheal Gram Stain - Final Complete 06/06/17 13:00 Sputum Culture - Final Enterobacter Aerogenes Complete Cardiovascular: Regular Lungs: Clear Abdomen: Other (lap sites c/d/i; GLENN x2 with Serous drainage; abdomen soft minimally tender ) Extremities: Other (see below ) Narrative Exam LEFT calf--- chronic appearing wound 2+ pitting edema in BLE; small dark spots on planter surface of foot A/P Assessment and Plan 62 year old male POD5 dx lap, lap modified marcos patch, washout for perforated viscus/large anterior gastric ulcer -Continues to have elevated HR--- Cardiology consulted -Advance to Full liquid diet -DC GLENN #2 -Stable on NC -Continue Zosyn/Diflucan -Continue coverage for H. Pylori -PT following --OOB once heart rate controlled Attending Statement patient seen at bedside doing better await cardio recs possible transfer soon full liq diet Attestation The exam, history, and the medical decision-making described in the above note were completed with the assistance of the mid-level provider. I reviewed and agree with the findings presented. I attest that I had a [id number] encounter with the patient on the same day, and personally performed and documented my assessment and findings in the medical record. Lana Otero/First Henny KING Jun 10, 2017 15:43 Vijay Valle MD Jun 17, 2017 09:58
[2017-06-10] MEDS: CLARITHROMYCIN 500 MG TAB PO SCH ×2 (17:41→20:11)
[2017-06-10] MEDS: ENOXAPARIN SODIUM 40 MG/0.4 ML SYRINGE SQ SCH (20:01)
[2017-06-10] MEDS ORDERED: FUROSEMIDE 40 MG/4 ML VIAL IV PUSH ONE (22:00)
[2017-06-10] MEDS: FLUCONAZOLE 400 MG PREMIX BAG 200 ML IV SCH (23:02)
[2017-06-11] VITALS (13 sets, daily range): BP systolic 92–122; BP diastolic 50–59; PULSE 67–76; RESP 20–28; TEMP 97.6–98.6; O2SAT 87–97
[2017-06-11] MEDS: PIPERACIL-TAZO 3.375 GM PREMIX 50 ML IV SCH ×4 (00:03→18:40)
[2017-06-11] MEDS: MORPHINE SULFATE 4 MG/ML INJ IV PUSH PRN ×6 (01:06→19:43)
[2017-06-11] MEDS: CHLORHEXIDINE GLUCONATE 2 % 1 PACK (2 CLOTHS) TOP SCH (03:24)
[2017-06-11] MEDS: metroNIDAZOLE 500 MG TAB PO SCH ×3 (05:37→20:57)
[2017-06-11] MEDS: FUROSEMIDE 40 MG/4 ML VIAL IV PUSH SCH (06:31)
--- NOTE | 2017-06-11 06:58 | HHI.CCPN ---
Subjective Remarks/Hospital Course 62 year old male who presented to [facility] emergency department with 2 week history of abdominal pain. He had acute abdomen on presentation. He underwent CT abdomen and pelvis that demonstrated free air and free fluid. General surgery was consulted and he was taken emergently to the operating room. He also presented with acute kidney injury and potassium of 7.3 and I ordered medical management with calcium, bicarb, insulin, dextrose prior to going to OR. Dr. Valle states patient had a large perforated gastric ulcer for which he performed laparoscopic primary repair. Patient will be transitioned to [facility] and [facility] is consulted for postoperative critical care management. 06/06 1700 hours: Continual resuscitative efforts throughout the day, complicated by excessive fluid requirements and persistent hyperkalemia. Ongoing manipulations with bicarb, glucose, insulin, kayexalate, and calcium to control potassium levels. Punctate blue spots on feet appear embolic, cause of superficial ulcerations on calves less clear. Remains ventilator dependent. Hemodynamics still unstable. 06/07: Improved respiratory effort today. Will attempt weaning trials. Urine output remains adequate and hyperkalemia has finally resolved. Will leave nasogastric tube to low suction. 06/08: Extubated yesterday and breathing comfortably 24 hours later. Problems with hyperkalemia have resolved. Will throttle back on intravenous fluids given his poor ejection fraction. Will need to start diuretics shortly. Initiate unloading agents when rate is properly controlled and hypotension no longer problem. 06/09: He continues to breathe with acceptable comfort following extubation 2 days ago. General congestion and mobile secretions have cleared considerably. He is retaining fluid and given his fairly pronounced left ventricular dysfunction it is time to start twice daily diuretics and try to get rid of some of this excess fluid he accumulated during his resuscitation from peritonitis. In view of his poor LV, paroxysmal atrial fibrillation, and embolic-looking dots on his heels we should probably ask cardiology service to see him now that he is extubated and probably survivable. 06/10: Markedly improved overnight after diuresis. Gas exchange better. Cardiac cath anytime is OK with me. Will be forced to start full anticoagulation if he doesn't revert back to NSR permanently. Convert to biaxin/flagyl for another 10 days for possible H. pylori. 06/11: Good response to diuretics. Worsening gas exchange last night - will keep on [employer]. Continue aggressive diuresis. Objective Vital Signs Date Time Temp Pulse Resp B/P (MAP) Pulse Ox O2 Delivery O2 Flow Rate FiO2 06/11/17 06:00 74 06/11/17 04:00 22 103/55 (71) 93 06/10/17 23:02 70 06/10/17 22:05 BiPAP 06/10/17 20:00 97.8 06/10/17 08:00 5.00 Intake and Output 06/11/17 06/11/17 06/12/17 08:00 16:00 00:00 Intake Total 780 ml Output Total 2670 ml Balance -1890 ml Result Diagram: 06/08/17 0316 06/10/17 0815 Objective Remarks GENERAL: Chronically ill-appearing male. SKIN: Warm and dry. HEAD: Atraumatic. Normocephalic. EYES: Pupils equal and round, 2 mm and reactive bilaterally. No scleral icterus. ENT: No nasal bleeding or discharge. Mucous membranes pink and moist. NECK: Trachea midline. CARDIOVASCULAR: Normal sinus rhythm, no jugular venous distention. No murmurs rubs or gallops appreciated. RESPIRATORY: Clear bilateral breath sounds. Good air movement. Few new crackles bases. GASTROINTESTINAL: Abdomen less distended. Bowel sounds active. GLENN drain 2. The right lateral drain is in the pelvis and the middle drain is near the ulcer closure. MUSCULOSKELETAL: Extremities without clubbing, cyanosis. There is 2+ bipedal edema. There are blisters over the dorsum of his left lower extremity that appears to be filled with serous and slightly hemorrhagic fluid. There is soft eschar overlying the lateral aspect of the left lower leg and just above the left lateral malleolus. Some erythema and warmth overlying lateral malleolus. No fluctuance or drainage. The soles of bilateral feet have embolic lesions. First toe on the left is discolored.Feet are warm, edema persists but improved, and well perfused. NEUROLOGICAL: Conversant, oriented, hungry. Moves 4 limbs to command. Labored breathing. A/P Assessment and Plan NEURO: d/c Propofol for sedation Target RASS 0 Fentanyl as needed for pain RESP: Acute postoperative respiratory failure COPD Emphysema Obstructive sleep apnea Obtain chest x-ray post intubation. PRVC. Ventilator bundle. CT chest bibasilar atelectasis DuoNeb every 6 hours. Albuterol every 2 hours awake. Spontaneous breathing trial Chest x-ray satisfactory endotracheal tube position. Right basilar pneumonia/ consolidation has resolved. Small bilateral pleural effusions will respond to diuretics. CV: Coronary artery disease Dilated ischemic cardiomyopathy, EF 30% Prior myocardial infarction Hypertension Hyperlipidemia Atrial fibrillation with RVR Given metoprolol 5 mg IV and was then in sinus rhythm with rate in the 70s-80s. Will continue metoprolol 5 mg IV every 6 hours with hold orders based on heart rate and blood pressure. Received 2 L of crystalloid in the ED, 2300 of crystalloid in the OR. 0.9 NaCl at 125 mL/h. EKG sinus tach with ?inferior ST elevation, normalized on subsequent EKG. ?2ry to hyperkalemia. Troponin negative, will trend. Ongoing fluid demands. Probable PAD Embolic phenomenon bilateral feet. No AAA. Will obtain Echo, ALEJANDRA. Has paroxysmal atrial fibrillation but not candidate for full dose anticoagulation at this time due to post op large peptic ulcer repair and risk for bleeding. ABIs close to normal for his age. Source of possible embolic debris in the lower extremities remains unclear, possibly paroxysmal atrial fibrillation. His episodes of atrial fibrillation at this point are not sustained. At most 10 minutes. Considering possible embolic debris in his feet it is probably best to consider long-term anticoagulation. 2500 mL's of fluid off net after diuretics. Continue, reduce to daily dose after [address] Berry suggested Cardizem and we will start po qid 60 mg. (IV not available) GI: Perforated peptic ulcer now status post laparoscopic primary repair by Dr. Valle 06/06/17 Treat for H pylori with clarithromycin/amoxicillin/PPI 14 days (presently on Zosyn postoperatively) -> covert to flagyl/biaxin for 10 additional days. Pantoprazole drip running. FEN/RENAL: Acute hyperkalemia Acute kidney injury Dunbar in place. Monitor intake and output. Hyperkalemia medically managed with calcium gluconate 2 g IV, bicarb 100 mg IV, dextrose 50 g IV, regular insulin 10 units IV. Potassium down trended initially then back up to 6.9 postoperatively. Treated medically again with the same treatment and Kayexalate. Continue fluids as per above. Discontinue bicarb gtt Start diuretic twice daily ID: Severe sepsis Left lower leg cellulitis D/C Zosyn, Diflucan, vancomycin (particularly in view of skin lesions/cellulitis ). Follow-up blood culture. Short course of empiric antibiotic and then transition to therapy for H. pylori for 14 days (clarithromycin, amoxicillin) UA negative Chest x-ray with increasing right lower lobe opacity. Send sputum culture. HEME: Monitor CBC ENDO: Euglycemic. PROPH: No SCDs for now due to concern for PAD. Convert to protonix 40 bid. ACCESS: Peripheral IV providing adequate access at this time Overall impression: Patient remains at high risk for further decompensation owing to poor left ventricular function. So far he is progressing nicely. Despite multiple noninvasive studies we have not sorted out the source of the embolic-looking debris in his feet. Paroxysmal atrial fibrillation appears to be the most likely source. Atheromatous embolization from the diseased aorta is certainly another possibility. Undergoing cardiology evaluation. Kyler Talley MD Jun 11, 2017 06:58
[2017-06-11] MEDS: CHLORHEXIDINE 0.12% (ORAL KIT) 15 ML CUP MT SCH ×2 (08:00→19:44)
[2017-06-11 08:09] LABS: HEMATOCRIT 40.5 % (39.0-51.0); HEMOGLOBIN 13.8 GM/DL (13.0-17.0); MEAN CELL VOLUME 95.3 FL (80.0-100.0); MEAN CORPUSCULAR HEMOGLOBIN 32.4 PG (27.0-34.0); MEAN PLATELET VOLUME 10.5 FL (7.0-11.0); PLATELET COUNT 291 TH/MM3 (150-450); RED BLOOD COUNT 4.25 MIL/MM3 (4.50-5.90); RED CELL DISTRIBUTION WIDTH 14.3 % (11.6-17.2); WHITE BLOOD COUNT 13.9 TH/MM3 (4.0-11.0)
[2017-06-11 08:38] LABS: BICARBONATE 28.6 MEQ/L (21.0-32.0); CALCIUM 7.7 MG/DL (8.5-10.1); CREATININE 0.98 MG/DL (0.60-1.30)
--- NOTE | 2017-06-11 09:04 | EKG ---
Date Performed: 06/10/2017 Time Performed: 01:06:52 PTAGE: 62 years EKG: Possible atrial flutter, atrial fibrillation with rapid ventricular response with PVC(s) or aberrant ventricular conduction. Possible anterolateral infarct - age undetermined Abnormal ECG PREVIOUS TRACING : 06/06/2017 13.54 DOCTOR: Jose Maria James Interpretating Date/Time 06/11/2017 09:02:22
[2017-06-11] MEDS: CLARITHROMYCIN 500 MG TAB PO SCH ×2 (09:08→19:44)
[2017-06-11] MEDS: DOCUSATE SODIUM 50 MG/SENNA 8.6 MG TAB PO SCH ×3 (09:08→20:58)
[2017-06-11] MEDS: PANTOPRAZOLE SODIUM 40 MG VIAL IV PUSH SCH ×2 (09:10→19:45)
[2017-06-11] MEDS: AMIODARONE 200 MG TAB PO SCH ×2 (09:10→19:44)
[2017-06-11] MEDS: CARVEDILOL 6.25 MG TAB PO SCH ×2 (09:10→19:44)
[2017-06-11] MEDS: SODIUM CHLORIDE 0.9% FLUSH 10 ML FLUSH IV FLUSH SCH ×2 (09:11→19:44)
[2017-06-11] MEDS: DILTIAZEM HCL 60 MG TAB PO SCH ×4 (09:16→19:44)
--- NOTE | 2017-06-11 09:27 | RADRPT ---
EXAM DATE/TIME: 06/11/2017 08:01 [place] COMPARISON: CHEST SINGLE AP, June 06, 2017, 11:40. INDICATIONS : CHF. Hypoxemia. MEDICAL HISTORY : None. SURGICAL HISTORY : None. ENCOUNTER: Subsequent ACUITY: 3 days PAIN SCORE: Non-responsive. LOCATION: Bilateral chest FINDINGS: A single AP portable semierect view of the chest was obtained and demonstrates interval extubation an d removal of the nasogastric tube. Abnormal opacity remains at the lung bases with stable obscuration of left hemidiaphragm and blunting of left costophrenic angle. The heart size remains mildly enlarge d. There is mild hazy perihilar and bibasilar opacities. The bony thorax remains intact. CONCLUSION: 1. Interval extubation and removal of nasogastric tube since the prior study. 2. Hazy opacity remaining at the lung bases with probable left effusion. Pedro Pablo Sorensen MD on June 11, 2017 at 9:23 Board Certified Radiologist. This report was verified electronically.
--- NOTE | 2017-06-11 13:10 | HHI.PR ---
Subjective Subjective Notes no SOB, no NV, pain controlled Objective Vitals/I&O Vital Signs Date Time Temp Pulse Resp B/P (MAP) Pulse Ox O2 Delivery O2 Flow Rate FiO2 06/11/17 09:07 95 Simple Mask 11.00 06/11/17 06:00 74 06/11/17 04:00 22 103/55 (71) 06/10/17 23:02 70 06/10/17 20:00 97.8 Labs Laboratory Tests Test 06/11/17 07:03 White Blood Count 13.9 Red Blood Count 4.25 Hemoglobin 13.8 Hematocrit 40.5 Mean Corpuscular Volume 95.3 Mean Corpuscular Hemoglobin 32.4 Mean Corpuscular Hemoglobin Concent 34.0 Red Cell Distribution Width 14.3 Platelet Count 291 Mean Platelet Volume 10.5 Blood Urea Nitrogen 21 Creatinine 0.98 Random Glucose 86 Calcium Level 7.7 Magnesium Level 2.0 Sodium Level 131 Potassium Level 4.4 Chloride Level 92 Carbon Dioxide Level 28.6 Anion Gap 10 Estimat Glomerular Filtration Rate 78 B-Type Natriuretic Peptide 238 Date/Time Source Procedure Growth Status 06/05/17 21:45 Blood Peripheral Aerobic Blood Culture - Final NO GROWTH IN 5 DAYS Complete 06/05/17 21:45 Blood Peripheral Anaerobic Blood Culture - Final NO GROWTH IN 5 DAYS Complete 06/06/17 13:00 Sputum Endotracheal Gram Stain - Final Complete 06/06/17 13:00 Sputum Culture - Final Enterobacter Aerogenes Complete Abdomen: Non-distended, Post-op tenderness Narrative Exam inc c/d/i, GLENN clear A/P Assessment and Plan 62 year old male POD6 dx lap, lap modified marcos patch, washout for perforated viscus/large anterior gastric ulcer -Full liquid diet -Continue Zosyn/Diflucan -Continue coverage for H. Pylori -PT Rudy Joyce MD Jun 11, 2017 13:10
[2017-06-11] MEDS: ENOXAPARIN SODIUM 40 MG/0.4 ML SYRINGE SQ SCH (19:44)
[2017-06-11] MEDS: FLUCONAZOLE 400 MG PREMIX BAG 200 ML IV SCH (22:06)
[2017-06-12] VITALS (13 sets, daily range): BP systolic 94–123; BP diastolic 50–63; PULSE 64–78; RESP 21–28; TEMP 97.5–98.2; O2SAT 88–97
[2017-06-12] MEDS: PIPERACIL-TAZO 3.375 GM PREMIX 50 ML IV SCH ×4 (00:46→17:14)
[2017-06-12] MEDS: MORPHINE SULFATE 4 MG/ML INJ IV PUSH PRN ×8 (00:55→23:23)
[2017-06-12] MEDS: CHLORHEXIDINE GLUCONATE 2 % 1 PACK (2 CLOTHS) TOP SCH ×2 (03:52→23:54)
[2017-06-12] MEDS: metroNIDAZOLE 500 MG TAB PO SCH ×3 (05:17→21:20)
[2017-06-12] MEDS: FUROSEMIDE 40 MG/4 ML VIAL IV PUSH SCH (06:54)
[2017-06-12 06:56] LABS: BICARBONATE 26.4 MEQ/L (21.0-32.0); CALCIUM 7.6 MG/DL (8.5-10.1); CREATININE 0.81 MG/DL (0.60-1.30)
[2017-06-12] MEDS: CHLORHEXIDINE 0.12% (ORAL KIT) 15 ML CUP MT SCH ×2 (08:00→19:55)
[2017-06-12] MEDS: CLARITHROMYCIN 500 MG TAB PO SCH ×2 (08:01→21:20)
[2017-06-12] MEDS: PANTOPRAZOLE SODIUM 40 MG VIAL IV PUSH SCH ×2 (08:01→19:54)
[2017-06-12] MEDS: CARVEDILOL 6.25 MG TAB PO SCH ×2 (08:02→19:55)
[2017-06-12] MEDS: AMIODARONE 200 MG TAB PO SCH (08:02)
[2017-06-12] MEDS: DOCUSATE SODIUM 50 MG/SENNA 8.6 MG TAB PO SCH ×2 (08:02→19:55)
[2017-06-12] MEDS: SODIUM CHLORIDE 0.9% FLUSH 10 ML FLUSH IV FLUSH SCH ×2 (08:03→19:55)
[2017-06-12] MEDS: DILTIAZEM HCL 60 MG TAB PO SCH ×4 (08:05→19:55)
--- NOTE | 2017-06-12 10:51 | HHI.CCPN ---
Subjective Remarks/Hospital Course 62 year old male who presented to [facility] emergency department with 2 week history of abdominal pain. He had acute abdomen on presentation. He underwent CT abdomen and pelvis that demonstrated free air and free fluid. General surgery was consulted and he was taken emergently to the operating room. He also presented with acute kidney injury and potassium of 7.3 and I ordered medical management with calcium, bicarb, insulin, dextrose prior to going to OR. Dr. Valle states patient had a large perforated gastric ulcer for which he performed laparoscopic primary repair. Patient will be transitioned to [facility] and [facility] is consulted for postoperative critical care management. 06/06 1700 hours: Continual resuscitative efforts throughout the day, complicated by excessive fluid requirements and persistent hyperkalemia. Ongoing manipulations with bicarb, glucose, insulin, kayexalate, and calcium to control potassium levels. Punctate blue spots on feet appear embolic, cause of superficial ulcerations on calves less clear. Remains ventilator dependent. Hemodynamics still unstable. 06/07: Improved respiratory effort today. Will attempt weaning trials. Urine output remains adequate and hyperkalemia has finally resolved. Will leave nasogastric tube to low suction. 06/08: Extubated yesterday and breathing comfortably 24 hours later. Problems with hyperkalemia have resolved. Will throttle back on intravenous fluids given his poor ejection fraction. Will need to start diuretics shortly. Initiate unloading agents when rate is properly controlled and hypotension no longer problem. 06/09: He continues to breathe with acceptable comfort following extubation 2 days ago. General congestion and mobile secretions have cleared considerably. He is retaining fluid and given his fairly pronounced left ventricular dysfunction it is time to start twice daily diuretics and try to get rid of some of this excess fluid he accumulated during his resuscitation from peritonitis. In view of his poor LV, paroxysmal atrial fibrillation, and embolic-looking dots on his heels we should probably ask cardiology service to see him now that he is extubated and probably survivable. 06/10: Markedly improved overnight after diuresis. Gas exchange better. Cardiac cath anytime is OK with me. Will be forced to start full anticoagulation if he doesn't revert back to NSR permanently. Convert to biaxin/flagyl for another 10 days for possible H. pylori. 06/11: Good response to diuretics. Worsening gas exchange last night - will keep on Note Specialist Service. Continue aggressive diuresis. 06/12: B natruretic peptide declining nicely after aggressive diuretic therapy. His work of breathing remains excessive at times. Chest x-ray is clearing nicely but he remains labored. In the context of his poor left ventricular function we will continue to diuresis him. Objective Vital Signs Date Time Temp Pulse Resp B/P (MAP) Pulse Ox O2 Delivery O2 Flow Rate FiO2 06/12/17 08:00 97 Simple Mask 10.00 06/12/17 08:00 70 06/12/17 08:00 97.6 23 109/63 (78) 06/10/17 23:02 70 Intake and Output 06/12/17 06/12/17 06/13/17 08:00 16:00 00:00 Intake Total 1210 ml Output Total 2195 ml Balance -985 ml Result Diagram: 06/11/17 0703 06/12/17 0537 Objective Remarks GENERAL: Chronically ill-appearing male. SKIN: Warm and dry. HEAD: Atraumatic. Normocephalic. EYES: Pupils equal and round, 2 mm and reactive bilaterally. No scleral icterus. ENT: No nasal bleeding or discharge. Mucous membranes pink and moist. NECK: Trachea midline. CARDIOVASCULAR: Normal sinus rhythm, no jugular venous distention. No murmurs rubs or gallops appreciated. RESPIRATORY: Clear bilateral breath sounds. Good air movement. Few new crackles bases. GASTROINTESTINAL: Abdomen less distended. Bowel sounds active. MUSCULOSKELETAL: Extremities without clubbing, cyanosis. There is trace+ bipedal edema. There are blisters over the dorsum of his left lower extremity that appears to be filled with serous and slightly hemorrhagic fluid. There is soft eschar overlying the lateral aspect of the left lower leg and just above the left lateral malleolus. Some erythema and warmth overlying lateral malleolus. No fluctuance or drainage. The soles of bilateral feet have embolic lesions. First toe on the left is discolored. Feet are warm, edema persists but improved, and well perfused. NEUROLOGICAL: Conversant, oriented, hungry. Moves 4 limbs to command. Labored breathing persists. Week. A/P Assessment and Plan NEURO: d/c Propofol for sedation Target RASS 0 Fentanyl as needed for pain RESP: Acute postoperative respiratory failure COPD Emphysema Obstructive sleep apnea Obtain chest x-ray post intubation. PRVC. Ventilator bundle. CT chest bibasilar atelectasis DuoNeb every 6 hours. Albuterol every 2 hours awake. Spontaneous breathing trial Chest x-ray satisfactory endotracheal tube position. Right basilar pneumonia/ consolidation has resolved. Small bilateral pleural effusions have responded to diuretics. CV: Coronary artery disease Dilated ischemic cardiomyopathy, EF 30% Prior myocardial infarction Hypertension Hyperlipidemia Atrial fibrillation with RVR Given metoprolol 5 mg IV and was then in sinus rhythm with rate in the 70s-80s. Will continue metoprolol 5 mg IV every 6 hours with hold orders based on heart rate and blood pressure. Received 2 L of crystalloid in the ED, 2300 of crystalloid in the OR. 0.9 NaCl at 125 mL/h. EKG sinus tach with ?inferior ST elevation, normalized on subsequent EKG. ?2ry to hyperkalemia. Troponin negative, will trend. Ongoing fluid demands. Probable PAD Embolic phenomenon bilateral feet. No AAA. Will obtain Echo, ALEJANDRA. Has paroxysmal atrial fibrillation but not candidate for full dose anticoagulation at this time due to post op large peptic ulcer repair and risk for bleeding. ABIs close to normal for his age. Source of possible embolic debris in the lower extremities remains unclear, possibly paroxysmal atrial fibrillation. His episodes of atrial fibrillation at this point are not sustained. At most 10 minutes. Considering possible embolic debris in his feet it is probably best to consider long-term anticoagulation. 2500 mL's of fluid off net after diuretics. Continue, reduce to daily dose after 1 more day. Cardizem and we will start po qid 60 mg. (IV not available) GI: Perforated peptic ulcer now status post laparoscopic primary repair by Dr. Valle 06/06/17 Treat for H pylori with clarithromycin/amoxicillin/PPI 14 days (presently on Zosyn postoperatively) -> covert to flagyl/biaxin for 10 additional days. Pantoprazole drip running. FEN/RENAL: Acute hyperkalemia Acute kidney injury Dunbar in place. Monitor intake and output. Hyperkalemia medically managed with calcium gluconate 2 g IV, bicarb 100 mg IV, dextrose 50 g IV, regular insulin 10 units IV. Potassium down trended initially then back up to 6.9 postoperatively. Treated medically again with the same treatment and Kayexalate. Continue fluids as per above. Discontinue bicarb gtt Reduce diuretic to once daily ID: Severe sepsis Left lower leg cellulitis D/C Zosyn, Diflucan, vancomycin (particularly in view of skin lesions/cellulitis ). Follow-up blood culture. Short course of empiric antibiotic and then transition to therapy for H. pylori for 14 days (clarithromycin, amoxicillin) UA negative Chest x-ray with decreasing right lower lobe opacity. HEME: Monitor CBC ENDO: Euglycemic. PROPH: No SCDs for now due to concern for PAD. Convert to protonix 40 bid. ACCESS: Peripheral IV providing adequate access at this time Overall impression: Patient remains at high risk for further decompensation owing to poor left ventricular function. So far he is progressing nicely. Despite multiple noninvasive studies we have not sorted out the source of the embolic-looking debris in his feet. Paroxysmal atrial fibrillation appears to be the most likely source. Atheromatous embolization from the diseased aorta is certainly another possibility. Undergoing cardiology evaluation. Kyler Talley MD Jun 12, 2017 10:51
--- NOTE | 2017-06-12 11:05 | HHI.PR ---
Subjective Subjective Notes "i want food, i don't want liquids", pain controlled, gets SOB when he gets OOB , HR improved, drain with minimal bilious output Objective Vitals/I&O Vital Signs Date Time Temp Pulse Resp B/P (MAP) Pulse Ox O2 Delivery O2 Flow Rate FiO2 06/12/17 08:00 97 Simple Mask 10.00 06/12/17 08:00 70 06/12/17 08:00 97.6 23 109/63 (78) 06/10/17 23:02 70 Labs Laboratory Tests Test 06/12/17 05:37 Blood Urea Nitrogen 16 Creatinine 0.81 Random Glucose 82 Calcium Level 7.6 Sodium Level 130 Potassium Level 3.6 Chloride Level 94 Carbon Dioxide Level 26.4 Anion Gap 10 Estimat Glomerular Filtration Rate 97 B-Type Natriuretic Peptide 158 Date/Time Source Procedure Growth Status 06/05/17 21:45 Blood Peripheral Aerobic Blood Culture - Final NO GROWTH IN 5 DAYS Complete 06/05/17 21:45 Blood Peripheral Anaerobic Blood Culture - Final NO GROWTH IN 5 DAYS Complete 06/06/17 13:00 Sputum Endotracheal Gram Stain - Final Complete 06/06/17 13:00 Sputum Culture - Final Enterobacter Aerogenes Complete Abdomen: Non-distended, Post-op tenderness, BS normal Narrative Exam drain is empty, slight bile tinge Wound Wound : Appearance: Clean & Dry Dressing: Dry A/P Assessment and Plan POD 7 lap ulcer repair advance diet HR improved main issue is respiratory, diurese and wean oxygen Tono Peraza MD Jun 12, 2017 11:05
--- NOTE | 2017-06-12 12:15 | PD.CARD.PN ---
Subjective Subjective Remarks alert in nad Objective Medications Current Medications Medications (Trade) Dose Ordered Sig/Vincent Route Start Time Stop Time Status Last Admin Fluconazole/ Sodium Chloride 200 ml @ 100 mls/hr Q24H IV 06/05/17 23:30 06/11/17 22:06 Piperacillin Sod/ Tazobactam Sod 50 ml @ 100 mls/hr Q6H IV 06/06/17 06:00 06/12/17 05:17 (Peridex 0.12% Liq) 15 ml BID@08,20 MT 06/06/17 08:00 06/10/17 08:00 Propofol 100 ml @ 2.865 mls/ hr TITRATE PRN IV 06/06/17 04:45 06/07/17 07:54 (NS Flush) 2 ml UNSCH PRN IV FLUSH 06/06/17 07:00 06/09/17 19:58 (NS Flush) 2 ml BID IV FLUSH 06/06/17 09:00 06/12/17 08:03 (Tylenol) 650 mg Q6H PRN PO 06/06/17 07:00 (Zofran Inj) 4 mg Q6H PRN IV PUSH 06/06/17 07:00 (Albuterol Neb) 2.5 mg Q2HR NEB PRN INH 06/06/17 07:00 Miscellaneous Information 1 Q361D XX 06/06/17 07:00 06/06/17 08:20 (Chlorhexidine 2% Cloth) Taper DAILY@04 TOP 06/07/17 04:00 06/03/18 03:59 06/07/17 04:00 (Chlorhexidine 2% Cloth) 3 pack UNSCH PRN TOP 06/06/17 07:00 (Liz-Colace) 1 tab BID PO 06/06/17 09:00 06/12/17 08:02 (Milk Of Magnesia Liq) 30 ml Q12H PRN PO 06/06/17 07:00 (Senokot) 17.2 mg Q12H PRN PO 06/06/17 07:00 (Dulcolax Supp) 10 mg DAILY PRN RECTAL 06/06/17 07:00 (Lactulose Liq) 30 ml DAILY PRN PO 06/06/17 07:00 (Lopressor Inj) 5 mg Q2H PRN IV PUSH 06/07/17 18:15 06/10/17 08:02 (Morphine Inj) 8 mg Q2H PRN IV PUSH 06/07/17 19:15 06/12/17 03:53 (Morphine Inj) 4 mg Q3H PRN IV PUSH 06/07/17 18:30 06/12/17 08:02 (Lovenox Inj) 40 mg Q24H SQ 06/08/17 21:00 06/11/17 19:44 (Coreg) 6.25 mg Q12HR PO 06/09/17 09:00 06/12/17 08:02 (Lasix Inj) 40 mg DAILY@0700 IV PUSH 06/11/17 07:00 06/12/17 06:54 (Cordarone) 200 mg DAILY PO 06/12/17 09:00 06/12/17 08:02 (Cardizem) 60 mg QID PO 06/10/17 13:00 06/12/17 08:05 (Protonix Inj) 40 mg Q12HR IV PUSH 06/10/17 12:45 06/12/17 08:01 (Biaxin) 500 mg Q12HR PO 06/10/17 15:00 06/12/17 08:01 (Flagyl) 500 mg Q8HR PO 06/10/17 14:00 06/12/17 05:17 (Tears Naturale Opth Soln) 1 drop TID EACH EYE 06/12/17 13:00 Vital Signs / I&O Vital Signs Date Time Temp Pulse Resp B/P (MAP) Pulse Ox O2 Delivery O2 Flow Rate FiO2 06/12/17 10:00 68 06/12/17 08:00 97 Simple Mask 10.00 06/12/17 08:00 70 06/12/17 08:00 97.6 70 23 109/63 (78) 97 06/12/17 06:00 67 06/12/17 04:00 67 06/12/17 04:00 97.7 67 21 103/58 (73) 93 06/12/17 02:00 64 06/12/17 00:00 65 22 108/56 (73) 94 06/12/17 00:00 65 06/11/17 22:00 68 06/11/17 20:00 97.6 76 27 122/58 (79) 97 06/11/17 20:00 76 06/11/17 19:00 93 Simple Mask 10.00 06/11/17 18:00 68 06/11/17 16:00 70 06/11/17 16:00 97.7 70 27 104/59 (74) 94 06/11/17 14:00 71 I/O 06/11/17 06/11/17 06/11/17 06/12/17 06/12/17 06/12/17 07:00 15:00 23:00 07:00 15:00 23:00 Intake Total 780 ml 880 ml 1210 ml Output Total 2670 ml 2010 ml 2195 ml Balance -1890 ml -1130 ml -985 ml Intake Oral 480 ml 880 ml 960 ml IV Total 300 ml 250 ml Output Urine Total 2650 ml 2000 ml 2175 ml Drainage Total 20 ml 10 ml 20 ml # Bowel Movements 0 0 0 Laboratory GENERAL: SKIN: Warm and dry. HEAD: Normocephalic. EYES: No scleral icterus. No injection or drainage. NECK: Supple, trachea midline. No JVD or lymphadenopathy. CARDIOVASCULAR: Regular rate and rhythm without murmurs, gallops, or rubs. RESPIRATORY: Breath sounds equal bilaterally. No accessory muscle use. GASTROINTESTINAL: Abdomen soft, non-tender, nondistended. MUSCULOSKELETAL: No cyanosis, or edema. BACK: Nontender without obvious deformity. No CVA tenderness. Laboratory Tests Test 06/12/17 05:37 Blood Urea Nitrogen 16 MG/DL Creatinine 0.81 MG/DL Random Glucose 82 MG/DL Calcium Level 7.6 MG/DL Sodium Level 130 MEQ/L Potassium Level 3.6 MEQ/L Chloride Level 94 MEQ/L Carbon Dioxide Level 26.4 MEQ/L Anion Gap 10 MEQ/L Estimat Glomerular Filtration Rate 97 ML/MIN B-Type Natriuretic Peptide 158 PG/ML Assessment and Plan Problem List: (1) NSTEMI (non-ST elevated myocardial infarction) ICD Codes: I21.4 - Non-ST elevation (NSTEMI) myocardial infarction (2) Cardiomyopathy ICD Codes: I42.9 - Cardiomyopathy, unspecified (3) Hyponatremia ICD Codes: E87.1 - Hypo-osmolality and hyponatremia Status: Acute (4) Atrial fibrillation with RVR ICD Codes: I48.91 - Unspecified atrial fibrillation Status: Acute (5) Perforated bowel ICD Codes: K63.1 - Perforation of intestine (nontraumatic) Status: Acute Assessment and Plan 1.) NSTEMI/cardiomyopathy - will need rhc/lhc at some point due to persistent decompensated chf, nstemi, afib with uncontrolled rate, has recent perforated viscus so will try to postpone until 06/13/17 if patient consents; he currently is non committal 2.) Afib with rvr - consult Dr James, has low intravascular volume due to 3rd spacing from low albumin 3.) I d/w Dr Pilo Corona 06/11/17; patient is followed by Dr Yanick Agarwal, who is part of [facility], Dr Corona and/or a physician from [facility], will take over cardiology care as of 06/11/17; this note reflective of Jose Berry MD Jun 12, 2017 12:15
[2017-06-12] MEDS: ARTIFICIAL TEARS OPTH SOLN 15 ML BTL EACH EYE SCH ×2 (13:00→17:15)
[2017-06-12] MEDS: ENOXAPARIN SODIUM 40 MG/0.4 ML SYRINGE SQ SCH (19:55)
[2017-06-12] MEDS: FLUCONAZOLE 400 MG PREMIX BAG 200 ML IV SCH (23:23)
[2017-06-13] VITALS (14 sets, daily range): BP systolic 99–124; BP diastolic 53–59; PULSE 61–83; RESP 13–23; TEMP 97.6–98.2; O2SAT 88–93
[2017-06-13] MEDS: PIPERACIL-TAZO 3.375 GM PREMIX 50 ML IV SCH ×4 (00:41→17:21)
[2017-06-13] MEDS: MORPHINE SULFATE 4 MG/ML INJ IV PUSH PRN ×3 (01:51→11:33)
[2017-06-13 03:02] LABS: AUTOMATED NEUTROPHIL # 11.6 TH/MM3 (1.8-7.7); BASOPHIL # 0.1 TH/MM3 (0-0.2); BASOPHIL % 0.7 % (0.0-2.0); EOSINOPHIL # 0.2 TH/MM3 (0-0.4); EOSINOPHIL % 1.2 % (0.0-4.0); HEMATOCRIT 34.3 % (39.0-51.0); HEMOGLOBIN 12.1 GM/DL (13.0-17.0); LYMPH % 11.6 % (9.0-44.0); LYMPHOCYTE # 1.7 TH/MM3 (1.0-4.8); MEAN CELL VOLUME 93.1 FL (80.0-100.0); MEAN CORPUSCULAR HEMOGLOBIN 32.8 PG (27.0-34.0); MEAN CORPUSCULAR HGB CONC 35.2 % (32.0-36.0); MEAN PLATELET VOLUME 10.9 FL (7.0-11.0); MONO % 8.4 % (0.0-8.0); MONOCYTE # 1.3 TH/MM3 (0-0.9); NEUT % 78.1 % (16.0-70.0); PLATELET COUNT 275 TH/MM3 (150-450); RED BLOOD COUNT 3.69 MIL/MM3 (4.50-5.90); WHITE BLOOD COUNT 14.9 TH/MM3 (4.0-11.0)
[2017-06-13 03:13] LABS: INTERNATIONAL NORMALIZED RATIO 1.4 RATIO; PROTHROMBIN TIME - PATIENT 14.3 SEC (9.8-11.6)
[2017-06-13 03:27] LABS: ALBUMIN 1.4 GM/DL (3.4-5.0); ALT (GPT) 37 U/L (12-78); AST (GOT) 28 U/L (15-37); BICARBONATE 25.6 MEQ/L (21.0-32.0); BLOOD UREA NITROGEN 15 MG/DL (7-18); CALCIUM 7.6 MG/DL (8.5-10.1); CHLORIDE 93 MEQ/L (98-107); CREATININE 0.74 MG/DL (0.60-1.30); GLOMERULAR FILTRATION RATE 107 ML/MIN (>89); GLUCOSE,RANDOM 92 MG/DL (74-106); SODIUM (NA) 130 MEQ/L (136-145)
[2017-06-13 03:28] LABS: ALKALINE PHOSPHATASE 134 U/L (45-117); TOTAL BILIRUBIN ADULT 1.5 MG/DL (0.2-1.0); TOTAL PROTEIN 6.6 GM/DL (6.4-8.2)
[2017-06-13 03:54] LABS: BANDS 4 % (0-6); LYMPHOCYTES 8 % (9-44); METAMYELOCYTES 3 % (0-1); MONOCYTES 12 % (0-8); NEUTROPHIL # MANUAL DIFF 11.9 TH/MM3 (1.8-7.7); POLYS (SEG NEUTROPHILS) 73 % (16-70)
[2017-06-13] MEDS: metroNIDAZOLE 500 MG TAB PO SCH ×3 (06:34→20:24)
[2017-06-13] MEDS: FUROSEMIDE 40 MG/4 ML VIAL IV PUSH SCH (06:35)
[2017-06-13] MEDS: CHLORHEXIDINE 0.12% (ORAL KIT) 15 ML CUP MT SCH ×2 (08:00→20:25)
--- NOTE | 2017-06-13 10:03 | HHI.CCPN ---
Subjective Remarks/Hospital Course 62 year old male who presented to [facility] emergency department with 2 week history of abdominal pain. He had acute abdomen on presentation. He underwent CT abdomen and pelvis that demonstrated free air and free fluid. General surgery was consulted and he was taken emergently to the operating room. He also presented with acute kidney injury and potassium of 7.3 and I ordered medical management with calcium, bicarb, insulin, dextrose prior to going to OR. Dr. Valle states patient had a large perforated gastric ulcer for which he performed laparoscopic primary repair. Patient will be transitioned to [facility] and [facility] is consulted for postoperative critical care management. 06/06 1700 hours: Continual resuscitative efforts throughout the day, complicated by excessive fluid requirements and persistent hyperkalemia. Ongoing manipulations with bicarb, glucose, insulin, kayexalate, and calcium to control potassium levels. Punctate blue spots on feet appear embolic, cause of superficial ulcerations on calves less clear. Remains ventilator dependent. Hemodynamics still unstable. 06/07: Improved respiratory effort today. Will attempt weaning trials. Urine output remains adequate and hyperkalemia has finally resolved. Will leave nasogastric tube to low suction. 06/08: Extubated yesterday and breathing comfortably 24 hours later. Problems with hyperkalemia have resolved. Will throttle back on intravenous fluids given his poor ejection fraction. Will need to start diuretics shortly. Initiate unloading agents when rate is properly controlled and hypotension no longer problem. 06/09: He continues to breathe with acceptable comfort following extubation 2 days ago. General congestion and mobile secretions have cleared considerably. He is retaining fluid and given his fairly pronounced left ventricular dysfunction it is time to start twice daily diuretics and try to get rid of some of this excess fluid he accumulated during his resuscitation from peritonitis. In view of his poor LV, paroxysmal atrial fibrillation, and embolic-looking dots on his heels we should probably ask cardiology service to see him now that he is extubated and probably survivable. 06/10: Markedly improved overnight after diuresis. Gas exchange better. Cardiac cath anytime is OK with me. Will be forced to start full anticoagulation if he doesn't revert back to NSR permanently. Convert to biaxin/flagyl for another 10 days for possible H. pylori. 06/11: Good response to diuretics. Worsening gas exchange last night - will keep on [employer]. Continue aggressive diuresis. 06/12: B natruretic peptide declining nicely after aggressive diuretic therapy. His work of breathing remains excessive at times. Chest x-ray is clearing nicely but he remains labored. In the context of his poor left ventricular function we will continue to diuresis him. SUBJECTIVE: 06/13: Afebrile. Remains on 6 L nasal cannula. Objective Vital Signs Date Time Temp Pulse Resp B/P (MAP) Pulse Ox O2 Delivery O2 Flow Rate FiO2 06/13/17 08:13 92 Nasal Cannula 6.00 06/13/17 06:00 70 06/13/17 04:00 98.2 16 113/53 (73) 06/10/17 23:02 70 Intake and Output 06/13/17 06/13/17 06/14/17 08:00 16:00 00:00 Intake Total 1100 ml Output Total 1670 ml Balance -570 ml Result Diagram: 06/13/17 0245 06/13/17 0245 Other Results Microbiology Date/Time Source Procedure Growth Status 06/05/17 21:45 Blood Peripheral Aerobic Blood Culture - Final NO GROWTH IN 5 DAYS Complete 06/05/17 21:45 Blood Peripheral Anaerobic Blood Culture - Final NO GROWTH IN 5 DAYS Complete 06/06/17 13:00 Sputum Endotracheal Gram Stain - Final Complete 06/06/17 13:00 Sputum Culture - Final Enterobacter Aerogenes Complete Imaging Last Impressions Chest X-Ray 06/11/17 0000 Signed Impressions: Service Date/Time: Sunday, June 11, 2017 08:01 - CONCLUSION: 1. Interval extubation and removal of nasogastric tube since the prior study. 2. Hazy opacity remaining at the lung bases with probable left effusion. Pedro Pablo Sorensen MD Upper GI Series 06/09/17 0000 Signed Impressions: Service Date/Time: May 10:52 - CONCLUSION: No evidence of gastric leakage. Jv Barfield MD Chest CT 06/05/172102 Signed Impressions: Service Date/Time: Monday, June 05, 2017 21:58 - CONCLUSION: 1. Bilateral atelectasis. 2. 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 3. No aneurysm or dissection of the thoracic aorta. Paul Palencia MD Abdomen/Pelvis CT 06/05/172010 Signed Impressions: Service Date/Time: Monday, June 05, 2017 21:58 - CONCLUSION: 1. Free intraperitoneal air and fluid. The source is not fluid identified. 2. Bibasilar is a consolidation or atelectasis at the lung bases. 3. Small right renal calcifications which may represent nonobstructing renal stones. Paul Bernal MD Objective Remarks GENERAL: Chronically ill-appearing 62-year-old male. SKIN: Warm and dry. HEAD: Atraumatic. Normocephalic. EYES: Pupils equal and round, 2 mm and reactive bilaterally. No scleral icterus. ENT: No nasal bleeding or discharge. Mucous membranes pink and moist. NECK: Trachea midline. CARDIOVASCULAR: Normal sinus rhythm, no jugular venous distention. No murmurs rubs or gallops appreciated. RESPIRATORY: Clear bilateral breath sounds. Good air movement. Few new crackles bases. GASTROINTESTINAL: Abdomen less distended. Bowel sounds active. MUSCULOSKELETAL: Extremities without clubbing, cyanosis. There is trace+ bipedal edema. Feet are warm, edema persists but improved, and well perfused. NEUROLOGICAL: Conversant, oriented, hungry. Moves 4 limbs to command. Labored breathing persists. Week. Urinary Catheter: No Assessment to: Continue Vascular Central Line Catheter: No Assessment to: Continue A/P Assessment and Plan NEURO/PSYCH: NONDALTON Acetaminophen 650 mg p.o. every 6 hours as needed fever/pain 1 through 10 Morphine sulfate 40 mg IV every 3 hours as needed pain RESP: COPD/emphysema Postoperative respiratory failure secondary to volume overload and underlying parenchymal disease Obstructive sleep apnea Nasal cannula to maintain saturations greater than or equal to 92%. Currently on 6 L Incentive spirometry while while CT chest bibasilar atelectasis Albuterol/ipratropium aerosols scheduled every 6 hours with as needed albuterol every 2 hours as needed dyspnea Small bilateral pleural effusions have responded to diuretics. Repeat chest x-ray in a.m. 06/14. CV: Coronary artery disease Dilated ischemic cardiomyopathy, EF 30% Prior myocardial infarction Essential hypertension Hyperlipidemia Atrial fibrillation with RVR Remains on amiodarone 200 mg daily with carvedilol 6.2 mg twice daily and diltiazem 60 mg every 6 hours Evaluated by cardiology. Will need right heart cath/left heart cath at some point in the future.. ABIs close to normal for his age. Source of possible embolic debris in the lower extremities remains unclear, possibly paroxysmal atrial fibrillation. His episodes of atrial fibrillation at this point are not sustained. At most 10 minutes. Considering possible embolic debris in his feet it is probably best to consider long-term anticoagulation. Currently furosemide 40 mg IV daily 2D echocardiogram revealed EF of 30%. Apical and anterior akinesis. GI: Perforated peptic ulcer now status post laparoscopic primary repair by Dr. Valle 06/06/17 Hypoalbuminemia Elevated total bilirubin Status post left hip repair with perforated gastric ulcer with Silverio patch secondary to severe sepsis/acute abdomen with perforated anterior gastric ulcer with a #19 Garrett two-point Treat for H pylori with clarithromycin/amoxicillin/PPI 14 days (presently on Pipracil/to the back postoperatively) -> covert to metronidazole/clarithromycin for 10 additional days. Pantoprazole 40 mg IV twice daily Regular diet per surgery /RENAL: Currently furosemide 40 mg IV twice daily Monitor urine output Accurate I's and O ID: Severe sepsis Left lower leg cellulitis Enterobacter aeruginosa pneumonia H. pylori Currently on fluconazole, clarithromycin, piperacillin/tazobactam and metronidazole Complete H. pylori for 14 days (clarithromycin, amoxicillin currently piperacillin/tazobactam) UA negative Chest x-ray with decreasing right lower lobe opacity. Pertinent cultures 06/06 -sputum --Enterobacter aerogenes 06/05 -blood cultures 2 -no growth HEME: Leukocytosis Normocytic anemia Monitor CBC and follow trends ENDO: Euglycemic. TSH is currently 0.144. Recheck TSH, free T3 and T4 in a.m. 4/24 Sliding scale insulin if indicated to maintain euglycemia FEN: Hyponatremia Hypopotassemia Replace electrolytes as clinically indicated PROPH: No SCDs for now due to concern for PAD. On enoxaparin 40 mg subcu daily. Pantoprazole 40 mg IV twice daily ACCESS: Peripheral IV providing adequate access at this time Level 2 follow-up Brendon Bridges MD Jun 13, 2017 10:03
[2017-06-13] MEDS: DOCUSATE SODIUM 50 MG/SENNA 8.6 MG TAB PO SCH ×2 (10:18→20:24)
[2017-06-13] MEDS: AMIODARONE 200 MG TAB PO SCH (10:18)
[2017-06-13] MEDS: PANTOPRAZOLE SODIUM 40 MG VIAL IV PUSH SCH ×2 (10:18→20:25)
[2017-06-13] MEDS: DILTIAZEM HCL 60 MG TAB PO SCH ×4 (10:18→20:24)
[2017-06-13] MEDS: CLARITHROMYCIN 500 MG TAB PO SCH ×2 (10:18→20:23)
[2017-06-13] MEDS: SODIUM CHLORIDE 0.9% FLUSH 10 ML FLUSH IV FLUSH SCH ×2 (10:19→20:25)
[2017-06-13] MEDS: CARVEDILOL 6.25 MG TAB PO SCH ×2 (10:19→20:23)
[2017-06-13] MEDS: ARTIFICIAL TEARS OPTH SOLN 15 ML BTL EACH EYE SCH ×3 (10:20→17:21)
[2017-06-13] MEDS: RESP: ALBUTEROL 2.5 MG/IPRATROPIUM 0.5 MG NEB (SCH) NEB ×3 (11:28→21:15)
[2017-06-13] MEDS ORDERED: RESP: ALBUTEROL 2.5 MG/IPRATROPIUM 0.5 MG NEB (SCH) NEB (12:00)
--- NOTE | 2017-06-13 14:55 | HHI.PR ---
Subjective Subjective Notes Resting in bed No issues Wants to get to chair shortly Objective Vitals/I&O Vital Signs Date Time Temp Pulse Resp B/P (MAP) Pulse Ox O2 Delivery O2 Flow Rate FiO2 06/13/17 14:00 70 06/13/17 12:00 97.6 18 124/56 (78) 88 06/13/17 08:13 Nasal Cannula 6.00 06/10/17 23:02 70 Labs Laboratory Tests Test 06/13/17 02:45 White Blood Count 14.9 Red Blood Count 3.69 Hemoglobin 12.1 Hematocrit 34.3 Mean Corpuscular Volume 93.1 Mean Corpuscular Hemoglobin 32.8 Mean Corpuscular Hemoglobin Concent 35.2 Red Cell Distribution Width 14.0 Platelet Count 275 Mean Platelet Volume 10.9 Neutrophils (%) (Auto) 78.1 Lymphocytes (%) (Auto) 11.6 Monocytes (%) (Auto) 8.4 Eosinophils (%) (Auto) 1.2 Basophils (%) (Auto) 0.7 Neutrophils # (Auto) 11.6 Lymphocytes # (Auto) 1.7 Monocytes # (Auto) 1.3 Eosinophils # (Auto) 0.2 Basophils # (Auto) 0.1 CBC Comment AUTO DIFF Differential Total Cells Counted 100 Neutrophils % (Manual) 73 Band Neutrophils % 4 Lymphocytes % 8 Monocytes % 12 Neutrophils # (Manual) 11.9 Metamyelocytes 3 Differential Comment FINAL DIFF MANUAL Atypical Lymphocytes Platelet Estimate NORMAL Platelet Morphology Comment NORMAL Red Cell Morphology Comment NORMAL Prothrombin Time 14.3 Prothromb Time International Ratio 1.4 Blood Urea Nitrogen 15 Creatinine 0.74 Random Glucose 92 Total Protein 6.6 Albumin 1.4 Calcium Level 7.6 Alkaline Phosphatase 134 Aspartate Amino Transf (AST/SGOT) 28 Alanine Aminotransferase (ALT/SGPT) 37 Total Bilirubin 1.5 Sodium Level 130 Potassium Level 3.4 Chloride Level 93 Carbon Dioxide Level 25.6 Anion Gap 11 Estimat Glomerular Filtration Rate 107 Date/Time Source Procedure Growth Status 06/05/17 21:45 Blood Peripheral Aerobic Blood Culture - Final NO GROWTH IN 5 DAYS Complete 06/05/17 21:45 Blood Peripheral Anaerobic Blood Culture - Final NO GROWTH IN 5 DAYS Complete 06/06/17 13:00 Sputum Endotracheal Gram Stain - Final Complete 06/06/17 13:00 Sputum Culture - Final Enterobacter Aerogenes Complete Cardiovascular: Regular Lungs: Clear Abdomen: Other (lap sites are c/d/i; GLENN with serous and very faint tint of bile ), Post-op tenderness Narrative Exam LEFT calf--- chronic appearing wound 2+ pitting edema in BLE; small dark spots on planter surface of foot A/P Assessment and Plan 62 year old male POD8 dx lap, lap modified marcos patch, washout for perforated viscus/large anterior gastric ulcer -HR appears better controlled -Regular diet -Continue to monitor GLENN drain -Stable on NC -Continue Zosyn/Diflucan -Continue coverage for H. Pylori -PT following --OOB as heart rate allows Attending Statement patient seen at bedside continue to improve abx ppi pain control avoid nsaids Attestation The exam, history, and the medical decision-making described in the above note were completed with the assistance of the mid-level provider. I reviewed and agree with the findings presented. I attest that I had a [id number] encounter with the patient on the same day, and personally performed and documented my assessment and findings in the medical record. Lana Otero/First Henny KING Jun 13, 2017 14:55 Vijay Valle MD Jun 20, 2017 21:55
[2017-06-13] MEDS: POTASSIUM CHLORIDE 20 MEQ CONTROLLED RELEASE TAB PO SCH ×2 (17:21→20:23)
[2017-06-13] MEDS: BUDESONIDE-FORMOTEROL 160/4.5 MCG INHALER INH SCH ×2 (20:23→20:24)
[2017-06-13] MEDS: CARBAMIDE PEROXIDE 6.5% OTIC SOLN 15 ML BTL EACH EAR SCH (20:24)
[2017-06-13] MEDS: ENOXAPARIN SODIUM 40 MG/0.4 ML SYRINGE SQ SCH (20:25)
[2017-06-13] MEDS: FLUCONAZOLE 400 MG PREMIX BAG 200 ML IV SCH (23:26)
[2017-06-14] VITALS (14 sets, daily range): BP systolic 107–131; BP diastolic 54–71; PULSE 67–90; RESP 14–24; TEMP 97.8–98.4; O2SAT 90–95
[2017-06-14] MEDS: PIPERACIL-TAZO 3.375 GM PREMIX 50 ML IV SCH ×4 (01:39→18:09)
[2017-06-14] MEDS: CHLORHEXIDINE GLUCONATE 2 % 1 PACK (2 CLOTHS) TOP SCH (04:00)
[2017-06-14] MEDS: metroNIDAZOLE 500 MG TAB PO SCH ×3 (05:31→21:22)
[2017-06-14] MEDS: FUROSEMIDE 40 MG/4 ML VIAL IV PUSH SCH (06:33)
[2017-06-14 06:48] LABS: AUTOMATED NEUTROPHIL # 11.3 TH/MM3 (1.8-7.7); BASOPHIL # 0.1 TH/MM3 (0-0.2); BASOPHIL % 0.6 % (0.0-2.0); EOSINOPHIL # 0.2 TH/MM3 (0-0.4); EOSINOPHIL % 1.3 % (0.0-4.0); HEMOGLOBIN 12.2 GM/DL (13.0-17.0); LYMPH % 11.9 % (9.0-44.0); LYMPHOCYTE # 1.7 TH/MM3 (1.0-4.8); MEAN CELL VOLUME 93.6 FL (80.0-100.0); MEAN CORPUSCULAR HEMOGLOBIN 31.6 PG (27.0-34.0); MEAN CORPUSCULAR HGB CONC 33.8 % (32.0-36.0); MONO % 9.3 % (0.0-8.0); MONOCYTE # 1.4 TH/MM3 (0-0.9); NEUT % 76.9 % (16.0-70.0); PLATELET COUNT 302 TH/MM3 (150-450); RED BLOOD COUNT 3.85 MIL/MM3 (4.50-5.90); RED CELL DISTRIBUTION WIDTH 14.4 % (11.6-17.2); WHITE BLOOD COUNT 14.6 TH/MM3 (4.0-11.0)
[2017-06-14 07:18] LABS: ALBUMIN 1.3 GM/DL (3.4-5.0); BICARBONATE 23.5 MEQ/L (21.0-32.0); CALCIUM 7.3 MG/DL (8.5-10.1); CALCIUM-PROTEIN CORRECTED 7.7 MG/DL (8.5-10.1); CREATININE 0.76 MG/DL (0.60-1.30); FREE T3 1.19 PG/ML (2.18-3.98); FREE T4 1.11 NG/DL (0.76-1.46); MAGNESIUM 1.9 MG/DL (1.5-2.5); PHOSPHORUS 1.9 MG/DL (2.5-4.9); TOTAL PROTEIN 6.3 GM/DL (6.4-8.2)
[2017-06-14] MEDS: CHLORHEXIDINE 0.12% (ORAL KIT) 15 ML CUP MT SCH ×2 (08:00→20:00)
[2017-06-14] MEDS: RESP: ALBUTEROL 2.5 MG/IPRATROPIUM 0.5 MG NEB (SCH) NEB ×4 (08:36→20:26)
[2017-06-14] MEDS: ARTIFICIAL TEARS OPTH SOLN 15 ML BTL EACH EYE SCH ×3 (08:41→18:00)
[2017-06-14] MEDS: SODIUM CHLORIDE 0.9% FLUSH 10 ML FLUSH IV FLUSH SCH ×2 (08:41→21:22)
[2017-06-14] MEDS: BUDESONIDE-FORMOTEROL 160/4.5 MCG INHALER INH SCH ×4 (08:41→21:21)
[2017-06-14] MEDS: CARBAMIDE PEROXIDE 6.5% OTIC SOLN 15 ML BTL EACH EAR SCH ×2 (08:41→21:21)
[2017-06-14] MEDS: CARVEDILOL 6.25 MG TAB PO SCH ×2 (08:48→21:22)
[2017-06-14] MEDS: POTASSIUM CHLORIDE 20 MEQ CONTROLLED RELEASE TAB PO SCH (08:48)
[2017-06-14] MEDS: CLARITHROMYCIN 500 MG TAB PO SCH ×2 (08:48→21:22)
[2017-06-14] MEDS: DOCUSATE SODIUM 50 MG/SENNA 8.6 MG TAB PO SCH ×2 (08:48→21:22)
[2017-06-14] MEDS: PANTOPRAZOLE SODIUM 40 MG VIAL IV PUSH SCH (08:49)
[2017-06-14] MEDS: AMIODARONE 200 MG TAB PO SCH (08:49)
[2017-06-14] MEDS: DILTIAZEM HCL 60 MG TAB PO SCH ×4 (08:49→21:22)
[2017-06-14 09:37] LABS: BANDS 7 % (0-6); LYMPHOCYTES 10 % (9-44); METAMYELOCYTES 2 % (0-1); MONOCYTES 9 % (0-8); MYELOCYTES 1 % (0-0); NEUTROPHIL # MANUAL DIFF 11.2 TH/MM3 (1.8-7.7); POLYS (SEG NEUTROPHILS) 67 % (16-70)
[2017-06-14] MEDS: PANTOPRAZOLE SOD 40 MG DELAYED RELEASE TAB PO SCH ×2 (12:17→21:22)
--- NOTE | 2017-06-14 14:25 | HHI.PR ---
Subjective Subjective Notes Resting in bed No issues Pain controlled Objective Vitals/I&O Vital Signs Date Time Temp Pulse Resp B/P (MAP) Pulse Ox O2 Delivery O2 Flow Rate FiO2 06/14/17 12:00 78 06/14/17 12:00 98.2 24 131/71 (91) 95 06/14/17 08:37 Nasal Cannula 5.00 06/10/17 23:02 70 Labs Laboratory Tests Test 06/14/17 06:24 White Blood Count 14.6 Red Blood Count 3.85 Hemoglobin 12.2 Hematocrit 36.0 Mean Corpuscular Volume 93.6 Mean Corpuscular Hemoglobin 31.6 Mean Corpuscular Hemoglobin Concent 33.8 Red Cell Distribution Width 14.4 Platelet Count 302 Mean Platelet Volume 11.0 Neutrophils (%) (Auto) 76.9 Lymphocytes (%) (Auto) 11.9 Monocytes (%) (Auto) 9.3 Eosinophils (%) (Auto) 1.3 Basophils (%) (Auto) 0.6 Neutrophils # (Auto) 11.3 Lymphocytes # (Auto) 1.7 Monocytes # (Auto) 1.4 Eosinophils # (Auto) 0.2 Basophils # (Auto) 0.1 CBC Comment AUTO DIFF Differential Total Cells Counted 100 Neutrophils % (Manual) 67 Band Neutrophils % 7 Lymphocytes % 10 Monocytes % 9 Eosinophils % 4 Neutrophils # (Manual) 11.2 Metamyelocytes 2 Myelocytes 1 Differential Comment FINAL DIFF MANUAL Platelet Estimate NORMAL Platelet Morphology Comment NORMAL Blood Urea Nitrogen 13 Creatinine 0.76 Random Glucose 95 Total Protein 6.3 Albumin 1.3 Calcium Level 7.3 Phosphorus Level 1.9 Magnesium Level 1.9 Alkaline Phosphatase 136 Aspartate Amino Transf (AST/SGOT) 35 Alanine Aminotransferase (ALT/SGPT) 40 Total Bilirubin 1.0 Sodium Level 130 Potassium Level 3.5 Chloride Level 96 Carbon Dioxide Level 23.5 Anion Gap 11 Estimat Glomerular Filtration Rate 104 Protein Corrected Calcium 7.7 Ammonia 21 Amylase Level 70 Lipase 267 Free Thyroxine 1.11 Free Triiodothyronine (T3) pg/dL 1.19 Thyroid Stimulating Hormone 3rd Gen 2.870 Random Cortisol 11.2 Date/Time Source Procedure Growth Status 06/05/17 21:45 Blood Peripheral Aerobic Blood Culture - Final NO GROWTH IN 5 DAYS Complete 06/05/17 21:45 Blood Peripheral Anaerobic Blood Culture - Final NO GROWTH IN 5 DAYS Complete 06/06/17 13:00 Sputum Endotracheal Gram Stain - Final Complete 06/06/17 13:00 Sputum Culture - Final Enterobacter Aerogenes Complete Cardiovascular: Regular Lungs: Clear Abdomen: Other (lap sites c/d/i; soft non tender; GLENN in place with serous fluid ) Extremities: Other Narrative Exam LEFT calf--- chronic appearing wound 2+ pitting edema in BLE; small dark spots on planter surface of foot A/P Assessment and Plan 62 year old male POD9 dx lap, lap modified marcos patch, washout for perforated viscus/large anterior gastric ulcer -HR better controlled -Regular diet -Continue to monitor GLENN drain -Stable on NC -Continue Zosyn/Diflucan -Continue coverage for H. Pylori -PT following --OOB as heart rate allows Attending Statement patient seen at bedside ambulate pain control abx advance diet Attestation The exam, history, and the medical decision-making described in the above note were completed with the assistance of the mid-level provider. I reviewed and agree with the findings presented. I attest that I had a [id number] encounter with the patient on the same day, and personally performed and documented my assessment and findings in the medical record. Lana Otero/Supervisor [employer] CHRISTINE Jun 14, 2017 14:25 Vijay Valle MD Jun 20, 2017 21:59
--- NOTE | 2017-06-14 16:58 | HHI.PR ---
Subjective Remarks tolerating po well, no nausea or vomiting passing out lots of flatus telemetry- SR Objective Vitals Vital Signs Date Time Temp Pulse Resp B/P (MAP) Pulse Ox O2 Delivery O2 Flow Rate FiO2 06/14/17 16:00 68 06/14/17 16:00 97.9 68 18 128/57 (80) 90 06/14/17 14:00 67 06/14/17 12:00 78 06/14/17 12:00 98.2 80 24 131/71 (91) 95 06/14/17 10:00 90 06/14/17 08:37 92 Nasal Cannula 5.00 06/14/17 08:00 97.8 75 18 126/59 (81) 92 06/14/17 08:00 75 06/14/17 07:00 92 Nasal Cannula 6.00 Humidified 06/14/17 06:00 70 06/14/17 04:00 98.1 70 22 115/58 (77) 91 06/14/17 04:00 70 06/14/17 02:00 70 06/14/17 00:00 97.8 70 23 116/58 (77) 90 06/14/17 00:00 70 06/13/17 22:00 72 06/13/17 21:16 90 Nasal Cannula 5.00 06/13/17 20:00 72 06/13/17 20:00 90 Nasal Cannula 6.00 Humidified 06/13/17 20:00 97.8 72 23 108/57 (74) 90 06/13/17 18:00 72 I/O 06/13/17 06/13/17 06/13/17 06/14/17 06/14/17 06/14/17 07:00 15:00 23:00 07:00 15:00 23:00 Intake Total 1100 ml 1030 ml 1210 ml Output Total 1670 ml 2810 ml 1330 ml Balance -570 ml -1780 ml -120 ml Intake Oral 800 ml 880 ml 960 ml IV Total 300 ml 150 ml 250 ml Output Urine Total 1650 ml 2800 ml 1300 ml Drainage Total 20 ml 10 ml 30 ml # Bowel Movements 0 1 0 Result Diagram: 06/14/17 0624 06/14/17 0624 Imaging Last Impressions Chest X-Ray 06/11/17 0000 Signed Impressions: Service Date/Time: Sunday, June 11, 2017 08:01 - CONCLUSION: 1. Interval extubation and removal of nasogastric tube since the prior study. 2. Hazy opacity remaining at the lung bases with probable left effusion. Pedro Pablo Sorensen MD Upper GI Series 06/09/17 0000 Signed Impressions: Service Date/Time: May 10:52 - CONCLUSION: No evidence of gastric leakage. Jv Barfield MD Chest CT 06/05/172102 Signed Impressions: Service Date/Time: Monday, June 05, 2017 21:58 - CONCLUSION: 1. Bilateral atelectasis. 2. 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 3. No aneurysm or dissection of the thoracic aorta. Paul Palencia MD Abdomen/Pelvis CT 06/05/172010 Signed Impressions: Service Date/Time: Monday, June 05, 2017 21:58 - CONCLUSION: 1. Free intraperitoneal air and fluid. The source is not fluid identified. 2. Bibasilar is a consolidation or atelectasis at the lung bases. 3. Small right renal calcifications which may represent nonobstructing renal stones. Paul Bernal MD Objective Remarks awake and alert, oriented x 3 anicteric lungs- decrease breath sounds, no rales, no wheezes regular rhythm abdomen- soft good bowel sounds, no guarding, lap incison- no erythema carson in place extremities no edema' left LE- left big toe - base/ dorsal aspect with superficial blister/bullae- looks loike old blood fluid left ames - necrotic dry black eschar right LE- lateral aspect mulitple superficial subcutaneous bullae/blister , erythema good pulses peripherally Procedures 06/06 1. Diagnostic laparoscopy. 2. Laparoscopic repair of perforated gastric ulcer using modified Silverio patch. 3. Laparoscopic washout. Urinary Catheter: Yes Assessment to: Continue Carson insert reason: ICU Pt Getting Diuretics A/P Assessment and Plan 62 year old male POD9 dx lap, lap modified silverio patch, washout for perforated viscus/large anterior gastric ulcer Perforated peptic ulcer now status post laparoscopic primary repair by Dr. Valle 06/06/17 Hypoalbuminemia Elevated total bilirubin Status post left hip repair with perforated gastric ulcer with Silverio patch secondary to severe sepsis/acute abdomen with perforated anterior gastric ulcer with a #19 Garrett two-point Treat for H pylori with clarithromycin/amoxicillin/PPI 14 days (presently on Pipracil/to the back postoperatively) -> covert to metronidazole/clarithromycin for 10 additional days. Pantoprazole 40 mg IV twice daily- change to po Regular diet per surgery COPD/emphysema Postoperative respiratory failure secondary to volume overload and underlying parenchymal disease Obstructive sleep apnea Nasal cannula to maintain saturations greater than or equal to 92%. Currently on 6 L Incentive spirometry while while CT chest bibasilar atelectasis Albuterol/ipratropium aerosols scheduled every 6 hours with as needed albuterol every 2 hours as needed dyspnea Small bilateral pleural effusions have responded to diuretics. Repeat chest x-ray in a.m. 06/14. Coronary artery disease Dilated ischemic cardiomyopathy, EF 30% Prior myocardial infarction Essential hypertension Hyperlipidemia Paroxysmal Atrial fibrillation with RVR- now rate controlled in SR Remains on amiodarone 200 mg daily with carvedilol 6.2 mg twice daily and diltiazem 60 mg every 6 hours Evaluated by cardiology. Will need right heart cath/left heart cath at some point in the future.. ABIs close to normal for his age. Source of possible embolic debris in the lower extremities remains unclear, possibly paroxysmal atrial fibrillation. His episodes of atrial fibrillation at this point are not sustained. At most 10 minutes. Considering possible embolic debris in his feet it is probably best to consider long-term anticoagulation. Currently furosemide 40 mg IV daily 2D echocardiogram revealed EF of 30%. Apical and anterior akinesis. Monitor urine output Accurate I's and O ID: Severe sepsis Left lower leg cellulitis Enterobacter aeruginosa pneumonia H. pylori Currently on fluconazole, piperacillin/tazobactam and metronidazole started 06/06 Complete H. pylori for 14 days (clarithromycin, amoxicillin, flagyl) started UA negative Chest x-ray with decreasing right lower lobe opacity. wound care team consult Pertinent cultures 06/06 -sputum --Enterobacter aerogenes 06/05 -blood cultures 2 -no growth HEME: Leukocytosis Normocytic anemia Monitor CBC and follow trends ENDO: Euglycemic. TSH is currently 0.144. Recheck TSH, free T3 and T4 in a.m. 06/14 Sliding scale insulin if indicated to maintain euglycemia FEN: Hyponatremia Hypopotassemia Replace electrolytes as clinically indicated PROPH: No SCDs for now due to concern for PAD. On enoxaparin 40 mg subcu daily. Pantoprazole 40 mg po bid -HR better controlled -Regular diet -Stable on NC -Continue Zosyn/Diflucan -Continue coverage for H. Pylori -PT following --OOB as heart rate allows Transfer to med/surgical floor PT daily AGUSTIN nairorrow - Marie Weaver MD Jun 14, 2017 16:58
[2017-06-14] MEDS ORDERED: POTASSIUM CHLORIDE 10 MEQ CONTROLLED RELEASE TAB PO ONE (19:00)
[2017-06-14] MEDS: ENOXAPARIN SODIUM 40 MG/0.4 ML SYRINGE SQ SCH (21:22)
[2017-06-15] VITALS (11 sets, daily range): BP systolic 107–128; BP diastolic 57–64; PULSE 69–86; RESP 16–24; TEMP 97.9–98.9; O2SAT 90–95
[2017-06-15] MEDS: PIPERACIL-TAZO 3.375 GM PREMIX 50 ML IV SCH ×4 (00:01→17:52)
[2017-06-15] MEDS: FLUCONAZOLE 400 MG PREMIX BAG 200 ML IV SCH ×2 (00:01)
[2017-06-15] MEDS: CHLORHEXIDINE GLUCONATE 2 % 1 PACK (2 CLOTHS) TOP SCH (00:02)
[2017-06-15] MEDS: ZOLPIDEM TARTRATE 5 MG TAB PO PRN (02:16)
[2017-06-15] MEDS: metroNIDAZOLE 500 MG TAB PO SCH ×3 (05:49→21:22)
[2017-06-15] MEDS: FUROSEMIDE 40 MG/4 ML VIAL IV PUSH SCH (06:54)
[2017-06-15] MEDS: SODIUM CHLORIDE 0.9% FLUSH 10 ML FLUSH IV FLUSH PRN (06:54)
[2017-06-15 07:23] LABS: CALCIUM 7.9 MG/DL (8.5-10.1); CREATININE 0.78 MG/DL (0.60-1.30)
[2017-06-15] MEDS: CHLORHEXIDINE 0.12% (ORAL KIT) 15 ML CUP MT SCH ×2 (08:00→20:00)
[2017-06-15] MEDS: ARTIFICIAL TEARS OPTH SOLN 15 ML BTL EACH EYE SCH ×3 (09:00→17:53)
[2017-06-15] MEDS: CARBAMIDE PEROXIDE 6.5% OTIC SOLN 15 ML BTL EACH EAR SCH ×2 (09:00→21:23)
[2017-06-15] MEDS: BUDESONIDE-FORMOTEROL 160/4.5 MCG INHALER INH SCH ×3 (09:00→21:23)
[2017-06-15] MEDS: RESP: ALBUTEROL 2.5 MG/IPRATROPIUM 0.5 MG NEB (SCH) NEB ×4 (09:45→21:04)
[2017-06-15] MEDS: DOCUSATE SODIUM 50 MG/SENNA 8.6 MG TAB PO SCH ×2 (09:46→21:22)
[2017-06-15] MEDS: AMIODARONE 200 MG TAB PO SCH (09:46)
[2017-06-15] MEDS: CLARITHROMYCIN 500 MG TAB PO SCH ×2 (09:46→21:22)
[2017-06-15] MEDS: PANTOPRAZOLE SOD 40 MG DELAYED RELEASE TAB PO SCH ×2 (09:46→21:22)
[2017-06-15] MEDS: CARVEDILOL 6.25 MG TAB PO SCH ×2 (09:46→21:22)
[2017-06-15] MEDS: SODIUM CHLORIDE 0.9% FLUSH 10 ML FLUSH IV FLUSH SCH ×2 (09:47→21:00)
[2017-06-15] MEDS: DILTIAZEM HCL 60 MG TAB PO SCH ×4 (09:49→21:22)
--- NOTE | 2017-06-15 14:05 | PD.WCN.NOT ---
Wound Consult Description: Received consult from Doctor Weaver for wound management of bilateral LE wounds blisters/bullae. Communicated with: SARAH Miller and Doctor Weaver Recommendation: Please consult podiatry for BLE for evaluation 1.Please leave areas of intact black eschar to LLE and intact bullae on BLE open to air and spray with skin barrier film spray BID until seen by podiatry 2. Please cleanse open wound to R dorsal foot with normal saline or wound cleanser and pat dry. Apply Maxorb extra AG over wound bed and cover with dry 4x4 gauze. Secure dressing with rolled gauze, tape and stockinette. Change dressing every 2 days or as needed for saturation or dislodgement or until seen by podiatry 3.Please leave blood filled blister to L great toe open to air and spray with Cavilon skin barrier film BID until seen by podiatry. Additional Information: Patient seen on 3 for evaluation of wound management of bilateral LE wounds blisters/bullae. Removed blankets covering patient's BLE to reveal four areas of dry intact eschar and ~8 intact pustules on LLE. Largest area of eschar measures 3.9cm x 2.5cm x eschar. L great toe presents with blood filled blister that measures 2.1cm x 5 cm. halo of erythema is noted around largest area of eschar on LLE. RLE presents with ~4 intact pustules..Bilateral plantar feet present with diffuse small blood filled blisters ~0.3cmx 0.3cm R foot noted with absorbent Tegaderm in place to R dorsal foot that is leaking. Removed saturated dressing to reveal partially unroofed bulla with loose un approximated skin flap from 6 to 12 o'clock. Wound presents with 100% red non granulation tissue and moderate sero-sanguinous drainage that is thin. Periwound is erythematous circumferentially extending out ~4cm from wound bed. Unroofed portion of bulla measures 2cm x 2cm x ~<0.1cm Cleansed open wound with normal saline. Wound culture was then obtained. Applied Maxorb extra AG just over wound bed and secured dressing with dry 4x4 gauze pads, rolled gauze, tape and stockinette. Podiatry recommended to evaluate. Patient can't give clear history as to how wounds were caused or when lesions first appeared. Sarah Mack [facility] Jun 15, 2017 14:05
[2017-06-15] MEDS ORDERED: MORPHINE SULFATE 4 MG/ML INJ IV PUSH PRN (15:30)
--- NOTE | 2017-06-15 15:35 | HHI.PR ---
Subjective Subjective Notes Resting in bed No issues Needs help with his tray Objective Vitals/I&O Vital Signs Date Time Temp Pulse Resp B/P (MAP) Pulse Ox O2 Delivery O2 Flow Rate FiO2 06/15/17 11:34 92 21 06/15/17 08:00 98.8 75 16 113/58 (76) 06/15/17 07:00 Room Air 06/15/17 05:00 6.00 Labs Laboratory Tests Test 06/15/17 06:30 Blood Urea Nitrogen 12 Creatinine 0.78 Random Glucose 95 Calcium Level 7.9 Sodium Level 127 Potassium Level 3.9 Chloride Level 95 Carbon Dioxide Level 22.0 Anion Gap 10 Estimat Glomerular Filtration Rate 101 Date/Time Source Procedure Growth Status 06/05/17 21:45 Blood Peripheral Aerobic Blood Culture - Final NO GROWTH IN 5 DAYS Complete 06/05/17 21:45 Blood Peripheral Anaerobic Blood Culture - Final NO GROWTH IN 5 DAYS Complete 06/06/17 13:00 Sputum Endotracheal Gram Stain - Final Complete 06/06/17 13:00 Sputum Culture - Final Enterobacter Aerogenes Complete Cardiovascular: Regular Lungs: Clear Abdomen: Other (lap sites c/d/i; GLENN with serous drainage ) Narrative Exam LEFT calf--- chronic appearing wound 2+ pitting edema in BLE; small dark spots on planter surface of foot A/P Assessment and Plan 62 year old male POD10 dx lap, lap modified marcos patch, washout for perforated viscus/large anterior gastric ulcer -HR continues to be controlled -Regular diet -DC GLENN Drain -Stable on NC -Continue Zosyn/Diflucan -Continue coverage for H. Pylori -PT following --OOB as heart rate allows Attending Statement patient seen at bedside significant improvement remove drain continue medical mgnt Attestation The exam, history, and the medical decision-making described in the above note were completed with the assistance of the mid-level provider. I reviewed and agree with the findings presented. I attest that I had a [id number] encounter with the patient on the same day, and personally performed and documented my assessment and findings in the medical record. Lana Otero/First Henny COLONP Jun 15, 2017 15:35 Vijay Valle MD June 22, 2017 09:21
--- NOTE | 2017-06-15 15:38 | HHI.PR ---
Subjective Remarks telemetry- sinus with occasional PVCs0 rate 70s feels better getting out of bed to chair up with walker with PT Objective Vitals Vital Signs Date Time Temp Pulse Resp B/P (MAP) Pulse Ox O2 Delivery O2 Flow Rate FiO2 06/15/17 11:34 92 21 06/15/17 08:00 98.8 75 16 113/58 (76) 94 06/15/17 08:00 75 06/15/17 07:00 92 Room Air 06/15/17 06:00 72 06/15/17 05:00 92 Nasal Cannula 6.00 06/15/17 04:00 69 06/15/17 04:00 98.4 69 17 107/57 (74) 93 06/15/17 02:00 86 06/15/17 00:00 75 06/15/17 00:00 97.9 75 19 120/59 (79) 91 06/14/17 22:00 73 06/14/17 20:32 94 Nasal Cannula 4.00 06/14/17 20:00 73 06/14/17 20:00 98.4 73 14 107/54 (71) 90 06/14/17 19:00 92 Nasal Cannula 3.00 Humidified 06/14/17 18:00 71 06/14/17 16:00 68 06/14/17 16:00 97.9 68 18 128/57 (80) 90 I/O 06/14/17 06/14/17 06/14/17 06/15/17 06/15/17 06/15/17 07:00 15:00 23:00 07:00 15:00 23:00 Intake Total 1210 ml 1100 ml 1550 ml Output Total 1330 ml 2400 ml 2110 ml Balance -120 ml -1300 ml -560 ml Intake Oral 960 ml 1000 ml 1200 ml IV Total 250 ml 100 ml 350 ml Output Urine Total 1300 ml 2400 ml 2100 ml Drainage Total 30 ml 10 ml # Bowel Movements 0 0 Result Diagram: 06/14/17 0624 06/15/17 0630 Imaging Last Impressions Chest X-Ray 06/11/17 0000 Signed Impressions: Service Date/Time: Sunday, June 11, 2017 08:01 - CONCLUSION: 1. Interval extubation and removal of nasogastric tube since the prior study. 2. Hazy opacity remaining at the lung bases with probable left effusion. Pedro Pablo Sorensen MD Upper GI Series 06/09/17 0000 Signed Impressions: Service Date/Time: May 10:52 - CONCLUSION: No evidence of gastric leakage. Jv Barfield MD Chest CT 06/05/172102 Signed Impressions: Service Date/Time: Monday, June 05, 2017 21:58 - CONCLUSION: 1. Bilateral atelectasis. 2. 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 3. No aneurysm or dissection of the thoracic aorta. Paul Palencia MD Abdomen/Pelvis CT 06/05/172010 Signed Impressions: Service Date/Time: Monday, June 05, 2017 21:58 - CONCLUSION: 1. Free intraperitoneal air and fluid. The source is not fluid identified. 2. Bibasilar is a consolidation or atelectasis at the lung bases. 3. Small right renal calcifications which may represent nonobstructing renal stones. Paul Bernal MD Objective Remarks awake and alert, oriented x 3 anicteric lungs- decrease breath sounds, no rales, no wheezes regular rhythm abdomen- soft good bowel sounds, no guarding, lap incison- no erythema carson in place extremities no edema' left LE- left big toe - base/ dorsal aspect with superficial blister/bullae- looks loke old blood fluid left ames - necrotic dry black eschar right LE- lateral aspect multiple superficial subcutaneous bullae/blister , erythema good pulses peripherally Procedures 06/06 1. Diagnostic laparoscopy. 2. Laparoscopic repair of perforated gastric ulcer using modified Silverio patch. 3. Laparoscopic washout. Urinary Catheter: No Assessment to: Remove Date of Removal: Jun 15, 2017 A/P Assessment and Plan 62 year old male POD9 dx lap, lap modified silverio patch, washout for perforated viscus/large anterior gastric ulcer Perforated peptic ulcer now status post laparoscopic primary repair by Dr. Valle 06/06/17 Hypoalbuminemia Elevated total bilirubin Status post left hip repair with perforated gastric ulcer with Silverio patch secondary to severe sepsis/acute abdomen with perforated anterior gastric ulcer with a #19 Garrett two-point Treat for H pylori with clarithromycin/amoxicillin/PPI 14 days (presently on Pipracil/to the back postoperatively) -> covert to metronidazole/clarithromycin for 10 additional days. Pantoprazole 40 mg po bid Regular diet per surgery COPD/emphysema Postoperative respiratory failure secondary to volume overload and underlying parenchymal disease Obstructive sleep apnea Nasal cannula to maintain saturations greater than or equal to 92%. Currently on 6 L Incentive spirometry while while CT chest bibasilar atelectasis Albuterol/ipratropium aerosols scheduled every 6 hours with as needed albuterol every 2 hours as needed dyspnea Small bilateral pleural effusions have responded to diuretics. Repeat chest x-ray in a.m. 06/14. Coronary artery disease Dilated ischemic cardiomyopathy, EF 30% Prior myocardial infarction Essential hypertension Hyperlipidemia Paroxysmal Atrial fibrillation with RVR- now rate controlled in SR Remains on amiodarone 200 mg daily with carvedilol 6.2 mg twice daily and diltiazem 60 mg every 6 hours Evaluated by cardiology. Will need right heart cath/left heart cath at some point in the future.. ABIs close to normal for his age. Source of possible embolic debris in the lower extremities remains unclear, possibly paroxysmal atrial fibrillation. His episodes of atrial fibrillation at this point are not sustained. At most 10 minutes. Considering possible embolic debris in his feet it is probably best to consider long-term anticoagulation. Currently furosemide 40 mg IV - change to po 40 mg daily starting 06/16 2D echocardiogram revealed EF of 30%. Apical and anterior akinesis. Monitor urine output Accurate I's and O FF BMP- Na level ID: Severe sepsis Left lower leg cellulitis with some wounds Enterobacter aeruginosa pneumonia H. pylori Currently on fluconazole, piperacillin/tazobactam and metronidazole started 06/06 Complete H. pylori for 14 days (clarithromycin, amoxicillin, flagyl) started UA negative Chest x-ray with decreasing right lower lobe opacity. wound care team appreciated -Please leave areas of intact black eschar to LLE and intact bullae on BLE open to air and spray with skin barrier film spray BID until seen by podiatry - Please cleanse open wound to R dorsal foot with normal saline or wound cleanser and pat dry. Apply Maxorb extra AG over wound bed and cover with dry 4x4 gauze. Secure dressing with rolled gauze, tape and stockinette. Change dressing every 2 days or as needed for saturation or dislodgement or until seen by podiatry - Please leave blood filled blister to L great toe open to air and spray with Cavilon skin barrier film BID until seen by podiatry.Pertinent cultures - wound culture sent Podiatry consult for evaluation HEME: Leukocytosis Normocytic anemia Monitor CBC and follow trends ENDO: Euglycemic. TSH is currently 0.144. Recheck TSH, free T3 and T4 in a.m. 4/24 Sliding scale insulin if indicated to maintain euglycemia FEN: Hyponatremia Hypopotassemia Replace electrolytes as clinically indicated PROPH: No SCDs for now due to concern for PAD. On enoxaparin 40 mg subcu daily. Pantoprazole 40 mg po bid -HR better controlled -Regular diet -Stable on NC -Continue Zosyn/Diflucan -Continue coverage for H. Pylori -PT following --OOB as heart rate allows Transfer to med/surgical floor PT daily AGUSTIN grace. kirit voiding out of bed to chair bid- tid- d/w staff Marie Weaver MD Jun 15, 2017 15:38
[2017-06-15] MEDS: ENOXAPARIN SODIUM 40 MG/0.4 ML SYRINGE SQ SCH (21:22)
[2017-06-16] VITALS (11 sets, daily range): BP systolic 89–133; BP diastolic 52–63; PULSE 64–80; RESP 16–20; TEMP 97.2–98.1; O2SAT 92–98
[2017-06-16] MEDS: PIPERACIL-TAZO 3.375 GM PREMIX 50 ML IV SCH ×4 (01:59→16:25)
[2017-06-16] MEDS: CHLORHEXIDINE GLUCONATE 2 % 1 PACK (2 CLOTHS) TOP SCH (02:34)
[2017-06-16] MEDS: metroNIDAZOLE 500 MG TAB PO SCH ×3 (06:44→20:31)
[2017-06-16] MEDS: CHLORHEXIDINE 0.12% (ORAL KIT) 15 ML CUP MT SCH ×2 (07:46→20:00)
[2017-06-16] MEDS: DOCUSATE SODIUM 50 MG/SENNA 8.6 MG TAB PO SCH ×2 (07:49→20:31)
[2017-06-16] MEDS: AMIODARONE 200 MG TAB PO SCH (07:49)
[2017-06-16] MEDS: CLARITHROMYCIN 500 MG TAB PO SCH ×2 (07:49→20:31)
[2017-06-16] MEDS: DILTIAZEM HCL 60 MG TAB PO SCH ×4 (07:49→20:31)
[2017-06-16] MEDS: BUDESONIDE-FORMOTEROL 160/4.5 MCG INHALER INH SCH ×2 (07:49→20:34)
[2017-06-16] MEDS: FUROSEMIDE 40 MG TAB PO SCH (07:49)
[2017-06-16] MEDS: CARBAMIDE PEROXIDE 6.5% OTIC SOLN 15 ML BTL EACH EAR SCH ×2 (07:50→20:37)
[2017-06-16] MEDS: ARTIFICIAL TEARS OPTH SOLN 15 ML BTL EACH EYE SCH ×3 (07:50→16:24)
[2017-06-16] MEDS: CARVEDILOL 6.25 MG TAB PO SCH ×2 (07:50→20:31)
[2017-06-16] MEDS: SODIUM CHLORIDE 0.9% FLUSH 10 ML FLUSH IV FLUSH SCH ×2 (07:50→20:34)
[2017-06-16] MEDS: PANTOPRAZOLE SOD 40 MG DELAYED RELEASE TAB PO SCH ×2 (07:50→20:31)
--- NOTE | 2017-06-16 09:31 | HHI.PR ---
Subjective Remarks Follow-up perforated peptic ulcer status post repair June 16, 2017-patient seen and examined, denies any significant abdominal pain. Reports shortness of breath and states he need to use his CPAP at night which he has not done. Also complains of insomnia. Objective Vitals Vital Signs Date Time Temp Pulse Resp B/P (MAP) Pulse Ox O2 Delivery O2 Flow Rate FiO2 06/16/17 08:05 97.7 70 18 120/61 (80) 06/16/17 07:45 Nasal Cannula 2.00 06/16/17 04:00 97.8 64 18 111/55 (73) 93 06/16/17 00:00 98.1 80 20 133/63 (86) 98 06/15/17 22:00 75 06/15/17 21:04 93 21 06/15/17 20:00 98.7 75 20 119/64 (82) 95 06/15/17 20:00 95 Room Air 06/15/17 20:00 75 06/15/17 16:00 98.9 72 16 113/57 (75) 90 06/15/17 16:00 72 06/15/17 12:00 98.6 78 24 128/60 (82) 92 06/15/17 12:00 78 06/15/17 11:34 92 21 I/O 06/15/17 06/15/17 06/15/17 06/16/17 06/16/17 06/16/17 07:00 15:00 23:00 07:00 15:00 23:00 Intake Total 1550 ml 50 ml 1410 ml 450 ml Output Total 2110 ml 3020 ml 250 ml Balance -560 ml 50 ml -1610 ml 200 ml Intake Oral 1200 ml 1360 ml IV Total 350 ml 50 ml 50 ml 450 ml Output Urine Total 2100 ml 3000 ml 250 ml Drainage Total 10 ml 20 ml 0 ml # Voids 2 # Bowel Movements 0 1 Result Diagram: 06/14/17 0624 06/15/17 0630 Imaging Last Impressions Chest X-Ray 06/11/17 0000 Signed Impressions: Service Date/Time: Sunday, June 11, 2017 08:01 - CONCLUSION: 1. Interval extubation and removal of nasogastric tube since the prior study. 2. Hazy opacity remaining at the lung bases with probable left effusion. Pedro Pablo Sorensen MD Upper GI Series 06/09/17 0000 Signed Impressions: Service Date/Time: May 10:52 - CONCLUSION: No evidence of gastric leakage. Jv Barfield MD Chest CT 06/05/172102 Signed Impressions: Service Date/Time: Monday, June 05, 2017 21:58 - CONCLUSION: 1. Bilateral atelectasis. 2. 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 3. No aneurysm or dissection of the thoracic aorta. Paul Palencia MD Abdomen/Pelvis CT 06/05/172010 Signed Impressions: Service Date/Time: Monday, June 05, 2017 21:58 - CONCLUSION: 1. Free intraperitoneal air and fluid. The source is not fluid identified. 2. Bibasilar is a consolidation or atelectasis at the lung bases. 3. Small right renal calcifications which may represent nonobstructing renal stones. Paul Bernal MD Objective Remarks GENERAL: NAD SKIN: Warm and dry. HEAD: Normocephalic. EYES: No scleral icterus. No injection or drainage. NECK: Supple, trachea midline. No JVD or lymphadenopathy. CARDIOVASCULAR: Regular rate and rhythm without murmurs, gallops, or rubs. RESPIRATORY: Breath sounds equal bilaterally. No accessory muscle use. GASTROINTESTINAL: Abdomen soft, non-tender, nondistended. inc c/d/i MUSCULOSKELETAL: No cyanosis, or edema. BACK: Nontender without obvious deformity. No CVA tenderness. Procedures 06/06 1. Diagnostic laparoscopy. 2. Laparoscopic repair of perforated gastric ulcer using modified Silverio patch. 3. Laparoscopic washout. Date of Removal: Jun 15, 2017 A/P Problem List: (1) Perforated bowel ICD Code: K63.1 - Perforation of intestine (nontraumatic) Status: Acute (2) Metabolic acidosis ICD Code: E87.2 - Acidosis Status: Resolved (3) Atrial fibrillation with RVR ICD Code: I48.91 - Unspecified atrial fibrillation Status: Acute (4) Cardiomyopathy ICD Code: I42.9 - Cardiomyopathy, unspecified Assessment and Plan 62-year-old man with Perforated peptic ulcer now status post laparoscopic primary repair by Dr. Valle 06/06/17 Hypoalbuminemia Elevated total bilirubin Status post left hip repair with perforated gastric ulcer with Silverio patch secondary to severe sepsis/acute abdomen with perforated anterior gastric ulcer with a #19 Garrett two-point s/p Treatment for H pylori with clarithromycin/amoxicillin/PPI 14 days ( presently on Pipracil/to the back postoperatively) -> covert to metronidazole/ clarithromycin for 10 additional days. Pantoprazole 40 mg po bid COPD/emphysema Postoperative respiratory failure secondary to volume overload and underlying parenchymal disease Obstructive sleep apnea Nasal cannula to maintain saturations greater than or equal to 92%. Currently on 6 L Incentive spirometry while while Albuterol/ipratropium aerosols scheduled every 6 hours with as needed albuterol every 2 hours as needed dyspnea CPAP @Night Coronary artery disease Dilated ischemic cardiomyopathy, EF 30% Prior myocardial infarction Essential hypertension Hyperlipidemia Paroxysmal Atrial fibrillation with RVR- now rate controlled in SR On amiodarone 200 mg daily, carvedilol 6.2 mg twice daily and diltiazem 60 mg every 6 hours Appreciate input from cardiology. Will need right heart cath/left heart cath at some point in the future.. ABIs close to normal for his age. Source of possible embolic debris in the lower extremities remains unclear, possibly paroxysmal atrial fibrillation. His episodes of atrial fibrillation at this point are not sustained. At most 10 minutes. Considering possible embolic debris in his feet it is probably best to consider long-term anticoagulation. Currently furosemide 40 mg PO daily 2D echocardiogram revealed EF of 30%. Apical and anterior akinesis. Severe sepsis Left lower leg cellulitis with some wounds Enterobacter aeruginosa pneumonia H. pylori Currently on fluconazole, piperacillin/tazobactam and metronidazole started 06/06 s/p Treatment for H pylori with clarithromycin/amoxicillin/PPI 14 days ( presently on Pipracil/to the back postoperatively) -> covert to metronidazole/ clarithromycin for 10 additional days Black eschar to LLE and intact bullae on BLE Apply Maxorb extra AG over wound bed and cover with dry 4x4 gauze. Secure dressing with rolled gauze, tape and stockinette. Change dressing every 2 days or as needed for saturation or dislodgement or until seen by podiatry Podiatry consult Leukocytosis Normocytic anemia Monitor CBC and follow trends Hyponatremia Hypopotassemia Replace electrolytes as clinically indicated PROPH: No SCDs for now due to concern for PAD. On enoxaparin 40 mg subcu daily. Pantoprazole 40 mg po bid Terry Bowling MD Jun 16, 2017 09:31
[2017-06-16] MEDS: RESP: ALBUTEROL 2.5 MG/IPRATROPIUM 0.5 MG NEB (SCH) NEB ×2 (15:39→19:27)
--- NOTE | 2017-06-16 15:45 | HHI.PR ---
Subjective Subjective Notes Up to chair No issues Objective Vitals/I&O Vital Signs Date Time Temp Pulse Resp B/P (MAP) Pulse Ox O2 Delivery O2 Flow Rate FiO2 06/16/17 11:30 108/59 (75) 06/16/17 11:17 97.3 74 16 93 06/16/17 10:36 Nasal Cannula 3.00 06/15/17 21:04 21 Labs Date/Time Source Procedure Growth Status 06/05/17 21:45 Blood Peripheral Aerobic Blood Culture - Final NO GROWTH IN 5 DAYS Complete 06/05/17 21:45 Blood Peripheral Anaerobic Blood Culture - Final NO GROWTH IN 5 DAYS Complete 06/06/17 13:00 Sputum Endotracheal Gram Stain - Final Complete 06/06/17 13:00 Sputum Culture - Final Enterobacter Aerogenes Complete 06/15/17 13:00 Wound Foot Gram Stain - Final Resulted 06/15/17 13:00 Wound Foot Wound Culture - Preliminary NO GROWTH IN 24 HOURS. Resulted Cardiovascular: Regular Lungs: Clear Abdomen: Other (lap sites c/d/i; GLENN out ), Post-op tenderness Narrative Exam LEFT calf--- chronic appearing wound 2+ pitting edema in BLE; small dark spots on planter surface of foot LEFT great toe with wound A/P Assessment and Plan 62 year old male POD11 dx lap, lap modified marcos patch, washout for perforated viscus/large anterior gastric ulcer -Regular diet -Podiatry consult pending for evaluation of foot wound -Stable on NC -Continue Zosyn/Diflucan -Continue coverage for H. Pylori -PT following --OOB as heart rate allows Attending Statement patient seen at bedside doing better await podiatry surgical issues stable Attestation The exam, history, and the medical decision-making described in the above note were completed with the assistance of the mid-level provider. I reviewed and agree with the findings presented. I attest that I had a [id number] encounter with the patient on the same day, and personally performed and documented my assessment and findings in the medical record. Lana Otero/First Henny KING Jun 16, 2017 15:45 Vijay Valle MD June 23, 2017 22:03
[2017-06-16] MEDS: ENOXAPARIN SODIUM 40 MG/0.4 ML SYRINGE SQ SCH (20:30)
[2017-06-17] VITALS (8 sets, daily range): BP systolic 103–132; BP diastolic 55–69; PULSE 68–81; RESP 16–18; TEMP 97.2–97.9; O2SAT 89–98
[2017-06-17] MEDS: FLUCONAZOLE 400 MG PREMIX BAG 200 ML IV SCH
[2017-06-17] MEDS: SODIUM CHLORIDE 0.9% FLUSH 10 ML FLUSH IV FLUSH PRN ×3 (00:01→23:55)
[2017-06-17] MEDS: PIPERACIL-TAZO 3.375 GM PREMIX 50 ML IV SCH ×5 (00:01→23:55)
[2017-06-17] MEDS: CHLORHEXIDINE GLUCONATE 2 % 1 PACK (2 CLOTHS) TOP SCH (03:35)
[2017-06-17] MEDS: metroNIDAZOLE 500 MG TAB PO SCH ×3 (04:19→21:45)
[2017-06-17] MEDS: CHLORHEXIDINE 0.12% (ORAL KIT) 15 ML CUP MT SCH ×2 (08:00→20:00)
[2017-06-17] MEDS: AMIODARONE 200 MG TAB PO SCH (09:00)
[2017-06-17] MEDS: CARBAMIDE PEROXIDE 6.5% OTIC SOLN 15 ML BTL EACH EAR SCH (09:00)
[2017-06-17] MEDS: CARVEDILOL 6.25 MG TAB PO SCH ×2 (09:00→21:45)
[2017-06-17] MEDS: RESP: ALBUTEROL 2.5 MG/IPRATROPIUM 0.5 MG NEB (SCH) NEB ×4 (09:11→20:33)
[2017-06-17] MEDS: CLARITHROMYCIN 500 MG TAB PO SCH ×2 (09:19→21:45)
[2017-06-17] MEDS: SODIUM CHLORIDE 0.9% FLUSH 10 ML FLUSH IV FLUSH SCH ×2 (09:19→21:45)
[2017-06-17] MEDS: BUDESONIDE-FORMOTEROL 160/4.5 MCG INHALER INH SCH ×2 (09:19→21:46)
[2017-06-17] MEDS: ARTIFICIAL TEARS OPTH SOLN 15 ML BTL EACH EYE SCH ×3 (09:19→18:28)
[2017-06-17] MEDS: SILVER SULFADIAZINE 1% CR 50 GM JAR TOPICAL SCH (09:20)
[2017-06-17] MEDS: PANTOPRAZOLE SOD 40 MG DELAYED RELEASE TAB PO SCH ×2 (09:20→21:45)
[2017-06-17] MEDS: DOCUSATE SODIUM 50 MG/SENNA 8.6 MG TAB PO SCH ×2 (09:20→21:45)
[2017-06-17] MEDS: FUROSEMIDE 40 MG TAB PO SCH (09:21)
[2017-06-17] MEDS: DILTIAZEM HCL 60 MG TAB PO SCH ×4 (09:22→21:45)
--- NOTE | 2017-06-17 11:32 | HHI.PR ---
Subjective Remarks Follow-up perforated peptic ulcer status post repair June 16, 2017-patient seen and examined, denies any significant abdominal pain. Reports shortness of breath and states he need to use his CPAP at night which he has not done. Also complains of insomnia. June 17, 2017-patient seen and examined, no acute event overnight. Episodes of low BP. Afebrile Objective Vitals Vital Signs Date Time Temp Pulse Resp B/P (MAP) Pulse Ox O2 Delivery O2 Flow Rate FiO2 06/17/17 09:13 96 Nasal Cannula 3.00 06/17/17 07:30 97.3 74 16 117/63 (81) 93 06/17/17 04:00 97.9 68 18 103/58 (73) 94 06/17/17 03:49 68 06/17/17 00:00 97.5 72 17 119/59 (79) 91 06/16/17 23:44 74 06/16/17 20:24 94 Nasal Cannula 3.00 06/16/17 20:00 97.8 72 17 109/55 (73) 94 06/16/17 19:42 71 06/16/17 19:29 92 Nasal Cannula 3.00 06/16/17 16:00 97.2 67 16 112/55 (74) 93 I/O 06/16/17 06/16/17 06/16/17 06/17/17 06/17/17 06/17/17 07:00 15:00 23:00 07:00 15:00 23:00 Intake Total 450 ml 50 ml 850 ml 540 ml Output Total 250 ml 1060 ml 900 ml Balance 200 ml 50 ml -210 ml -360 ml Intake Oral 800 ml 240 ml IV Total 450 ml 50 ml 50 ml 300 ml Output Urine Total 250 ml 1050 ml 900 ml Drainage Total 0 ml 10 ml 0 ml # Voids 2 # Bowel Movements 1 0 Result Diagram: 06/14/17 0624 06/15/17 0630 Objective Remarks GENERAL: NAD SKIN: Warm and dry. HEAD: Normocephalic. EYES: No scleral icterus. No injection or drainage. NECK: Supple, trachea midline. No JVD or lymphadenopathy. CARDIOVASCULAR: Regular rate and rhythm without murmurs, gallops, or rubs. RESPIRATORY: Breath sounds equal bilaterally. No accessory muscle use. GASTROINTESTINAL: Abdomen soft, non-tender, nondistended. inc c/d/i MUSCULOSKELETAL: No cyanosis, or edema. BACK: Nontender without obvious deformity. No CVA tenderness. Procedures 06/06 1. Diagnostic laparoscopy. 2. Laparoscopic repair of perforated gastric ulcer using modified Silverio patch. 3. Laparoscopic washout. Date of Removal: Jun 15, 2017 A/P Problem List: (1) Perforated bowel ICD Code: K63.1 - Perforation of intestine (nontraumatic) Status: Acute (2) Acute renal failure ICD Code: N17.9 - Acute kidney failure, unspecified Status: Acute (3) Hyperkalemia ICD Code: E87.5 - Hyperkalemia Status: Acute (4) Atrial fibrillation with RVR ICD Code: I48.91 - Unspecified atrial fibrillation Status: Acute (5) Hyponatremia ICD Code: E87.1 - Hypo-osmolality and hyponatremia Status: Acute Assessment and Plan 62-year-old man with Perforated peptic ulcer now status post laparoscopic primary repair by Dr. Valle 06/06/17 Hypoalbuminemia Elevated total bilirubin Status post left hip repair with perforated gastric ulcer with Silverio patch secondary to severe sepsis/acute abdomen with perforated anterior gastric ulcer with a #19 Garrett two-point s/p Treatment for H pylori with clarithromycin/amoxicillin/PPI 14 days ( presently on Pipracil/to the back postoperatively) -> covert to metronidazole/ clarithromycin for 10 additional days. Pantoprazole 40 mg po bid COPD/emphysema Postoperative respiratory failure secondary to volume overload and underlying parenchymal disease Obstructive sleep apnea Nasal cannula to maintain saturations greater than or equal to 92%. Currently on 3 L Incentive spirometry while while Albuterol/ipratropium aerosols scheduled every 6 hours with as needed albuterol every 2 hours as needed dyspnea CPAP @Night Coronary artery disease Dilated ischemic cardiomyopathy, EF 30% Prior myocardial infarction Essential hypertension Hyperlipidemia Paroxysmal Atrial fibrillation with RVR- now rate controlled in SR On amiodarone 200 mg daily, carvedilol 6.2 mg twice daily and diltiazem 60 mg every 6 hours Appreciate input from cardiology. Will need right heart cath/left heart cath at some point in the future.. ABIs close to normal for his age. Source of possible embolic debris in the lower extremities remains unclear, possibly paroxysmal atrial fibrillation. Currently furosemide 40 mg PO daily 2D echocardiogram revealed EF of 30%. Apical and anterior akinesis. Severe sepsis Left lower leg cellulitis with some wounds Enterobacter aeruginosa pneumonia H. pylori Currently on fluconazole, piperacillin/tazobactam and metronidazole started 06/06 s/p Treatment for H pylori with clarithromycin/amoxicillin/PPI 14 days ( presently on Pipracil/to the back postoperatively) -> covert to metronidazole/ clarithromycin for 10 additional days Black eschar to LLE and intact bullae on BLE Apply Maxorb extra AG over wound bed and cover with dry 4x4 gauze. Secure dressing with rolled gauze, tape and stockinette. Change dressing every 2 days or as needed for saturation or dislodgement or until seen by podiatry Podiatry consult Leukocytosis Normocytic anemia Monitor CBC and follow trends Hyponatremia Hypopotassemia Replace electrolytes as clinically indicated PROPH: No SCDs for now due to concern for PAD. On enoxaparin 40 mg subcu daily. Pantoprazole 40 mg po bid Problem Qualifiers (1) Acute renal failure: Qualified Codes: N17.9 - Acute kidney failure, unspecified Terry Bowling MD Jun 17, 2017 11:32
[2017-06-17 14:22] LABS: AUTOMATED NEUTROPHIL # 12.5 TH/MM3 (1.8-7.7); BASOPHIL # 0.1 TH/MM3 (0-0.2); BASOPHIL % 0.4 % (0.0-2.0); EOSINOPHIL # 0.1 TH/MM3 (0-0.4); EOSINOPHIL % 0.9 % (0.0-4.0); HEMATOCRIT 38.5 % (39.0-51.0); HEMOGLOBIN 13.2 GM/DL (13.0-17.0); LYMPH % 10.9 % (9.0-44.0); LYMPHOCYTE # 1.7 TH/MM3 (1.0-4.8); MEAN CELL VOLUME 93.7 FL (80.0-100.0); MEAN CORPUSCULAR HEMOGLOBIN 32.1 PG (27.0-34.0); MEAN CORPUSCULAR HGB CONC 34.3 % (32.0-36.0); MEAN PLATELET VOLUME 10.9 FL (7.0-11.0); MONO % 7.3 % (0.0-8.0); MONOCYTE # 1.1 TH/MM3 (0-0.9); NEUT % 80.5 % (16.0-70.0); PLATELET COUNT 371 TH/MM3 (150-450); RED BLOOD COUNT 4.11 MIL/MM3 (4.50-5.90); RED CELL DISTRIBUTION WIDTH 14.6 % (11.6-17.2); WHITE BLOOD COUNT 15.5 TH/MM3 (4.0-11.0)
--- NOTE | 2017-06-17 14:38 | HHI.PR ---
Subjective Subjective Notes Up to chair No issues Await Podiatry evaluation today Objective Vitals/I&O Vital Signs Date Time Temp Pulse Resp B/P (MAP) Pulse Ox O2 Delivery O2 Flow Rate FiO2 06/17/17 12:00 97.4 78 16 132/61 (84) 89 06/17/17 09:13 Nasal Cannula 3.00 06/15/17 21:04 21 Labs Laboratory Tests Test 06/17/17 13:50 White Blood Count 15.5 Red Blood Count 4.11 Hemoglobin 13.2 Hematocrit 38.5 Mean Corpuscular Volume 93.7 Mean Corpuscular Hemoglobin 32.1 Mean Corpuscular Hemoglobin Concent 34.3 Red Cell Distribution Width 14.6 Platelet Count 371 Mean Platelet Volume 10.9 Neutrophils (%) (Auto) 80.5 Lymphocytes (%) (Auto) 10.9 Monocytes (%) (Auto) 7.3 Eosinophils (%) (Auto) 0.9 Basophils (%) (Auto) 0.4 Neutrophils # (Auto) 12.5 Lymphocytes # (Auto) 1.7 Monocytes # (Auto) 1.1 Eosinophils # (Auto) 0.1 Basophils # (Auto) 0.1 CBC Comment AUTO DIFF Date/Time Source Procedure Growth Status 06/05/17 21:45 Blood Peripheral Aerobic Blood Culture - Final NO GROWTH IN 5 DAYS Complete 06/05/17 21:45 Blood Peripheral Anaerobic Blood Culture - Final NO GROWTH IN 5 DAYS Complete 06/06/17 13:00 Sputum Endotracheal Gram Stain - Final Complete 06/06/17 13:00 Sputum Culture - Final Enterobacter Aerogenes Complete 06/15/17 13:00 Wound Foot Gram Stain - Final Resulted 06/15/17 13:00 Wound Foot Wound Culture - Preliminary NO GROWTH IN 48 HOURS. Resulted Cardiovascular: Regular Lungs: Clear Abdomen: Other (lap sites c/d/i; GLENN removed ) Narrative Exam LEFT calf--- chronic appearing wound mild improving edema in BLE; small dark spots on planter surface of foot LEFT great toe with wound A/P Assessment and Plan 62 year old male POD12 dx lap, lap modified marcos patch, washout for perforated viscus/large anterior gastric ulcer -Regular diet -Podiatry consult pending for evaluation of foot wound -Stable on NC -Continue Zosyn/Diflucan; DC Diflucan -Check CBC today -PT following --OOB as heart rate allows -General Surgery will follow peripherally over the weekend Attending Statement patient seen at bedside slow improvement no further surgical intervention Attestation The exam, history, and the medical decision-making described in the above note were completed with the assistance of the mid-level provider. I reviewed and agree with the findings presented. I attest that I had a [id number] encounter with the patient on the same day, and personally performed and documented my assessment and findings in the medical record. Lana Otero/Grouter Helper ARNP Jun 17, 2017 14:38 Vijay Valle MD June 24, 2017 15:52
--- NOTE | 2017-06-17 14:49 | PD.POD ---
Subjective Pain score: 7 Remarks Patient does not have much pain while in bed however majority of the pain is when he is standing. The patient describes severe shinsplints hip and low back pain when he was ambulating prior to his illness that led him to the ICU and surgery. He has seen a pain management doctor in the back who attempted injections however he does not recall he has ever seen a vascular doctor SP perforated peptic ulcer status post repair. Past Med/Surg/Social History Social History Smoking Status: Current Every Day Smoker Objective Vital Signs Vital Signs Date Time Temp Pulse Resp B/P (MAP) Pulse Ox O2 Delivery O2 Flow Rate FiO2 06/17/17 12:00 97.4 78 16 132/61 (84) 89 06/17/17 09:13 96 Nasal Cannula 3.00 06/17/17 09:05 Room Air 06/17/17 07:30 97.3 74 16 117/63 (81) 93 06/17/17 04:00 97.9 68 18 103/58 (73) 94 06/17/17 03:49 68 06/17/17 00:00 97.5 72 17 119/59 (79) 91 06/16/17 23:44 74 06/16/17 20:24 94 Nasal Cannula 3.00 06/16/17 20:00 97.8 72 17 109/55 (73) 94 06/16/17 19:42 71 06/16/17 19:29 92 Nasal Cannula 3.00 06/16/17 16:00 97.2 67 16 112/55 (74) 93 Coded Allergies: No Known Allergies (Unverified , 06/05/17) Medications and IVs Administered Medications Medications (Trade) Dose Ordered Sig/Vincent Route PRN Reason Start Time Stop Time Status Last Admin Dose Admin Fluconazole/ Sodium Chloride 200 ml @ 100 mls/hr Q24H IV 06/05/17 23:30 06/17/17 00:00 Piperacillin Sod/ Tazobactam Sod 50 ml @ 100 mls/hr Q6H IV 06/06/17 06:00 06/17/17 12:40 Chlorhexidine Gluconate (Peridex 0.12% Liq) 15 ml BID@08,20 MT 06/06/17 08:00 06/14/17 20:00 Sodium Chloride (NS Flush) 2 ml UNSCH PRN IV FLUSH FLUSH AFTER USING IV ACCESS 06/06/17 07:00 06/17/17 05:23 Sodium Chloride (NS Flush) 2 ml BID IV FLUSH 06/06/17 09:00 06/17/17 09:19 Miscellaneous Information 1 Q361D XX 06/06/17 07:00 06/06/17 08:20 Chlorhexidine Gluconate (Chlorhexidine 2% Cloth) Taper DAILY@04 TOP 06/07/17 04:00 06/03/18 03:59 06/07/17 04:00 Senna/Docusate Sodium (Liz-Colace) 1 tab BID PO 06/06/17 09:00 06/17/17 09:20 Metoprolol Tartrate (Lopressor Inj) 5 mg Q2H PRN IV PUSH Pulse > 130 06/07/17 18:15 06/10/17 08:02 Enoxaparin Sodium (Lovenox Inj) 40 mg Q24H SQ 06/08/17 21:00 06/16/17 20:30 Carvedilol (Coreg) 6.25 mg Q12HR PO 06/09/17 09:00 06/16/17 20:31 Amiodarone HCl (Cordarone) 200 mg DAILY PO 06/12/17 09:00 06/16/17 07:49 Diltiazem HCl (Cardizem) 60 mg QID PO 06/10/17 13:00 06/17/17 12:40 Clarithromycin (Biaxin) 500 mg Q12HR PO 06/10/17 15:00 06/17/17 09:19 Metronidazole (Flagyl) 500 mg Q8HR PO 06/10/17 14:00 06/17/17 04:19 Artificial Tears (Tears Naturale Opth Soln) 1 drop TID EACH EYE 06/12/17 13:00 06/17/17 12:41 Budesonide/ Formoterol Fumarate (Symbicort 160-4.5 Mcg Inh) 2 puff Q12HR INH 06/13/17 21:00 06/17/17 09:19 Carbamide Peroxide (Debrox 6.5% Otic) 5 drop Q12HR EACH EAR 06/13/17 21:00 06/17/17 20:59 06/16/17 07:50 Oxycodone HCl (Roxicodone) 5 mg Q4H PRN PO pain 1-5 06/13/17 14:30 06/14/17 13:00 Oxycodone HCl (Roxicodone) 10 mg Q4H PRN PO pain 6-10 06/13/17 14:30 06/17/17 09:18 Pantoprazole Sodium (Protonix) 40 mg Q12HR PO 06/14/17 12:00 06/17/17 09:20 Zolpidem Tartrate (Ambien) 5 mg HS PRN PO sleep 06/14/17 12:00 06/15/17 02:16 Furosemide (Lasix) 40 mg DAILY PO 06/16/17 09:00 06/17/17 09:21 Silver Sulfadiazine (Silvadene 1% Cream (50 Gm)) 1 applic DAILY TOPICAL 06/17/17 09:00 06/17/17 09:20 Albuterol/ Ipratropium (Duoneb Neb) 1 ampule QID NEB NEB 06/17/17 12:00 06/17/17 12:11 Other Results Laboratory Tests Test 06/17/17 13:50 White Blood Count 15.5 TH/MM3 Red Blood Count 4.11 MIL/MM3 Hemoglobin 13.2 GM/DL Hematocrit 38.5 % Mean Corpuscular Volume 93.7 FL Mean Corpuscular Hemoglobin 32.1 PG Mean Corpuscular Hemoglobin Concent 34.3 % Red Cell Distribution Width 14.6 % Platelet Count 371 TH/MM3 Mean Platelet Volume 10.9 FL Neutrophils (%) (Auto) 80.5 % Lymphocytes (%) (Auto) 10.9 % Monocytes (%) (Auto) 7.3 % Eosinophils (%) (Auto) 0.9 % Basophils (%) (Auto) 0.4 % Neutrophils # (Auto) 12.5 TH/MM3 Lymphocytes # (Auto) 1.7 TH/MM3 Monocytes # (Auto) 1.1 TH/MM3 Eosinophils # (Auto) 0.1 TH/MM3 Basophils # (Auto) 0.1 TH/MM3 CBC Comment AUTO DIFF Microbiology Date/Time Source Procedure Growth Status 06/15/17 13:00 Wound Foot Gram Stain - Final Resulted 06/15/17 13:00 Wound Foot Wound Culture - Preliminary NO GROWTH IN 48 HOURS. Resulted TECHNIQUE: Four-cuff ankle and brachial pressures were obtained. Pulse cuff waveform tracings of the ankles were recorded, and ankle-brachial indices were calculated. PRESSURES (mmHg): Brachial (arm): Right 123 Left IV SITE Ankle: Right 96 Left 97 ALEJANDRA: Right 0.78 Left 0.79 TBI: Right 0.77 Left 0.77 PULSED CUFF WAVEFORMS: There is some amplitude blunting of the toe waveform on the left. Minimal amplitude blunting of the ankle waveform on the right. CONCLUSION: Slightly diminished ABIs bilaterally characteristic of mild PAD Physical Exam Remarks Bilateral lower extremities examined-diffuse pitting edema noted foot ankle and leg Left lower extremity: Anterior medial ames with multiple honey crusted colored with periwound erythema and central eschar noted no deep pain upon palpating the area erythema is localized, plantar aspect of the left hallux with a fluctuant purple bulla with no periwound erythema, plantar heel with petechiae embolic lesions ranging 1-3 mm, good range of motion of foot and ankle leg, pulses hard to palpate, sensation fully intact Right lower extremity similar presentation with distal anterior leg eschar localized periwound erythema, the most concerning lesion of the dorsum of the foot with significant periwound erythema extending 1-2 cm from the central eschar, plantar heel with petechiae embolic lesions ranging 1-3 mm. There is mild pain upon palpation no obvious fluctuance noted, pulses are hard to palpate , sensation intact, good range of motion of foot ankle and leg. Assessment & Plan A/P Right foot cellulitis stable eschar with periwound erythema Left hallux bulla Multiple embolic emboli bilateral plantar heel Bilateral anterior and lateral calf blister and eschar lesions. BL LE PVD The patient describes intermittent claudication when he was walking, I am recommending vascular evaluation before debridement. X-rays ordered for routine evaluation. The patient also describes chronic low back pain likely radiculopathy complicating his sensation of the lower extremity causing heightened sensitivity. Multiple embolic lesions of the heel may be indicating a deeper infection possible infectious disease consultation? We will follow-up pending x-ray and vascular recommendations likely proceed with superficial debridement tomorrow bedside. Juan Antonio Murphy DPM Jun 17, 2017 14:48
--- NOTE | 2017-06-17 17:06 | RADRPT ---
EXAM DATE/TIME: 06/17/2017 16:44 [facility] COMPARISON: No previous studies available for comparison. INDICATIONS : Right foot pain, ulceration for 1 month MEDICAL HISTORY : None. SURGICAL HISTORY : None. ENCOUNTER: Initial ACUITY: 1 month PAIN SCORE: 7/10 LOCATION: Right entire foot FINDINGS: Three view examination of the right foot demonstrates no soft tissue swelling, dislocation, or fractu re. The tarsal bones appear intact. The interphalangeal and metatarsophalangeal joints are intact. The calcaneus is intact. Bony mineralization is normal. CONCLUSION: Unremarkable examination of the right foot. On the lateral film there is a 2 mm radiodensity in the plantar aspect of the foot at the level of the MTP joints. Ish Woodruff MD on June 17, 2017 at 17:03 Board Certified Radiologist. This report was verified electronically.
--- NOTE | 2017-06-17 17:07 | RADRPT ---
EXAM DATE/TIME: 06/17/2017 16:47 [facility] COMPARISON: No previous studies available for comparison. INDICATIONS : Left foot pain, ulceration for 1 month MEDICAL HISTORY : None. SURGICAL HISTORY : None. ENCOUNTER: Initial ACUITY: 1 month PAIN SCORE: 8/10 LOCATION: Left entire foot FINDINGS: Three view examination of the left foot demonstrates no soft tissue swelling, dislocation, or fractur e. The tarsal bones appear intact. The interphalangeal and metatarsophalangeal joints are intact. The calcaneus is intact. Bony mineralization is normal. CONCLUSION: Unremarkable examination of the left foot. Ish Woodruff MD on June 17, 2017 at 17:04 Board Certified Radiologist. This report was verified electronically.
--- NOTE | 2017-06-17 18:05 | MB ---
cc: Keke Rodríguez DPM DATE: 06/16/2017 CHIEF COMPLAINT: Bilateral leg ulcerations. HISTORY OF PRESENT ILLNESS: Mr. Del Angel is a 62-year-old male patient who was admitted for abdominal pain. He is a very poor historian. He is uncertain how long he has had these wounds to the left lower extremity, but states some mild pain to the right dorsal foot. PAST MEDICAL HISTORY: Includes coronary artery disease, prior history of myocardial infarction, COPD, sleep apnea, hypertension, hyperlipidemia. PAST SURGICAL HISTORY: None reported. MEDICATIONS: Please see list. FAMILY HISTORY: Noncontributory. SOCIAL HISTORY: The patient smokes 1/2 a pack of cigarettes per day. Denies any illicit drug or alcohol abuse. Please see list for labs and vitals at time of consultation. PHYSICAL EXAMINATION: EXTREMITIES: The patient has diminished pulses, but warmth bilaterally and the feeling of perfusion. Mild edema bilaterally. Multiple small bulla on both lower extremities, without any erythema or signs of infection. A sizable eschar to the left lateral leg, stable, no signs of infection. Right dorsal foot with a 2 x 2 cm eschar with surrounding mild erythema and tenderness to touch, no drainage, no malodor. Left submetatarsal 1 with a blood-filled blister approximately 1 x 1 cm. ASSESSMENT: Bilateral multistage ulcerations. PLAN: 1. Consider a vascular consultation for eschars and poor circulation. 2. We will plan to deroof of the bulla and blood blisters and apply appropriate dressings tomorrow,;supplies ordered from nursing staff. 3. Suggest additional antibiotics. The patient is only on Zosyn and Flagyl at this time. Not ideal for a foot wound. Would suggest vancomycin if tolerable. We will monitor closely while in-house. Thank you for this consultation. Keke Rodríguez DPM LMW/KD , 05:48 PM , 06:04 PM [facility]
[2017-06-17] MEDS: ENOXAPARIN SODIUM 40 MG/0.4 ML SYRINGE SQ SCH (21:46)
[2017-06-18] VITALS (9 sets, daily range): BP systolic 102–153; BP diastolic 55–85; PULSE 67–83; RESP 16–20; TEMP 97.2–98; O2SAT 92–98
[2017-06-18] MEDS: CHLORHEXIDINE GLUCONATE 2 % 1 PACK (2 CLOTHS) TOP SCH ×2 (03:32→19:25)
[2017-06-18 05:27] LABS: AUTOMATED NEUTROPHIL # 10.2 TH/MM3 (1.8-7.7); BASOPHIL # 0.1 TH/MM3 (0-0.2); BASOPHIL % 0.5 % (0.0-2.0); EOSINOPHIL # 0.1 TH/MM3 (0-0.4); HEMATOCRIT 36.1 % (39.0-51.0); HEMOGLOBIN 12.4 GM/DL (13.0-17.0); LYMPH % 13.8 % (9.0-44.0); LYMPHOCYTE # 1.9 TH/MM3 (1.0-4.8); MEAN CELL VOLUME 92.6 FL (80.0-100.0); MEAN CORPUSCULAR HEMOGLOBIN 31.7 PG (27.0-34.0); MEAN CORPUSCULAR HGB CONC 34.3 % (32.0-36.0); MEAN PLATELET VOLUME 10.7 FL (7.0-11.0); MONO % 11.1 % (0.0-8.0); MONOCYTE # 1.5 TH/MM3 (0-0.9); NEUT % 73.6 % (16.0-70.0); PLATELET COUNT 354 TH/MM3 (150-450); RED CELL DISTRIBUTION WIDTH 14.4 % (11.6-17.2); WHITE BLOOD COUNT 13.8 TH/MM3 (4.0-11.0)
[2017-06-18 05:39] LABS: BICARBONATE 24.5 MEQ/L (21.0-32.0); CALCIUM 8.1 MG/DL (8.5-10.1); CREATININE 0.93 MG/DL (0.60-1.30)
[2017-06-18] MEDS: metroNIDAZOLE 500 MG TAB PO SCH ×3 (05:57→21:02)
[2017-06-18] MEDS: SODIUM CHLORIDE 0.9% FLUSH 10 ML FLUSH IV FLUSH PRN (05:57)
[2017-06-18] MEDS: PIPERACIL-TAZO 3.375 GM PREMIX 50 ML IV SCH ×4 (05:57→22:57)
[2017-06-18] MEDS: CHLORHEXIDINE 0.12% (ORAL KIT) 15 ML CUP MT SCH ×2 (08:00→19:54)
[2017-06-18] MEDS: CARVEDILOL 6.25 MG TAB PO SCH ×2 (08:58→19:54)
[2017-06-18] MEDS: PANTOPRAZOLE SOD 40 MG DELAYED RELEASE TAB PO SCH ×2 (08:58→19:54)
[2017-06-18] MEDS: BUDESONIDE-FORMOTEROL 160/4.5 MCG INHALER INH SCH ×2 (08:58→19:54)
[2017-06-18] MEDS: AMIODARONE 200 MG TAB PO SCH (08:58)
[2017-06-18] MEDS: SODIUM CHLORIDE 0.9% FLUSH 10 ML FLUSH IV FLUSH SCH ×2 (08:58→19:54)
[2017-06-18] MEDS: CLARITHROMYCIN 500 MG TAB PO SCH ×2 (08:58→19:54)
[2017-06-18] MEDS: FUROSEMIDE 40 MG TAB PO SCH (08:58)
[2017-06-18] MEDS: DILTIAZEM HCL 60 MG TAB PO SCH ×4 (08:58→19:57)
[2017-06-18] MEDS: DOCUSATE SODIUM 50 MG/SENNA 8.6 MG TAB PO SCH ×2 (08:58→19:54)
[2017-06-18] MEDS: ARTIFICIAL TEARS OPTH SOLN 15 ML BTL EACH EYE SCH ×3 (08:59→16:14)
[2017-06-18] MEDS: SILVER SULFADIAZINE 1% CR 50 GM JAR TOPICAL SCH (08:59)
[2017-06-18 09:46] LABS: BANDS 4 % (0-6); LYMPHOCYTES 8 % (9-44); MONOCYTES 12 % (0-8); MYELOCYTES 2 % (0-0); NEUTROPHIL # MANUAL DIFF 10.8 TH/MM3 (1.8-7.7); POLYS (SEG NEUTROPHILS) 72 % (16-70)
[2017-06-18 09:47] LABS: STOMATOCYTES 1+ (NORMAL)
[2017-06-18] MEDS: RESP: ALBUTEROL 2.5 MG/IPRATROPIUM 0.5 MG NEB (SCH) NEB ×4 (09:55→19:39)
--- NOTE | 2017-06-18 11:24 | MP ---
cc: Juan Antonio Murphy DPM DATE OF OPERATION: 06/18/2017 PREOPERATIVE DIAGNOSIS: Multiple superficial abscess bulla of the foot, ankle and leg bilateral. POSTOPERATIVE DIAGNOSIS: Multiple superficial abscess bulla of the foot, ankle and leg bilateral. PROCEDURE PERFORMED: Sharp excisional debridement of superficial abscess bulla foot, ankle and leg, multiple. SPECIMENS: Culture right leg, left leg, left hallux and right dorsum of the foot for culture and sensitivity. ESTIMATED BLOOD LOSS: Less than 5 mL. COMPLICATIONS: None. INJECTABLES: None. ANESTHESIA: Bedside. No local was used. PROCEDURE IN DETAIL: After performing the appropriate timeout and consent, the bilateral lower extremities were prepped with Betadine. The left lower extremity was the first focus. There were multiple honey crusted lesions over the lateral aspect of the patient's anterolateral leg below the knee. Utilizing a scalpel and suture forceps, these were explored yielding very minimal cloudy, mainly honey crusted draining type lesions. Culture taken at this area. Bandage applied. At the left plantar hallux, there was noted to be a bulla. This was deroofed, revealing a partial thickness ulcer with minimal fibrotic base. No exposure to tendon. Culture taken of this area. Next, the right lower extremity was examined. The dorsum of the right foot has a full-thickness eschar with honey crusted periwound erythema and bulla formation. Incision took place. This appears to be only going through the epidermis and down to the dermis, it did not appear to go deep into the EHL or EDL. Culture taken at this area. Incision made on the anterior lateral right proximal below knee area of honey crusted lesions, sent for culture analysis. The patient will receive gentamicin cream to the lesions. Continue to observe for possible progression. Recommend vascular consultation, possible infectious disease consultation at a later date pending the patient's progress. Juan Antonio Nj. JOSÉ LUIS Murphy/DARA , 11:03 AM , 11:22 AM [facility] HOSPITALNisreen
--- NOTE | 2017-06-18 12:39 | HHI.PR ---
Subjective Remarks Follow-up perforated peptic ulcer status post repair June 16, 2017-patient seen and examined, denies any significant abdominal pain. Reports shortness of breath and states he need to use his CPAP at night which he has not done. Also complains of insomnia. June 17, 2017-patient seen and examined, no acute event overnight. Episodes of low BP. Afebrile June 18, 2017-patient seen and examined, complaining of generalized pain. Is discussed with podiatry Objective Vitals Vital Signs Date Time Temp Pulse Resp B/P (MAP) Pulse Ox O2 Delivery O2 Flow Rate FiO2 06/18/17 12:00 97.7 72 20 102/58 (73) 93 06/18/17 09:58 92 Nasal Cannula 3.00 06/18/17 08:00 97.2 83 19 151/76 (101) 95 06/18/17 04:00 97.6 67 17 126/58 (80) 92 06/18/17 04:00 72 06/18/17 00:00 98.0 79 16 153/85 (107) 98 06/17/17 21:42 98 Nasal Cannula 3.00 Humidified 06/17/17 20:00 75 06/17/17 20:00 97.2 81 17 121/69 (86) 98 06/17/17 16:00 97.6 75 16 110/55 (73) 93 I/O 06/17/17 06/17/17 06/17/17 06/18/17 06/18/17 06/18/17 07:00 15:00 23:00 07:00 15:00 23:00 Intake Total 540 ml 50 ml 550 ml 340 ml Output Total 900 ml Balance -360 ml 50 ml 550 ml 340 ml Intake Oral 240 ml 500 ml 240 ml IV Total 300 ml 50 ml 50 ml 100 ml Output Urine Total 900 ml Drainage Total 0 ml # Voids 3 3 # Bowel Movements 0 Result Diagram: 06/18/17 0406 06/18/17 0406 Objective Remarks GENERAL: NAD SKIN: Warm and dry. HEAD: Normocephalic. EYES: No scleral icterus. No injection or drainage. NECK: Supple, trachea midline. No JVD or lymphadenopathy. CARDIOVASCULAR: Regular rate and rhythm without murmurs, gallops, or rubs. RESPIRATORY: Breath sounds equal bilaterally. No accessory muscle use. GASTROINTESTINAL: Abdomen soft, non-tender, nondistended. inc c/d/i MUSCULOSKELETAL: No cyanosis, or edema. BACK: Nontender without obvious deformity. No CVA tenderness. Procedures 06/06 1. Diagnostic laparoscopy. 2. Laparoscopic repair of perforated gastric ulcer using modified Silverio patch. 3. Laparoscopic washout. Date of Removal: Jun 15, 2017 A/P Problem List: (1) Perforated bowel ICD Code: K63.1 - Perforation of intestine (nontraumatic) Status: Acute (2) Acute renal failure ICD Code: N17.9 - Acute kidney failure, unspecified Status: Acute (3) Hyperkalemia ICD Code: E87.5 - Hyperkalemia Status: Acute (4) Atrial fibrillation with RVR ICD Code: I48.91 - Unspecified atrial fibrillation Status: Acute (5) Hyponatremia ICD Code: E87.1 - Hypo-osmolality and hyponatremia Status: Acute Assessment and Plan 62-year-old man with Perforated peptic ulcer now status post laparoscopic primary repair by Dr. Valle 06/06/17 Hypoalbuminemia Elevated total bilirubin Status post left hip repair with perforated gastric ulcer with Silverio patch secondary to severe sepsis/acute abdomen with perforated anterior gastric ulcer with a #19 Garrett two-point s/p Treatment for H pylori with clarithromycin/amoxicillin/PPI 14 days ( presently on Pipracil/to the back postoperatively) -> covert to metronidazole/ clarithromycin for 10 additional days. Pantoprazole 40 mg po bid COPD/emphysema Postoperative respiratory failure secondary to volume overload and underlying parenchymal disease Obstructive sleep apnea Nasal cannula to maintain saturations greater than or equal to 92%. Currently on 3 L Albuterol/ipratropium aerosols scheduled every 6 hours with as needed albuterol every 2 hours as needed dyspnea CPAP @Night Coronary artery disease Dilated ischemic cardiomyopathy, EF 30% Prior myocardial infarction Essential hypertension Hyperlipidemia Paroxysmal Atrial fibrillation with RVR- now rate controlled in SR On amiodarone 200 mg daily, carvedilol 6.2 mg twice daily and diltiazem 60 mg every 6 hours Appreciate input from cardiology. Will need right heart cath/left heart cath at some point in the future.. ABIs close to normal for his age. Source of possible embolic debris in the lower extremities remains unclear, possibly paroxysmal atrial fibrillation. Currently furosemide 40 mg PO daily 2D echocardiogram revealed EF of 30%. Apical and anterior akinesis. Severe sepsis Left lower leg cellulitis with some wounds Enterobacter aeruginosa pneumonia H. pylori Currently on fluconazole, piperacillin/tazobactam and metronidazole started 06/06 s/p Treatment for H pylori with clarithromycin/amoxicillin/PPI 14 days ( presently on Pipracil/to the back postoperatively) -> covert to metronidazole/ clarithromycin for 10 additional days Black eschar to LLE and intact bullae on BLE Apply Maxorb extra AG over wound bed and cover with dry 4x4 gauze. Secure dressing with rolled gauze, tape and stockinette. Podiatry input appreciated Leukocytosis Normocytic anemia Monitor CBC and follow trends Hyponatremia Hypopotassemia Replace electrolytes as clinically indicated PROPH: No SCDs for now due to concern for PAD. On enoxaparin 40 mg subcu daily. Pantoprazole 40 mg po bid Problem Qualifiers (1) Acute renal failure: Qualified Codes: N17.9 - Acute kidney failure, unspecified Terry Bowling MD Jun 18, 2017 12:39
--- NOTE | 2017-06-18 13:12 | MB ---
cc: Nehal Desir MD DATE: 06/18/2017 REFERRING PROVIDER: Dr. Juan Antonio Murphy. REASON FOR CONSULTATION: Ischemia of the right foot with ulcers of the right foot. HISTORY OF PRESENT ILLNESS: This 62-year-old gentleman presented to [facility] with an unrelated problem. He developed a gastric ulcer perforation, which was repaired by Dr. Valle. The patient spent a few days in ICU and is now on the floor. He is noted to have gangrenous changes over the dorsum of the right foot with a gangrenous ulcer measuring about 1 cm in diameter as well as cellulitis of the right foot. PAST MEDICAL HISTORY: The patient has medical history of COPD, sleep apnea, hypertension, hyperlipidemia, atrial fibrillation with RVR. He is also known to have cardiac disease, prior myocardial infarction, history of vasculopathy. SOCIAL HISTORY: The patient is a lifetime smoker, about 2 packs a day of cigarettes. REVIEW OF SYSTEMS: The patient states that his walking is impaired. He can only walk about 30 feet or so and then he has pain in his feet, calves and tightening up. PHYSICAL EXAMINATION: GENERAL: Reveals 62-year-old male appearing very ill, appearing older than his actual age. HEENT: Normocephalic. No trauma to head. Pupils equal, reactive. Extraocular muscles intact. NECK: Supple. Bilateral carotid pulses and mild carotid bruit on the right. CHEST: Bilateral breath sounds, decreased over both lungs alba, consistent with moderate degree of chronic obstructive pulmonary disease. HEART: Actually seems to be a regular rhythm right now as I am looking at the patient, apparently was in atrial fibrillation earlier. ABDOMEN: Soft. No rebound, no guarding, no masses. Scars from previous surgery. EXTREMITIES: The patient has weak palpable femoral pulses and distal pulses only by Doppler. Popliteal pulse is present, but not very brisk. Dorsalis pedis bilaterally I cannot detect. Posterior tibial is present bilateral. Feet are warm. The patient has generalized anasarca, but pretibial edema and feet edema is more prominent. There is some rubor over the right foot and also an ulcer that measured about 1 cm in diameter. Sensation of both feet is decreased. NEUROLOGIC: The patient is intact. IMPRESSION: Patient with possible peripheral vascular changes, but also possibly shower of emboli to his feet in the face of sepsis and atrial fibrillation. He has multiple reasons why he could be showering emboli. His ejection fraction is about 30%. An echo did not show any vegetations. Nonetheless, patients with sepsis can become hypercoagulable of course and can shower emboli. I will order a CTA with runoff to assess the vasculature of this gentleman; however, he is not a candidate for any major surgery, but might be a candidate for endovascular procedure if that would improve the blood flow to the foot. Thank you very much for the referral. MD LIVIER Carpio/DARA , 12:53 PM , 01:12 PM
--- NOTE | 2017-06-18 16:45 | RADRPT ---
EXAM DATE/TIME: 06/18/2017 16:00 [facility] COMPARISON: No previous studies available for comparison. INDICATIONS : Vasculopath with bruit. MEDICAL HISTORY : Myocardial infarction. Hypercholesterolemia. Hypertension. SURGICAL HISTORY : Unable to obtain. ENCOUNTER: Initial ACUITY: 1 day PAIN SCORE: 0/10 LOCATION: Bilateral neck PEAK SYSTOLIC VELOCITIES (cm/sec): ICA/CCA RATIO: Right: 0.7 Left: 0.7 ICA: Right: 79 Left: 94 CCA: Right: 108 Left: 136 ECA: Right: 102 Left: 114 VERTEBRAL: Right: 40 antegrade Left: 47 antegrade Elevated flow velocities and ICA/CCA ratios have been found to correlate with increased degrees of vessel stenosis, calculated as percentage of diameter relative to a normal segment of distal ICA/CCA FINDINGS: RIGHT CAROTID: No significant stenosis is visualized. Mild plaque. The waveforms are within normal limits. LEFT CAROTID: No significant stenosis is visualized. Mild plaque. The waveforms are within normal limits. VERTEBRAL ARTERIES: Antegrade flow is seen in both vertebral arteries. MISCELLANEOUS: None. CONCLUSION: No hemodynamically significant stenosis in either carotid artery. Terry Trevizo MD on June 18, 2017 at 16:42 Board Certified Radiologist. This report was verified electronically.
[2017-06-18] MEDS: ENOXAPARIN SODIUM 40 MG/0.4 ML SYRINGE SQ SCH (19:56)
[2017-06-19] VITALS (10 sets, daily range): BP systolic 109–128; BP diastolic 55–78; PULSE 67–78; RESP 18–21; TEMP 97.2–97.9; O2SAT 94–98
[2017-06-19] MEDS: PIPERACIL-TAZO 3.375 GM PREMIX 50 ML IV SCH ×3 (04:34→17:13)
[2017-06-19] MEDS: metroNIDAZOLE 500 MG TAB PO SCH ×3 (04:34→21:57)
[2017-06-19] MEDS: CHLORHEXIDINE 0.12% (ORAL KIT) 15 ML CUP MT SCH ×2 (08:00→20:00)
[2017-06-19] MEDS: RESP: ALBUTEROL 2.5 MG/IPRATROPIUM 0.5 MG NEB (SCH) NEB ×4 (08:18→20:26)
[2017-06-19] MEDS: PANTOPRAZOLE SOD 40 MG DELAYED RELEASE TAB PO SCH ×2 (08:35→21:57)
[2017-06-19] MEDS: SILVER SULFADIAZINE 1% CR 50 GM JAR TOPICAL SCH (08:35)
[2017-06-19] MEDS: CARVEDILOL 6.25 MG TAB PO SCH ×3 (08:36→21:57)
[2017-06-19] MEDS: FUROSEMIDE 40 MG TAB PO SCH (08:36)
[2017-06-19] MEDS: CLARITHROMYCIN 500 MG TAB PO SCH ×2 (08:37→21:57)
[2017-06-19] MEDS: BUDESONIDE-FORMOTEROL 160/4.5 MCG INHALER INH SCH ×2 (08:37→21:00)
[2017-06-19] MEDS: ARTIFICIAL TEARS OPTH SOLN 15 ML BTL EACH EYE SCH ×3 (08:37→17:13)
[2017-06-19] MEDS: SODIUM CHLORIDE 0.9% FLUSH 10 ML FLUSH IV FLUSH SCH ×2 (08:37→22:02)
[2017-06-19] MEDS: DILTIAZEM HCL 60 MG TAB PO SCH ×4 (08:37→21:57)
[2017-06-19] MEDS: DOCUSATE SODIUM 50 MG/SENNA 8.6 MG TAB PO SCH ×2 (08:37→21:00)
[2017-06-19] MEDS: AMIODARONE 200 MG TAB PO SCH (08:37)
--- NOTE | 2017-06-19 09:57 | HHI.PR ---
Subjective Remarks Follow-up perforated peptic ulcer status post repair June 16, 2017-patient seen and examined, denies any significant abdominal pain. Reports shortness of breath and states he need to use his CPAP at night which he has not done. Also complains of insomnia. June 17, 2017-patient seen and examined, no acute event overnight. Episodes of low BP. Afebrile June 18, 2017-patient seen and examined, complaining of generalized pain. Is discussed with podiatry June 19, 2017-patient seen and examined, complains of lower extremities pain, currently afebrile Objective Vitals Vital Signs Date Time Temp Pulse Resp B/P (MAP) Pulse Ox O2 Delivery O2 Flow Rate FiO2 06/19/17 08:35 94 Nasal Cannula 3.00 06/19/17 08:20 96 Nasal Cannula 3.00 06/19/17 04:00 97.8 76 20 126/58 (80) 96 06/19/17 01:38 71 06/19/17 00:00 97.9 71 20 109/55 (73) 96 06/18/17 22:15 Nasal Cannula 3.00 06/18/17 22:15 80 06/18/17 20:00 97.9 78 20 114/55 (74) 95 06/18/17 19:39 94 Nasal Cannula 3.00 06/18/17 16:00 97.9 73 17 109/55 (73) 94 06/18/17 12:00 97.7 72 20 102/58 (73) 93 06/18/17 09:58 92 Nasal Cannula 3.00 I/O 06/18/17 06/18/17 06/18/17 06/19/17 06/19/17 06/19/17 07:00 15:00 23:00 07:00 15:00 23:00 Intake Total 340 ml 50 ml 600 ml 340 ml Balance 340 ml 50 ml 600 ml 340 ml Intake Oral 240 ml 600 ml 240 ml IV Total 100 ml 50 ml 100 ml # Voids 3 5 # Bowel Movements 0 Result Diagram: 06/18/17 0406 06/18/17 0406 Imaging Last Impressions Carotid Artery Ultrasound 06/18/17 0000 Signed Impressions: Service Date/Time: Sunday, June 18, 2017 16:00 - CONCLUSION: No hemodynamically significant stenosis in either carotid artery. Terry Trevizo MD Foot X-Ray 06/17/17 0000 Signed Impressions: Service Date/Time: Saturday, June 17, 2017 16:44 - CONCLUSION: Unremarkable examination of the right foot. On the lateral film there is a 2 mm radiodensity in the plantar aspect of the foot at the level of the MTP joints. Ish Woodruff MD Chest X-Ray 06/11/17 0000 Signed Impressions: Service Date/Time: Sunday, June 11, 2017 08:01 - CONCLUSION: 1. Interval extubation and removal of nasogastric tube since the prior study. 2. Hazy opacity remaining at the lung bases with probable left effusion. Pedro Pablo Sorensen MD Upper GI Series 06/09/17 0000 Signed Impressions: Service Date/Time: May 10:52 - CONCLUSION: No evidence of gastric leakage. Jv Barfield MD Chest CT [id number]/05/[id number] Signed Impressions: Service Date/Time: Monday, June 05, 2017 21:58 - CONCLUSION: 1. Bilateral atelectasis. 2. 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 3. No aneurysm or dissection of the thoracic aorta. Paul Palencia MD Abdomen/Pelvis CT 06/05/172010 Signed Impressions: Service Date/Time: Monday, June 05, 2017 21:58 - CONCLUSION: 1. Free intraperitoneal air and fluid. The source is not fluid identified. 2. Bibasilar is a consolidation or atelectasis at the lung bases. 3. Small right renal calcifications which may represent nonobstructing renal stones. Paul Bernal MD Objective Remarks GENERAL: NAD SKIN: Warm and dry. HEAD: Normocephalic. EYES: No scleral icterus. No injection or drainage. NECK: Supple, trachea midline. No JVD or lymphadenopathy. CARDIOVASCULAR: Regular rate and rhythm without murmurs, gallops, or rubs. RESPIRATORY: Breath sounds equal bilaterally. No accessory muscle use. GASTROINTESTINAL: Abdomen soft, non-tender, nondistended. inc c/d/i MUSCULOSKELETAL: No cyanosis, or edema. BACK: Nontender without obvious deformity. No CVA tenderness. Procedures 06/06 1. Diagnostic laparoscopy. 2. Laparoscopic repair of perforated gastric ulcer using modified Silverio patch. 3. Laparoscopic washout. June 18, 2017 s/p Sharp excisional debridement of superficial abscess bulla foot, ankle and leg, multiple Date of Removal: Jun 15, 2017 A/P Problem List: (1) Perforated bowel ICD Code: K63.1 - Perforation of intestine (nontraumatic) Status: Acute (2) Acute renal failure ICD Code: N17.9 - Acute kidney failure, unspecified Status: Acute (3) Hyperkalemia ICD Code: E87.5 - Hyperkalemia Status: Acute (4) Atrial fibrillation with RVR ICD Code: I48.91 - Unspecified atrial fibrillation Status: Acute (5) Hyponatremia ICD Code: E87.1 - Hypo-osmolality and hyponatremia Status: Acute Assessment and Plan 62-year-old man with Perforated peptic ulcer now status post laparoscopic primary repair by Dr. Valle 06/06/17 Hypoalbuminemia Elevated total bilirubin Status post left hip repair with perforated gastric ulcer with Silverio patch secondary to severe sepsis/acute abdomen with perforated anterior gastric ulcer with a #19 Garrett two-point s/p Treatment for H pylori with clarithromycin/amoxicillin/PPI 14 days ( presently on Pipracil/to the back postoperatively) -> covert to metronidazole/ clarithromycin for 10 additional days. Pantoprazole 40 mg po bid COPD/emphysema Postoperative respiratory failure secondary to volume overload and underlying parenchymal disease Obstructive sleep apnea Nasal cannula to maintain saturations greater than or equal to 92%. Currently on 3 L Albuterol/ipratropium aerosols scheduled every 6 hours with as needed albuterol every 2 hours as needed dyspnea CPAP @Night Coronary artery disease Dilated ischemic cardiomyopathy, EF 30% Prior myocardial infarction Essential hypertension Hyperlipidemia Paroxysmal Atrial fibrillation with RVR- now rate controlled in SR On amiodarone 200 mg daily, carvedilol 6.2 mg twice daily and diltiazem 60 mg every 6 hours Appreciate input from cardiology. Will need right heart cath/left heart cath at some point in the future.. ABIs close to normal for his age. Source of possible embolic debris in the lower extremities remains unclear, possibly paroxysmal atrial fibrillation. Currently furosemide 40 mg PO daily 2D echocardiogram revealed EF of 30%. Apical and anterior akinesis. Severe sepsis-resolved Left lower leg cellulitis with some wounds Enterobacter aeruginosa pneumonia H. pylori Currently on fluconazole, piperacillin/tazobactam and metronidazole started 06/06 s/p Treatment for H pylori with clarithromycin/amoxicillin/PPI 14 days ( presently on Pipracil/to the back postoperatively) -> covert to metronidazole/ clarithromycin for 10 additional days Black eschar to LLE and intact bullae on BLE Apply Maxorb extra AG over wound bed and cover with dry 4x4 gauze. Podiatry input appreciated and patient is status post Sharp excisional debridement of superficial abscess bulla foot, ankle and leg , multiple June 18, 2017 Vascular surgery was consulted and has ordered a CTA will run out to rule out PAD Leukocytosis Normocytic anemia Monitor CBC and follow trends Hyponatremia Hypopotassemia Replace electrolytes as clinically indicated PROPH: No SCDs for now due to concern for PAD. On enoxaparin 40 mg subcu daily. Pantoprazole 40 mg po bid Problem Qualifiers (1) Acute renal failure: Qualified Codes: N17.9 - Acute kidney failure, unspecified Terry Bowling MD Jun 19, 2017 09:57
--- NOTE | 2017-06-19 11:39 | PD.POD ---
Subjective Pain score: 7 Remarks Pain remains unchanged bilateral feet ankles and lower extremities he is having a hard time moving and walking. SP perforated peptic ulcer status post repair. Past Med/Surg/Social History Social History Smoking Status: Current Every Day Smoker Objective Vital Signs Vital Signs Date Time Temp Pulse Resp B/P (MAP) Pulse Ox O2 Delivery O2 Flow Rate FiO2 06/19/17 08:35 94 Nasal Cannula 3.00 06/19/17 08:20 96 Nasal Cannula 3.00 06/19/17 08:00 97.5 75 18 120/58 (78) 94 06/19/17 04:00 97.8 76 20 126/58 (80) 96 06/19/17 01:38 71 06/19/17 00:00 97.9 71 20 109/55 (73) 96 06/18/17 22:15 Nasal Cannula 3.00 06/18/17 22:15 80 06/18/17 20:00 97.9 78 20 114/55 (74) 95 06/18/17 19:39 94 Nasal Cannula 3.00 06/18/17 16:00 97.9 73 17 109/55 (73) 94 06/18/17 12:00 97.7 72 20 102/58 (73) 93 Coded Allergies: No Known Allergies (Unverified , 06/05/17) Medications and IVs Administered Medications Medications (Trade) Dose Ordered Sig/Vincent Route PRN Reason Start Time Stop Time Status Last Admin Dose Admin Piperacillin Sod/ Tazobactam Sod 50 ml @ 100 mls/hr Q6H IV 06/06/17 06:00 06/19/17 04:34 Chlorhexidine Gluconate (Peridex 0.12% Liq) 15 ml BID@08,20 MT 06/06/17 08:00 06/14/17 20:00 Sodium Chloride (NS Flush) 2 ml UNSCH PRN IV FLUSH FLUSH AFTER USING IV ACCESS 06/06/17 07:00 06/18/17 05:57 Sodium Chloride (NS Flush) 2 ml BID IV FLUSH 06/06/17 09:00 06/19/17 08:37 Miscellaneous Information 1 Q361D XX 06/06/17 07:00 06/06/17 08:20 Chlorhexidine Gluconate (Chlorhexidine 2% Cloth) Taper DAILY@04 TOP 06/07/17 04:00 06/03/18 03:59 06/07/17 04:00 Senna/Docusate Sodium (Liz-Colace) 1 tab BID PO 06/06/17 09:00 06/19/17 08:37 Metoprolol Tartrate (Lopressor Inj) 5 mg Q2H PRN IV PUSH Pulse > 130 06/07/17 18:15 06/10/17 08:02 Enoxaparin Sodium (Lovenox Inj) 40 mg Q24H SQ 06/08/17 21:00 06/18/17 19:56 Carvedilol (Coreg) 6.25 mg Q12HR PO 06/09/17 09:00 06/19/17 08:36 Amiodarone HCl (Cordarone) 200 mg DAILY PO 06/12/17 09:00 06/19/17 08:37 Diltiazem HCl (Cardizem) 60 mg QID PO 06/10/17 13:00 06/19/17 08:37 Clarithromycin (Biaxin) 500 mg Q12HR PO 06/10/17 15:00 06/19/17 08:37 Metronidazole (Flagyl) 500 mg Q8HR PO 06/10/17 14:00 06/19/17 04:34 Artificial Tears (Tears Naturale Opth Soln) 1 drop TID EACH EYE 06/12/17 13:00 06/19/17 08:37 Budesonide/ Formoterol Fumarate (Symbicort 160-4.5 Mcg Inh) 2 puff Q12HR INH 06/13/17 21:00 06/19/17 08:37 Oxycodone HCl (Roxicodone) 5 mg Q4H PRN PO pain 1-5 06/13/17 14:30 06/14/17 13:00 Oxycodone HCl (Roxicodone) 10 mg Q4H PRN PO pain 6-10 06/13/17 14:30 06/19/17 10:59 Pantoprazole Sodium (Protonix) 40 mg Q12HR PO 06/14/17 12:00 06/19/17 08:35 Zolpidem Tartrate (Ambien) 5 mg HS PRN PO sleep 06/14/17 12:00 06/15/17 02:16 Furosemide (Lasix) 40 mg DAILY PO 06/16/17 09:00 06/19/17 08:36 Silver Sulfadiazine (Silvadene 1% Cream (50 Gm)) 1 applic DAILY TOPICAL 06/17/17 09:00 06/19/17 08:35 Albuterol/ Ipratropium (Duoneb Neb) 1 ampule QID NEB NEB 06/17/17 12:00 06/19/17 08:18 Other Results Laboratory Tests Test 06/17/17 13:50 06/18/17 04:06 White Blood Count 15.5 TH/MM3 13.8 TH/MM3 Red Blood Count 4.11 MIL/MM3 3.90 MIL/MM3 Hemoglobin 13.2 GM/DL 12.4 GM/DL Hematocrit 38.5 % 36.1 % Mean Corpuscular Volume 93.7 FL 92.6 FL Mean Corpuscular Hemoglobin 32.1 PG 31.7 PG Mean Corpuscular Hemoglobin Concent 34.3 % 34.3 % Red Cell Distribution Width 14.6 % 14.4 % Platelet Count 371 TH/MM3 354 TH/MM3 Mean Platelet Volume 10.9 FL 10.7 FL Neutrophils (%) (Auto) 80.5 % 73.6 % Lymphocytes (%) (Auto) 10.9 % 13.8 % Monocytes (%) (Auto) 7.3 % 11.1 % Eosinophils (%) (Auto) 0.9 % 1.0 % Basophils (%) (Auto) 0.4 % 0.5 % Neutrophils # (Auto) 12.5 TH/MM3 10.2 TH/MM3 Lymphocytes # (Auto) 1.7 TH/MM3 1.9 TH/MM3 Monocytes # (Auto) 1.1 TH/MM3 1.5 TH/MM3 Eosinophils # (Auto) 0.1 TH/MM3 0.1 TH/MM3 Basophils # (Auto) 0.1 TH/MM3 0.1 TH/MM3 CBC Comment AUTO DIFF AUTO DIFF Differential Comment AUTO DIFF CONFIRMED FINAL DIFF MANUAL Platelet Estimate NORMAL NORMAL Platelet Morphology Comment ENLARGED ENLARGED Differential Total Cells Counted 100 Neutrophils % (Manual) 72 % Band Neutrophils % 4 % Lymphocytes % 8 % Monocytes % 12 % Eosinophils % 2 % Neutrophils # (Manual) 10.8 TH/MM3 Myelocytes 2 % Stomatocytes 1+ Laboratory Tests Test 06/18/17 04:06 Blood Urea Nitrogen 14 MG/DL Creatinine 0.93 MG/DL Random Glucose 106 MG/DL Calcium Level 8.1 MG/DL Sodium Level 128 MEQ/L Potassium Level 3.5 MEQ/L Chloride Level 92 MEQ/L Carbon Dioxide Level 24.5 MEQ/L Anion Gap 12 MEQ/L Estimat Glomerular Filtration Rate 82 ML/MIN Microbiology Date/Time Source Procedure Growth Status 06/18/17 10:50 Abscess Leg Gram Stain - Final Resulted 06/18/17 10:50 Abscess Leg Wound Culture Pending Resulted 06/18/17 10:50 Abscess Toe Gram Stain - Final Resulted 06/18/17 10:50 Abscess Toe Wound Culture Pending Resulted 06/18/17 10:50 Abscess Leg Gram Stain - Final Resulted 06/18/17 10:50 Abscess Leg Wound Culture Pending Resulted 06/18/17 10:50 Abscess Foot Gram Stain - Final Resulted 06/18/17 10:50 Abscess Foot Wound Culture Pending Resulted Exam-Podiatry Remarks Bilateral lower extremities examined-diffuse pitting edema noted foot ankle and leg Left lower extremity: Anterior medial ames with multiple honey crusted colored with periwound erythema and central eschar noted no deep pain upon palpating the area erythema is localized, plantar aspect of the left hallux fibrotic ulcer approximately 2 cm with mild periwound erythema no bone exposed or deep tissue, plantar heel with petechiae embolic lesions ranging 1-3 mm, good range of motion of foot and ankle leg, pulses hard to palpate, sensation fully intact Right lower extremity similar presentation with distal anterior leg eschar localized periwound erythema, the most concerning lesion of the dorsum of the foot with significant periwound erythema extending 1-2 cm from the central eschar, plantar heel with petechiae embolic lesions ranging 1-3 mm. There is mild pain upon palpation no obvious fluctuance noted, pulses are hard to palpate , sensation intact, good range of motion of foot ankle and leg. Assessment & Plan A/P Right foot cellulitis stable eschar with periwound erythema Left hallux ulcer Multiple emboli bilateral plantar heel Bilateral anterior and lateral calf blister and eschar lesions. BL LE PVD Cultures pending from procedure, patient is stable however not much improvement. Awaiting CTA with runoff reviewed case with vascular. Continue wound care no further surgery planned at this point. Will evaluate within 2-3 days. Nursing to continue wound care. uJan Antonio Murphy DPM Jun 19, 2017 11:39
[2017-06-19] MEDS ORDERED: IOHEXOL 350 MG/ML 10 ML VIAL (for RAD DIAG) IVCONTRAST ONE (13:30)
--- NOTE | 2017-06-19 13:53 | PD.CAR.PN ---
CVT Progress Note Subjective/Hospital Course: Patient with long-standing diabetes and history of smoking presents with a cellulitis and a gangrenous ulcer over the right foot. Carotid ultrasound negative for significant stenosis CTA with a runoff pending CTA with runoff is pending and based on that we will decide if patient needs any vascular work for potentially hemodynamically significant stenosis, or not Discussed with Dr. Murphy We will evaluate CTA with runoff ones done and advise on possible further therapy Objective: Vital Signs Date Time Temp Pulse Resp B/P (MAP) Pulse Ox O2 Delivery O2 Flow Rate FiO2 06/19/17 12:00 97.2 78 19 126/78 (94) 96 06/19/17 08:35 94 Nasal Cannula 3.00 06/19/17 08:20 96 Nasal Cannula 3.00 06/19/17 08:00 97.5 75 18 120/58 (78) 94 06/19/17 04:00 97.8 76 20 126/58 (80) 96 06/19/17 01:38 71 06/19/17 00:00 97.9 71 20 109/55 (73) 96 06/18/17 22:15 Nasal Cannula 3.00 06/18/17 22:15 80 06/18/17 20:00 97.9 78 20 114/55 (74) 95 06/18/17 19:39 94 Nasal Cannula 3.00 06/18/17 16:00 97.9 73 17 109/55 (73) 94 Result Diagram: 06/18/17 0406 06/18/17 0406 (1) NSTEMI (non-ST elevated myocardial infarction) (2) Cardiomyopathy (3) Hyponatremia (4) Atrial fibrillation with RVR (5) Perforated bowel Nehal Desir MD Jun 19, 2017 13:53
--- NOTE | 2017-06-19 16:19 | RADRPT ---
EXAM DATE/TIME: 06/19/2017 11:43 [facility] COMPARISON: No previous studies available for comparison. INDICATIONS : Ischemic right foot, peripheral vascular disease. IV CONTRAST: 100 cc Omnipaque 350 (iohexol) IV RADIATION DOSE: 4.01 CTDIvol (mGy) MEDICAL HISTORY : Hypertension. Peripheral vascular disease. Cardiovascular disease SURGICAL HISTORY : None. ENCOUNTER: Initial ACUITY: 1 day PAIN SCALE: 6/10 LOCATION: Right foot TECHNIQUE: Volumetric scanning was performed using a multi-row detector CT scanner. The data was post processed with a variety of visualization algorithms including full volume maximum intensity projection, multi -planar sliding thin slab reformation, curved planar reformation, and surface rendering techniques. Using automated exposure control and adjustment of the mA and/or kV according to patient size, radiat ion dose was kept as low as reasonably achievable to obtain optimal diagnostic quality images. DICO M format image data is available electronically for review and comparison. FINDINGS: AORTA: Mild atherosclerotic calcifications without dissection or aneurysm. VISCERAL ARTERIES: There are 2 right renal arteries. The arteries are patent. Celiac, SMA, and GUMARO are widely patent. RIGHT LEG: INFLOW: Mild scattered atherosclerotic calcifications without significant flow-limiting stenosis. Internal il iac artery is calcified but patent. Common from artery is patent. OUTFLOW: Profunda femoris is patent. Mild scattered SFA with tandem stenoses in the distal thigh. Popliteal ar gene is patent. RUNOFF: Mild calcified plaque in the tibioperoneal trunk with tandem stenoses. 3 vessel runoff to the foot. LEFT LEG: INFLOW: Mild scattered calcifications without significant flow-limiting stenosis. Internal iliac artery is ca lcified but patent. Common from artery is patent.. OUTFLOW: Profunda is patent. Scattered calcified plaque throughout the SFA with tandem mild stenosis in the d istal thigh. Focal ulcerated plaque versus small saccular aneurysm in the popliteal artery at the lev el of the knee. Moderate focal stenosis of the popliteal artery just above this region. RUNOFF: Mild calcified plaque in the tibioperoneal trunk and origin of the anterior tibial artery with mild s tenoses. 3 vessel runoff to the foot. GENERAL FINDINGS: Visualized lung bases demonstrate diffuse groundglass opacities. Evaluation of the abdominal viscera is limited due to arterial phase technique. Liver, spleen, adrenal glands, and pancreas are grossly u nremarkable. Gallbladder is distended but otherwise unremarkable by CT. There is a 3.2 cm cyst in the mid left kidney. There is a 1.3 cm indeterminate density cystic lesion seen slightly more anteriorly in the mid left kidney. Kidneys otherwise demonstrate symmetrical enhancement without hydronephrosis . No significant renal mass. Mild sigmoid diverticulosis. The bowel appears unremarkable without evid ence for obstruction. No significant free fluid or drainable fluid collection. Bladder is moderately distended but otherwise unremarkable. Prostate and seminal vesicles are within normal limits. CONCLUSION: 1. Overall mild peripheral vascular disease. No significant aortic or inflow stenosis. 2. Mild bilateral SFA plaque with tandem stenoses in the distal thigh. 3. Focal moderate stenosis of the popliteal artery at the level of the knee on the left. 4. 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 5. Limited 3 vessel runoff bilaterally. 6. 1.3 cm indeterminate density cystic lesion in the anterior mid left kidney. 7. Moderately distended bladder. Edvin Bocanegra MD on June 19, 2017 at 16:06 Board Certified Radiologist. This report was verified electronically.
[2017-06-19] MEDS: ENOXAPARIN SODIUM 40 MG/0.4 ML SYRINGE SQ SCH (21:57)
[2017-06-20] VITALS (8 sets, daily range): BP systolic 109–123; BP diastolic 58–69; PULSE 73–89; RESP 16–20; TEMP 97.6–98; O2SAT 90–95
[2017-06-20] MEDS: PIPERACIL-TAZO 3.375 GM PREMIX 50 ML IV SCH ×5 (00:07→23:20)
[2017-06-20] MEDS: CHLORHEXIDINE GLUCONATE 2 % 1 PACK (2 CLOTHS) TOP SCH (04:00)
[2017-06-20] MEDS: metroNIDAZOLE 500 MG TAB PO SCH ×3 (04:58→20:39)
[2017-06-20] MEDS: RESP: ALBUTEROL 2.5 MG/IPRATROPIUM 0.5 MG NEB (SCH) NEB ×5 (07:42→20:00)
[2017-06-20] MEDS: CHLORHEXIDINE 0.12% (ORAL KIT) 15 ML CUP MT SCH ×2 (08:00→20:00)
[2017-06-20] MEDS: ARTIFICIAL TEARS OPTH SOLN 15 ML BTL EACH EYE SCH ×3 (08:13→17:26)
[2017-06-20] MEDS: BUDESONIDE-FORMOTEROL 160/4.5 MCG INHALER INH SCH ×2 (08:14→20:40)
[2017-06-20] MEDS: SODIUM CHLORIDE 0.9% FLUSH 10 ML FLUSH IV FLUSH SCH ×2 (08:14→20:36)
[2017-06-20] MEDS: PANTOPRAZOLE SOD 40 MG DELAYED RELEASE TAB PO SCH ×2 (08:15→20:38)
[2017-06-20] MEDS: AMIODARONE 200 MG TAB PO SCH (08:16)
[2017-06-20] MEDS: DOCUSATE SODIUM 50 MG/SENNA 8.6 MG TAB PO SCH ×2 (08:16→20:38)
[2017-06-20] MEDS: SILVER SULFADIAZINE 1% CR 50 GM JAR TOPICAL SCH (08:16)
[2017-06-20] MEDS: DILTIAZEM HCL 60 MG TAB PO SCH ×4 (08:16→20:37)
[2017-06-20] MEDS: CLARITHROMYCIN 500 MG TAB PO SCH ×2 (08:16→20:37)
[2017-06-20] MEDS: FUROSEMIDE 40 MG TAB PO SCH (08:16)
[2017-06-20] MEDS: CARVEDILOL 6.25 MG TAB PO SCH ×2 (08:16→20:37)
--- NOTE | 2017-06-20 10:14 | HHI.PR ---
Subjective Remarks Follow-up perforated peptic ulcer status post repair June 16, 2017-patient seen and examined, denies any significant abdominal pain. Reports shortness of breath and states he need to use his CPAP at night which he has not done. Also complains of insomnia. June 17, 2017-patient seen and examined, no acute event overnight. Episodes of low BP. Afebrile June 18, 2017-patient seen and examined, complaining of generalized pain. Is discussed with podiatry June 19, 2017-patient seen and examined, complains of lower extremities pain, currently afebrile June 20, 2017-patient seen and examined, denies any chest pain, shortness of breath or dizziness. CTA with runoff mild peripheral vascular disease Objective Vitals Vital Signs Date Time Temp Pulse Resp B/P (MAP) Pulse Ox O2 Delivery O2 Flow Rate FiO2 06/20/17 08:00 97.8 89 16 123/69 (87) 95 06/20/17 07:46 95 21 06/20/17 04:00 97.9 82 20 122/62 (82) 95 06/20/17 00:00 98.0 80 20 118/66 (83) 95 06/19/17 20:45 94 Nasal Cannula 3.00 06/19/17 20:27 98 Nasal Cannula 3.00 06/19/17 20:00 97.9 72 18 113/55 (74) 95 06/19/17 16:00 97.2 67 21 128/60 (82) 97 06/19/17 12:00 97.2 78 19 126/78 (94) 96 I/O 06/19/17 06/19/17 06/19/17 06/20/17 06/20/17 06/20/17 07:00 15:00 23:00 07:00 15:00 23:00 Intake Total 340 ml 50 ml 845 ml 600 ml Balance 340 ml 50 ml 845 ml 600 ml Intake Oral 240 ml 795 ml 600 ml IV Total 100 ml 50 ml 50 ml # Voids 4 3 # Bowel Movements 2 0 Result Diagram: 06/18/17 0406 06/18/17 0406 Imaging Last Impressions Aorta w/Runoff CTA 06/19/17 0000 Signed Impressions: Service Date/Time: Monday, June 19, 2017 11:43 - CONCLUSION: 1. Overall mild peripheral vascular disease. No significant aortic or inflow stenosis. 2. Mild bilateral SFA plaque with tandem stenoses in the distal thigh. 3. Focal moderate stenosis of the popliteal artery at the level of the knee on the left. 4. 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 5. Limited 3 vessel runoff bilaterally. 6. 1.3 cm indeterminate density cystic lesion in the anterior mid left kidney. 7. Moderately distended bladder. Edvin Bocanegra MD Carotid Artery Ultrasound 06/18/17 0000 Signed Impressions: Service Date/Time: Sunday, June 18, 2017 16:00 - CONCLUSION: No hemodynamically significant stenosis in either carotid artery. Terry Trevizo MD Foot X-Ray 06/17/17 Signed Impressions: Service Date/Time: Saturday, June 17, 2017 16:44 - CONCLUSION: Unremarkable examination of the right foot. On the lateral film there is a 2 mm radiodensity in the plantar aspect of the foot at the level of the MTP joints. Ish Woodruff MD Chest X-Ray 06/11/17 Signed Impressions: Service Date/Time: Sunday, June 11, 2017 08:01 - CONCLUSION: 1. Interval extubation and removal of nasogastric tube since the prior study. 2. Hazy opacity remaining at the lung bases with probable left effusion. Pedro Pablo Sorensen MD Upper GI Series 06/09/17 0000 Signed Impressions: Service Date/Time: May 10:52 - CONCLUSION: No evidence of gastric leakage. Jv Barfield MD Chest CT 06/05/172102 Signed Impressions: Service Date/Time: Monday, June 05, 2017 21:58 - CONCLUSION: 1. Bilateral atelectasis. 2. 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 3. No aneurysm or dissection of the thoracic aorta. Paul Palencia MD Abdomen/Pelvis CT 06/05/172010 Signed Impressions: Service Date/Time: Monday, June 05, 2017 21:58 - CONCLUSION: 1. Free intraperitoneal air and fluid. The source is not fluid identified. 2. Bibasilar is a consolidation or atelectasis at the lung bases. 3. Small right renal calcifications which may represent nonobstructing renal stones. Paul Bernal MD Objective Remarks GENERAL: NAD SKIN: Warm and dry. HEAD: Normocephalic. EYES: No scleral icterus. No injection or drainage. NECK: Supple, trachea midline. No JVD or lymphadenopathy. CARDIOVASCULAR: Regular rate and rhythm without murmurs, gallops, or rubs. RESPIRATORY: Breath sounds equal bilaterally. No accessory muscle use. GASTROINTESTINAL: Abdomen soft, non-tender, nondistended. inc c/d/i MUSCULOSKELETAL: No cyanosis, or edema. BACK: Nontender without obvious deformity. No CVA tenderness. Procedures 06/06 1. Diagnostic laparoscopy. 2. Laparoscopic repair of perforated gastric ulcer using modified Silverio patch. 3. Laparoscopic washout. June 18, 2017 s/p Sharp excisional debridement of superficial abscess bulla foot, ankle and leg, multiple Date of Removal: Jun 15, 2017 A/P Problem List: (1) Perforated bowel ICD Code: K63.1 - Perforation of intestine (nontraumatic) Status: Acute (2) Acute renal failure ICD Code: N17.9 - Acute kidney failure, unspecified Status: Acute (3) Hyperkalemia ICD Code: E87.5 - Hyperkalemia Status: Acute (4) Atrial fibrillation with RVR ICD Code: I48.91 - Unspecified atrial fibrillation Status: Acute (5) Hyponatremia ICD Code: E87.1 - Hypo-osmolality and hyponatremia Status: Acute Assessment and Plan 62-year-old man with Perforated peptic ulcer now status post laparoscopic primary repair by Dr. Valle 06/06/17 Hypoalbuminemia Elevated total bilirubin Status post left hip repair with perforated gastric ulcer with Silverio patch secondary to severe sepsis/acute abdomen with perforated anterior gastric ulcer with a #19 Garrett two-point s/p Treatment for H pylori with clarithromycin/amoxicillin/PPI 14 days ( presently on Pipracil/to the back postoperatively) -> covert to metronidazole/ clarithromycin for 10 additional days. Pantoprazole 40 mg po bid COPD/emphysema Postoperative respiratory failure secondary to volume overload and underlying parenchymal disease Obstructive sleep apnea Nasal cannula to maintain saturations greater than or equal to 92%. Currently on 3 L Albuterol/ipratropium aerosols scheduled every 6 hours with as needed albuterol every 2 hours as needed dyspnea CPAP @Night Coronary artery disease Dilated ischemic cardiomyopathy, EF 30% Prior myocardial infarction Essential hypertension Hyperlipidemia Paroxysmal Atrial fibrillation with RVR- now rate controlled in SR On amiodarone 200 mg daily, carvedilol 6.2 mg twice daily and diltiazem 60 mg every 6 hours Appreciate input from cardiology. Will need right heart cath/left heart cath at some point in the future.. ABIs close to normal for his age. Source of possible embolic debris in the lower extremities remains unclear, possibly paroxysmal atrial fibrillation. Currently furosemide 40 mg PO daily 2D echocardiogram revealed EF of 30%. Apical and anterior akinesis. Severe sepsis-resolved Left lower leg cellulitis with some wounds Enterobacter aeruginosa pneumonia H. pylori Currently on fluconazole, piperacillin/tazobactam and metronidazole started 06/06 s/p Treatment for H pylori with clarithromycin/amoxicillin/PPI 14 days ( presently on Pipracil/to the back postoperatively) -> covert to metronidazole/ clarithromycin for 10 additional days Black eschar to LLE and intact bullae on BLE Apply Maxorb extra AG over wound bed and cover with dry 4x4 gauze. Podiatry input appreciated and patient is status post Sharp excisional debridement of superficial abscess bulla foot, ankle and leg , multiple June 18, 2017 Vascular surgery was consulted CTA with runoff mild peripheral vascular disease, awaiting for recommendations from vascular surgery Leukocytosis Normocytic anemia Monitor CBC and follow trends Hyponatremia Hypopotassemia Replace electrolytes as clinically indicated PROPH: No SCDs for now due to concern for PAD. On enoxaparin 40 mg subcu daily. Pantoprazole 40 mg po bid Problem Qualifiers (1) Acute renal failure: Qualified Codes: N17.9 - Acute kidney failure, unspecified Terry Bowling MD Jun 20, 2017 10:14
[2017-06-20] MEDS: ENOXAPARIN SODIUM 40 MG/0.4 ML SYRINGE SQ SCH (20:39)
--- NOTE | 2017-06-20 23:33 | RADRPT ---
EXAM DATE/TIME: 06/20/2017 22:46 [facility] COMPARISON: No previous studies available for comparison. INDICATIONS : Left arm swelling. MEDICAL HISTORY : Myocardial infarction. Hypercholesterolemia. Hypertension. SURGICAL HISTORY : Unable to obtain. ENCOUNTER: Initial ACUITY: 2 day PAIN SCORE: 3/10 LOCATION: Left arm. FINDINGS: There is spontaneous flow documented in the brachial, basilic, axillary, and subclavian veins. The v essels are compressible and augmentation response is documented. No filling defects are seen. The f low is phasic with respiration. Direction of flow in the jugular vein is caudal. The However, occlusive thrombus is identified mid and distal portions of the left cephalic vein. CONCLUSION: 1. No deep venous thrombosis. 2. However, occlusive thrombus is seen in the mid and distal portions of the left cephalic vein. Rosales Combs MD on June 20, 2017 at 23:30 Board Certified Radiologist. This report was verified electronically.
[2017-06-21] VITALS (9 sets, daily range): BP systolic 110–134; BP diastolic 55–92; PULSE 73–87; RESP 16–19; TEMP 97.4–98.1; O2SAT 92–97
[2017-06-21] MEDS: CHLORHEXIDINE GLUCONATE 2 % 1 PACK (2 CLOTHS) TOP SCH ×2 (01:11→22:42)
[2017-06-21] MEDS: metroNIDAZOLE 500 MG TAB PO SCH ×3 (04:36→22:41)
[2017-06-21] MEDS: PIPERACIL-TAZO 3.375 GM PREMIX 50 ML IV SCH (04:37)
[2017-06-21] MEDS: CHLORHEXIDINE 0.12% (ORAL KIT) 15 ML CUP MT SCH ×2 (08:00→20:00)
[2017-06-21] MEDS: DOCUSATE SODIUM 50 MG/SENNA 8.6 MG TAB PO SCH ×2 (08:16→20:58)
[2017-06-21] MEDS: AMIODARONE 200 MG TAB PO SCH (08:16)
[2017-06-21] MEDS: CLARITHROMYCIN 500 MG TAB PO SCH ×2 (08:16→20:58)
[2017-06-21] MEDS: PANTOPRAZOLE SOD 40 MG DELAYED RELEASE TAB PO SCH ×2 (08:16→20:58)
[2017-06-21] MEDS: CARVEDILOL 6.25 MG TAB PO SCH ×2 (08:16→20:58)
[2017-06-21] MEDS: BUDESONIDE-FORMOTEROL 160/4.5 MCG INHALER INH SCH ×2 (08:17→20:57)
[2017-06-21] MEDS: ARTIFICIAL TEARS OPTH SOLN 15 ML BTL EACH EYE SCH ×3 (08:17→17:30)
[2017-06-21] MEDS: DILTIAZEM HCL 60 MG TAB PO SCH ×4 (08:17→20:58)
[2017-06-21] MEDS: FUROSEMIDE 40 MG TAB PO SCH (08:17)
[2017-06-21] MEDS: SILVER SULFADIAZINE 1% CR 50 GM JAR TOPICAL SCH (08:18)
[2017-06-21] MEDS: SODIUM CHLORIDE 0.9% FLUSH 10 ML FLUSH IV FLUSH SCH ×2 (08:18→20:57)
[2017-06-21] MEDS: RESP: ALBUTEROL 2.5 MG/IPRATROPIUM 0.5 MG NEB (SCH) NEB (08:34)
--- NOTE | 2017-06-21 15:49 | HHI.PR ---
Subjective Remarks Follow-up perforated peptic ulcer status post repair June 16, 2017-patient seen and examined, denies any significant abdominal pain. Reports shortness of breath and states he need to use his CPAP at night which he has not done. Also complains of insomnia. June 17, 2017-patient seen and examined, no acute event overnight. Episodes of low BP. Afebrile June 18, 2017-patient seen and examined, complaining of generalized pain. Is discussed with podiatry June 19, 2017-patient seen and examined, complains of lower extremities pain, currently afebrile June 20, 2017-patient seen and examined, denies any chest pain, shortness of breath or dizziness. CTA with runoff mild peripheral vascular disease June 21, 2017-patient seen and examined, significant shortness of breath. Only complaint of bilateral lower extremity pain otherwise stable. Afebrile Objective Vitals Vital Signs Date Time Temp Pulse Resp B/P (MAP) Pulse Ox O2 Delivery O2 Flow Rate FiO2 06/21/17 12:00 97.4 77 19 131/92 (105) 97 06/21/17 08:36 95 21 06/21/17 08:20 Nasal Cannula 3.00 21 06/21/17 08:00 98.0 77 16 125/62 (83) 92 06/21/17 04:00 97.9 83 18 133/63 (86) 94 06/21/17 00:00 97.7 87 19 112/55 (74) 92 06/20/17 19:02 90 Nasal Cannula 3.00 06/20/17 19:02 Nasal Cannula 3.00 21 06/20/17 18:54 97.7 73 16 118/59 (78) 90 I/O 06/20/17 06/20/17 06/20/17 06/21/17 06/21/17 06/21/17 07:00 15:00 23:00 07:00 15:00 23:00 Intake Total 600 ml 100 ml 100 ml Balance 600 ml 100 ml 100 ml Intake Oral 600 ml IV Total 100 ml 100 ml # Voids 3 # Bowel Movements 0 Result Diagram: 06/18/17 0406 06/18/17 0406 Imaging Last Impressions Upper Extremity Ultrasound 06/20/17 0000 Signed Impressions: Service Date/Time: Tuesday, June 20, 2017 22:46 - CONCLUSION: 1. No deep venous thrombosis. 2. However, occlusive thrombus is seen in the mid and distal portions of the left cephalic vein. Rosales Combs MD Aorta w/Runoff CTA 06/19/17 0000 Signed Impressions: Service Date/Time: Monday, June 19, 2017 11:43 - CONCLUSION: 1. Overall mild peripheral vascular disease. No significant aortic or inflow stenosis. 2. Mild bilateral SFA plaque with tandem stenoses in the distal thigh. 3. Focal moderate stenosis of the popliteal artery at the level of the knee on the left. 4. 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 5. Limited 3 vessel runoff bilaterally. 6. 1.3 cm indeterminate density cystic lesion in the anterior mid left kidney. 7. Moderately distended bladder. Edvin Bocanegra MD Carotid Artery Ultrasound 06/18/17 0000 Signed Impressions: Service Date/Time: Sunday, June 18, 2017 16:00 - CONCLUSION: No hemodynamically significant stenosis in either carotid artery. Terry Trevizo MD Foot X-Ray 06/17/17 0000 Signed Impressions: Service Date/Time: Saturday, June 17, 2017 16:44 - CONCLUSION: Unremarkable examination of the right foot. On the lateral film there is a 2 mm radiodensity in the plantar aspect of the foot at the level of the MTP joints. Ish Woodruff MD Chest X-Ray 06/11/17 0000 Signed Impressions: Service Date/Time: Sunday, June 11, 2017 08:01 - CONCLUSION: 1. Interval extubation and removal of nasogastric tube since the prior study. 2. Hazy opacity remaining at the lung bases with probable left effusion. Pedro Pablo Sorensen MD Upper GI Series 06/09/17 0000 Signed Impressions: Service Date/Time: May 10:52 - CONCLUSION: No evidence of gastric leakage. Jv Barfield MD Chest CT 06/05/172102 Signed Impressions: Service Date/Time: Monday, June 05, 2017 21:58 - CONCLUSION: 1. Bilateral atelectasis. 2. 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 3. No aneurysm or dissection of the thoracic aorta. Paul Palencia MD Abdomen/Pelvis CT 06/05/172010 Signed Impressions: Service Date/Time: Monday, June 05, 2017 21:58 - CONCLUSION: 1. Free intraperitoneal air and fluid. The source is not fluid identified. 2. Bibasilar is a consolidation or atelectasis at the lung bases. 3. Small right renal calcifications which may represent nonobstructing renal stones. Paul Bernal MD Objective Remarks GENERAL: NAD SKIN: Warm and dry. HEAD: Normocephalic. EYES: No scleral icterus. No injection or drainage. NECK: Supple, trachea midline. No JVD or lymphadenopathy. CARDIOVASCULAR: Regular rate and rhythm without murmurs, gallops, or rubs. RESPIRATORY: Breath sounds equal bilaterally. No accessory muscle use. GASTROINTESTINAL: Abdomen soft, non-tender, nondistended. inc c/d/i MUSCULOSKELETAL: No cyanosis, or edema. BACK: Nontender without obvious deformity. No CVA tenderness. Procedures 06/06 1. Diagnostic laparoscopy. 2. Laparoscopic repair of perforated gastric ulcer using modified Silverio patch. 3. Laparoscopic washout. June 18, 2017 s/p Sharp excisional debridement of superficial abscess bulla foot, ankle and leg, multiple Date of Removal: Jun 15, 2017 A/P Problem List: (1) Perforated bowel ICD Code: K63.1 - Perforation of intestine (nontraumatic) Status: Acute (2) Acute renal failure ICD Code: N17.9 - Acute kidney failure, unspecified Status: Acute (3) Hyperkalemia ICD Code: E87.5 - Hyperkalemia Status: Acute (4) Atrial fibrillation with RVR ICD Code: I48.91 - Unspecified atrial fibrillation Status: Acute (5) Hyponatremia ICD Code: E87.1 - Hypo-osmolality and hyponatremia Status: Acute Assessment and Plan 62-year-old man with Perforated peptic ulcer now status post laparoscopic primary repair by Dr. Valle 06/06/17 Hypoalbuminemia Elevated total bilirubin Status post left hip repair with perforated gastric ulcer with Silverio patch secondary to severe sepsis/acute abdomen with perforated anterior gastric ulcer with a #19 Garrett two-point s/p Treatment for H pylori with clarithromycin/amoxicillin/PPI 14 days -> covert to metronidazole/clarithromycin for 10 additional days. Pantoprazole 40 mg po bid COPD/emphysema Postoperative respiratory failure secondary to volume overload and underlying parenchymal disease Obstructive sleep apnea Nasal cannula to maintain saturations greater than or equal to 92%. Currently on 3 L Albuterol/ipratropium aerosols scheduled every 6 hours with as needed albuterol every 2 hours as needed dyspnea CPAP @Night Coronary artery disease Dilated ischemic cardiomyopathy, EF 30% Prior myocardial infarction Essential hypertension Hyperlipidemia Paroxysmal Atrial fibrillation with RVR- now rate controlled in SR On amiodarone 200 mg daily, carvedilol 6.2 mg twice daily and diltiazem 60 mg every 6 hours Appreciate input from cardiology. Will need right heart cath/left heart cath at some point in the future.. ABIs close to normal for his age. Source of possible embolic debris in the lower extremities remains unclear, possibly paroxysmal atrial fibrillation. Currently furosemide 40 mg PO daily 2D echocardiogram revealed EF of 30%. Apical and anterior akinesis. Severe sepsis-resolved Left lower leg cellulitis with some wounds Enterobacter aeruginosa pneumonia H. pylori Currently on fluconazole, piperacillin/tazobactam and metronidazole started 06/06 s/p Treatment for H pylori with clarithromycin/amoxicillin/PPI 14 days -> covert to metronidazole/clarithromycin for 10 additional days Black eschar to LLE and intact bullae on BLE Apply Maxorb extra AG over wound bed and cover with dry 4x4 gauze. Podiatry input appreciated and patient is status post Sharp excisional debridement of superficial abscess bulla foot, ankle and leg , multiple June 18, 2017 Vascular surgery was consulted CTA with runoff mild peripheral vascular disease, awaiting for recommendations from vascular surgery Leukocytosis Normocytic anemia Monitor CBC and follow trends Hyponatremia Hypopotassemia Replace electrolytes as clinically indicated VTE in LUE cephalic vein Currently on Lovenox PROPH: No SCDs for now due to concern for PAD. On enoxaparin 40 mg subcu daily. Pantoprazole 40 mg po bid Problem Qualifiers (1) Acute renal failure: Qualified Codes: N17.9 - Acute kidney failure, unspecified Terry Bowling MD June 21, 2017 15:49
--- NOTE | 2017-06-21 15:51 | HHI.DS ---
Discharge Summary Admission Date Jun 05, 2017 at 23:25 Discharge Date: June 22, 2017 Admitting Diagnosis PERFORATED BOWEL (1) Perforated bowel ICD Code: K63.1 - Perforation of intestine (nontraumatic) Diagnosis: Principal Status: Acute (2) Acute renal failure ICD Code: N17.9 - Acute kidney failure, unspecified Diagnosis: Principal Status: Acute (3) Hyperkalemia ICD Code: E87.5 - Hyperkalemia Diagnosis: Secondary Status: Acute (4) Atrial fibrillation with RVR ICD Code: I48.91 - Unspecified atrial fibrillation Diagnosis: Secondary Status: Acute (5) Hyponatremia ICD Code: E87.1 - Hypo-osmolality and hyponatremia Diagnosis: Secondary Status: Acute Procedures 06/06 1. Diagnostic laparoscopy. 2. Laparoscopic repair of perforated gastric ulcer using modified Silverio patch. 3. Laparoscopic washout. June 18, 2017 s/p Sharp excisional debridement of superficial abscess bulla foot, ankle and leg, multiple Brief History - From Admission 62 year old male who presented to [facility] emergency department with 2 week history of abdominal pain. He had acute abdomen on presentation. He underwent CT abdomen and pelvis that demonstrated free air and free fluid. General surgery was consulted and he was taken emergently to the operating room. He also presented with acute kidney injury and potassium of 7.3 and I ordered medical management with calcium, bicarb, insulin, dextrose prior to going to OR. Dr. Valle states patient had a large perforated gastric ulcer for which he performed laparoscopic primary repair. Patient will be transitioned to [facility] and [facility] is consulted for postoperative critical care management. CBC/BMP: 06/18/17 0406 06/18/17 0406 Imaging Last Impressions Upper Extremity Ultrasound 06/20/17 0000 Signed Impressions: Service Date/Time: Tuesday, June 20, 2017 22:46 - CONCLUSION: 1. No deep venous thrombosis. 2. However, occlusive thrombus is seen in the mid and distal portions of the left cephalic vein. Rosales Combs MD Aorta w/Runoff CTA 06/19/17 0000 Signed Impressions: Service Date/Time: Monday, June 19, 2017 11:43 - CONCLUSION: 1. Overall mild peripheral vascular disease. No significant aortic or inflow stenosis. 2. Mild bilateral SFA plaque with tandem stenoses in the distal thigh. 3. Focal moderate stenosis of the popliteal artery at the level of the knee on the left. 4. 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 5. Limited 3 vessel runoff bilaterally. 6. 1.3 cm indeterminate density cystic lesion in the anterior mid left kidney. 7. Moderately distended bladder. Edvin Bocanegra MD Carotid Artery Ultrasound 06/18/17 Signed Impressions: Service Date/Time: Sunday, June 18, 2017 16:00 - CONCLUSION: No hemodynamically significant stenosis in either carotid artery. Teryr Trevizo MD Foot X-Ray 06/17/17 Signed Impressions: Service Date/Time: Saturday, June 17, 2017 16:44 - CONCLUSION: Unremarkable examination of the right foot. On the lateral film there is a 2 mm radiodensity in the plantar aspect of the foot at the level of the MTP joints. Ish Woodruff MD Chest X-Ray 06/11/17 Signed Impressions: Service Date/Time: Sunday, June 11, 2017 08:01 - CONCLUSION: 1. Interval extubation and removal of nasogastric tube since the prior study. 2. Hazy opacity remaining at the lung bases with probable left effusion. Pedro Pablo Sorensen MD Upper GI Series 06/09/17 0000 Signed Impressions: Service Date/Time: May 10:52 - CONCLUSION: No evidence of gastric leakage. Jv Barfield MD Chest CT 06/05/172102 Signed Impressions: Service Date/Time: Monday, June 05, 2017 21:58 - CONCLUSION: 1. Bilateral atelectasis. 2. 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 3. No aneurysm or dissection of the thoracic aorta. Paul Palencia MD Abdomen/Pelvis CT 06/05/172010 Signed Impressions: Service Date/Time: Monday, June 05, 2017 21:58 - CONCLUSION: 1. Free intraperitoneal air and fluid. The source is not fluid identified. 2. Bibasilar is a consolidation or atelectasis at the lung bases. 3. Small right renal calcifications which may represent nonobstructing renal stones. Paul Bernal MD PE at Discharge GENERAL: NAD SKIN: Warm and dry. HEAD: Normocephalic. EYES: No scleral icterus. No injection or drainage. NECK: Supple, trachea midline. No JVD or lymphadenopathy. CARDIOVASCULAR: Regular rate and rhythm without murmurs, gallops, or rubs. RESPIRATORY: Breath sounds equal bilaterally. No accessory muscle use. GASTROINTESTINAL: Abdomen soft, non-tender, nondistended. inc c/d/i MUSCULOSKELETAL: No cyanosis, or edema. BACK: Nontender without obvious deformity. No CVA tenderness. Hospital Course While in hospital, the patient was treated for: Perforated peptic ulcer now status post laparoscopic primary repair by Dr. Valle 06/06/17 Hypoalbuminemia Elevated total bilirubin Status post left hip repair with perforated gastric ulcer with Silverio patch secondary to severe sepsis/acute abdomen with perforated anterior gastric ulcer with a #19 Garrett two-point s/p Treatment for H pylori with clarithromycin/amoxicillin/PPI 14 days -> covert to metronidazole/clarithromycin for 10 additional days which patient completed prior to. Pantoprazole 40 mg po bid COPD/emphysema Postoperative respiratory failure secondary to volume overload and underlying parenchymal disease Obstructive sleep apnea Nasal cannula to maintain saturations greater than or equal to 92%. Currently on 3 L Albuterol/ipratropium aerosols scheduled every 6 hours with as needed albuterol every 2 hours as needed dyspnea CPAP @Night Coronary artery disease Dilated ischemic cardiomyopathy, EF 30% Prior myocardial infarction Essential hypertension Hyperlipidemia Paroxysmal Atrial fibrillation with RVR- now rate controlled in SR Treated with amiodarone 200 mg daily, carvedilol 6.25 mg twice daily and diltiazem 60 mg every 6 hours Appreciate input from cardiology. Will need right heart cath/left heart cath at some point in the future. ABIs close to normal for his age. Source of possible embolic debris in the lower extremities remains unclear, possibly paroxysmal atrial fibrillation. Treated with furosemide 40 mg PO daily 2D echocardiogram revealed EF of 30%. Apical and anterior akinesis. Severe sepsis-resolved Left lower leg cellulitis with some wounds Enterobacter aeruginosa pneumonia H. pylori Treated with fluconazole, piperacillin/tazobactam and metronidazole started 06/06 s/p Treatment for H pylori with clarithromycin/amoxicillin/PPI 14 days -> covert to metronidazole/clarithromycin for 10 additional days which patient completed prior to Black eschar to LLE and intact bullae on BLE Apply Maxorb extra AG over wound bed and cover with dry 4x4 gauze. Podiatry input appreciated and patient is status post Sharp excisional debridement of superficial abscess bulla foot, ankle and leg , multiple June 18, 2017 Vascular surgery was consulted CTA with runoff mild peripheral vascular disease Leukocytosis Normocytic anemia Monitor CBC and follow trends Hyponatremia Hypopotassemia Replace electrolytes as clinically indicated PROPH: No SCDs for now due to concern for PAD. On enoxaparin 40 mg subcu daily. Pantoprazole 40 mg po bid Pt Condition on Discharge: Good Discharge Disposition: Disch w/ Home Health Serv Discharge Time: > 30 minutes Discharge Instructions Follow up Referrals: Cardiology PCP Follow-up - 2-3 Days Surgical New Medications: Hydrocodone-Acetaminophen ([place]) 5 Mg-325 Mg Tab 1 TAB PO Q6H PRN for PAIN, #10 TAB 0 Refills Potassium Chloride ER (Potassium Chloride ER) 10 Meq Tab 10 MEQ PO DAILY for Electrolyte Replacement, #30 TAB 0 Refills Amiodarone (Amiodarone) 200 Mg Tab 200 MG PO DAILY for Regulate Heart Beat, #30 TAB Carvedilol (Coreg) 6.25 Mg Tab 6.25 MG PO Q12HR for Blood Pressure Management, #60 TAB Diltiazem (Cardizem) 60 Mg Tab 60 MG PO QID for Regulate Heart Beat, #120 TAB Furosemide (Furosemide) 40 Mg Tab 40 MG PO DAILY for Prevent Heart Failure, #30 TAB Pantoprazole (Pantoprazole) 40 Mg Tab 40 MG PO DAILY for Prevent Stress Ulcers, #30 TAB Sennosides-Docusate Sodium (Gnp Senna Plus 8.6-50 mg) 8.6 Mg-50 Mg Tab 1 TAB PO BID for Bowel Management, #20 TAB [Budeson-Formot 160-4.5 Mcg Inh] () 60 PUFF AERO 2 PUFF INH Q12HR for Breathing Treatment, #30 Terry Bowling MD June 21, 2017 15:51
[2017-06-21] MEDS: ENOXAPARIN SODIUM 40 MG/0.4 ML SYRINGE SQ SCH (20:58)
[2017-06-22] VITALS: BP 147/77; PULSE 95; RESP 18; TEMP 98.7; O2SAT 98
[2017-06-22] MEDS: ZOLPIDEM TARTRATE 5 MG TAB PO PRN (00:12)
[2017-06-22] MEDS: metroNIDAZOLE 500 MG TAB PO SCH ×2 (05:28→13:17)
[2017-06-22 08:00] VITALS: BP 134/64; PULSE 73; RESP 16; TEMP 98.2; O2SAT 97
[2017-06-22] MEDS: CHLORHEXIDINE 0.12% (ORAL KIT) 15 ML CUP MT SCH (08:00)
[2017-06-22] MEDS: BUDESONIDE-FORMOTEROL 160/4.5 MCG INHALER INH SCH (08:58)
[2017-06-22] MEDS: CARVEDILOL 6.25 MG TAB PO SCH (08:59)
[2017-06-22] MEDS: CLARITHROMYCIN 500 MG TAB PO SCH (08:59)
[2017-06-22] MEDS: AMIODARONE 200 MG TAB PO SCH (08:59)
[2017-06-22] MEDS: FUROSEMIDE 40 MG TAB PO SCH (08:59)
[2017-06-22] MEDS: DILTIAZEM HCL 60 MG TAB PO SCH ×2 (08:59→13:17)
[2017-06-22] MEDS: DOCUSATE SODIUM 50 MG/SENNA 8.6 MG TAB PO SCH (08:59)
[2017-06-22] MEDS: PANTOPRAZOLE SOD 40 MG DELAYED RELEASE TAB PO SCH (08:59)
[2017-06-22] MEDS: SODIUM CHLORIDE 0.9% FLUSH 10 ML FLUSH IV FLUSH SCH (09:00)
[2017-06-22] MEDS: ARTIFICIAL TEARS OPTH SOLN 15 ML BTL EACH EYE SCH ×2 (09:00→13:00)
[2017-06-22] MEDS: SILVER SULFADIAZINE 1% CR 50 GM JAR TOPICAL SCH (09:00)
--- NOTE | 2017-06-22 11:29 | HHI.PR ---
Subjective Remarks Follow-up perforated peptic ulcer status post repair June 16, 2017-patient seen and examined, denies any significant abdominal pain. Reports shortness of breath and states he need to use his CPAP at night which he has not done. Also complains of insomnia. June 17, 2017-patient seen and examined, no acute event overnight. Episodes of low BP. Afebrile June 18, 2017-patient seen and examined, complaining of generalized pain. Is discussed with podiatry June 19, 2017-patient seen and examined, complains of lower extremities pain, currently afebrile June 20, 2017-patient seen and examined, denies any chest pain, shortness of breath or dizziness. CTA with runoff mild peripheral vascular disease June 21, 2017-patient seen and examined, significant shortness of breath. Only complaint of bilateral lower extremity pain otherwise stable. AFEBRILE June 22, 2017-patient seen and examined, complains of left lower extremity pain. Denies any shortness of breath, chest pain. Afebrile Objective Vitals Vital Signs Date Time Temp Pulse Resp B/P (MAP) Pulse Ox O2 Delivery O2 Flow Rate FiO2 06/22/17 08:00 98.2 73 16 134/64 (87) 97 06/22/17 00:00 98.7 95 18 147/77 (100) 98 06/21/17 23:57 73 06/21/17 21:00 Nasal Cannula 3.00 06/21/17 20:00 98.1 84 18 134/66 (88) 93 06/21/17 19:53 81 06/21/17 16:00 97.8 76 16 110/55 (73) 93 06/21/17 12:00 97.4 77 19 131/92 (105) 97 I/O 06/21/17 06/21/17 06/21/17 06/22/17 06/22/17 06/22/17 07:00 15:00 23:00 07:00 15:00 23:00 Intake Total 100 ml 1400 ml Balance 100 ml 1400 ml Intake Oral 1400 ml IV Total 100 ml # Voids 5 # Bowel Movements 0 Result Diagram: 06/18/17 0406 06/18/17 0406 Imaging Last Impressions Upper Extremity Ultrasound 06/20/17 0000 Signed Impressions: Service Date/Time: Tuesday, June 20, 2017 22:46 - CONCLUSION: 1. No deep venous thrombosis. 2. However, occlusive thrombus is seen in the mid and distal portions of the left cephalic vein. Rosales Combs MD Aorta w/Runoff CTA 06/19/17 0000 Signed Impressions: Service Date/Time: Monday, June 19, 2017 11:43 - CONCLUSION: 1. Overall mild peripheral vascular disease. No significant aortic or inflow stenosis. 2. Mild bilateral SFA plaque with tandem stenoses in the distal thigh. 3. Focal moderate stenosis of the popliteal artery at the level of the knee on the left. 4. 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 5. Limited 3 vessel runoff bilaterally. 6. 1.3 cm indeterminate density cystic lesion in the anterior mid left kidney. 7. Moderately distended bladder. Edvin Bocanegra MD Carotid Artery Ultrasound 06/18/17 0000 Signed Impressions: Service Date/Time: Sunday, June 18, 2017 16:00 - CONCLUSION: No hemodynamically significant stenosis in either carotid artery. Terry Trevizo MD Foot X-Ray 06/17/17 0000 Signed Impressions: Service Date/Time: Saturday, June 17, 2017 16:44 - CONCLUSION: Unremarkable examination of the right foot. On the lateral film there is a 2 mm radiodensity in the plantar aspect of the foot at the level of the MTP joints. Ish Woodruff MD Chest X-Ray 06/11/17 0000 Signed Impressions: Service Date/Time: Sunday, June 11, 2017 08:01 - CONCLUSION: 1. Interval extubation and removal of nasogastric tube since the prior study. 2. Hazy opacity remaining at the lung bases with probable left effusion. Pedro Pablo Sorensen MD Upper GI Series 06/09/17 0000 Signed Impressions: Service Date/Time: May 10:52 - CONCLUSION: No evidence of gastric leakage. Jv Barfield MD Chest CT 06/05/172102 Signed Impressions: Service Date/Time: Monday, June 05, 2017 21:58 - CONCLUSION: 1. Bilateral atelectasis. 2. 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 3. No aneurysm or dissection of the thoracic aorta. Paul Palencia MD Abdomen/Pelvis CT 06/05/172010 Signed Impressions: Service Date/Time: Monday, June 05, 2017 21:58 - CONCLUSION: 1. Free intraperitoneal air and fluid. The source is not fluid identified. 2. Bibasilar is a consolidation or atelectasis at the lung bases. 3. Small right renal calcifications which may represent nonobstructing renal stones. Paul Bernal MD Objective Remarks GENERAL: NAD SKIN: Warm and dry. HEAD: Normocephalic. EYES: No scleral icterus. No injection or drainage. NECK: Supple, trachea midline. No JVD or lymphadenopathy. CARDIOVASCULAR: Regular rate and rhythm without murmurs, gallops, or rubs. RESPIRATORY: Breath sounds equal bilaterally. No accessory muscle use. GASTROINTESTINAL: Abdomen soft, non-tender, nondistended. MUSCULOSKELETAL: No cyanosis, or edema. Dressing to wounds bilateral extremities BACK: Nontender without obvious deformity. No CVA tenderness. Procedures 06/06 1. Diagnostic laparoscopy. 2. Laparoscopic repair of perforated gastric ulcer using modified Silverio patch. 3. Laparoscopic washout. June 18, 2017 s/p Sharp excisional debridement of superficial abscess bulla foot, ankle and leg, multiple Date of Removal: Jun 15, 2017 A/P Problem List: (1) Perforated bowel ICD Code: K63.1 - Perforation of intestine (nontraumatic) Status: Acute (2) Acute renal failure ICD Code: N17.9 - Acute kidney failure, unspecified Status: Acute (3) Hyperkalemia ICD Code: E87.5 - Hyperkalemia Status: Acute (4) Atrial fibrillation with RVR ICD Code: I48.91 - Unspecified atrial fibrillation Status: Acute (5) Hyponatremia ICD Code: E87.1 - Hypo-osmolality and hyponatremia Status: Acute Assessment and Plan 62-year-old man with Perforated peptic ulcer now status post laparoscopic primary repair by Dr. Valle 06/06/17 Hypoalbuminemia Elevated total bilirubin Status post left hip repair with perforated gastric ulcer with Silverio patch secondary to severe sepsis/acute abdomen with perforated anterior gastric ulcer with a #19 Garrett two-point s/p Treatment for H pylori with clarithromycin/amoxicillin/PPI 14 days -> covert to metronidazole/clarithromycin for 10 additional days, which patient will complete today. Pantoprazole 40 mg po bid COPD/emphysema Postoperative respiratory failure secondary to volume overload and underlying parenchymal disease Obstructive sleep apnea Nasal cannula to maintain saturations greater than or equal to 92%. Currently on 3 L Albuterol/ipratropium aerosols scheduled every 6 hours with as needed albuterol every 2 hours as needed dyspnea CPAP @Night Coronary artery disease Dilated ischemic cardiomyopathy, EF 30% Prior myocardial infarction Essential hypertension Hyperlipidemia Paroxysmal Atrial fibrillation with RVR- now rate controlled in SR On amiodarone 200 mg daily, carvedilol 6.2 mg twice daily and diltiazem 60 mg every 6 hours Appreciate input from cardiology. Will need right heart cath/left heart cath at some point in the future.. ABIs close to normal for his age. Source of possible embolic debris in the lower extremities remains unclear, possibly paroxysmal atrial fibrillation. Currently furosemide 40 mg PO daily 2D echocardiogram revealed EF of 30%. Apical and anterior akinesis. Severe sepsis-resolved Left lower leg cellulitis with some wounds Enterobacter aeruginosa pneumonia H. pylori Currently on fluconazole, piperacillin/tazobactam and metronidazole started 06/06 s/p Treatment for H pylori with clarithromycin/amoxicillin/PPI 14 days -> covert to metronidazole/clarithromycin for 10 additional days, which patient will complete today Black eschar to LLE and intact bullae on BLE Apply Maxorb extra AG over wound bed and cover with dry 4x4 gauze. Podiatry input appreciated and patient is status post Sharp excisional debridement of superficial abscess bulla foot, ankle and leg , multiple June 18, 2017 Vascular surgery was consulted CTA with runoff mild peripheral vascular disease Leukocytosis Normocytic anemia Monitor CBC and follow trends Hyponatremia Hypopotassemia Replace electrolytes as clinically indicated VTE in LUE cephalic vein Currently on Lovenox PROPH: No SCDs for now due to concern for PAD. On enoxaparin 40 mg subcu daily. Pantoprazole 40 mg po bid Problem Qualifiers (1) Acute renal failure: Qualified Codes: N17.9 - Acute kidney failure, unspecified Terry Bowling MD June 22, 2017 11:29
[2017-06-22] MEDS ORDERED: AMIO200T PO (11:34)
[2017-06-22] MEDS ORDERED: PANT40TA3 PO (11:34)
[2017-06-22] MEDS ORDERED: POTA10TA2 PO (11:34)
[2017-06-22] MEDS ORDERED: Budeson-Formot 160-4.5 Mcg Inh INH (11:34)
[2017-06-22] MEDS ORDERED: FURO40TA PO (11:34)
[2017-06-22] MEDS ORDERED: DILT60TA33 PO (11:34)
[2017-06-22] MEDS ORDERED: CARV6.25 PO (11:34)
[2017-06-22] MEDS ORDERED: PERI PO (11:34)
[2017-06-22] MEDS ORDERED: NORC5TAB PO (11:34)
[2017-06-22 12:00] VITALS: BP 136/70; PULSE 75; RESP 16; TEMP 98; O2SAT 98
[2017-06-22 13:25] VITALS: O2SAT 93
== END 2017-06-22 16:27 | DRG 853 ==
LOC: NEPC 17:23 → NEDA 23:25 → HPAC 06-06 05:38 → N03A 06-06 06:58 → N07A 06-15 22:44
PROVIDERS: ADMIT Hospitalist; ATTEND Hospitalist
PROC: 5A1945Z Respiratory Ventilation, 24-96 Consecutive Hours (ICD-10-PCS; 2017-06-06)
PROC: 0DU647Z Supplement Stomach with Autologous Tissue Substitute, Percutaneous Endoscopic Approach (ICD-10-PCS; 2017-06-06)
PROC: 0BH17EZ Insertion of Endotracheal Airway into Trachea, Via Natural or Artificial Opening (ICD-10-PCS; 2017-06-06)
PROC: 0DQ64ZZ Repair Stomach, Percutaneous Endoscopic Approach (ICD-10-PCS; principal; 2017-06-06 00:45)
PROC: 5A09357 Assistance with Respiratory Ventilation, Less than 24 Consecutive Hours, Continuous Positive Airway Pressure (ICD-10-PCS; 2017-06-10)
PROC: 0HBNXZZ Excision of Left Foot Skin, External Approach (ICD-10-PCS; 2017-06-18)
PROC: 0HBKXZZ Excision of Right Lower Leg Skin, External Approach (ICD-10-PCS; 2017-06-18)
PROC: 0HBLXZZ Excision of Left Lower Leg Skin, External Approach (ICD-10-PCS; 2017-06-18)
PROC: 0HBMXZZ Excision of Right Foot Skin, External Approach (ICD-10-PCS; 2017-06-18)
DX: A41.9 Sepsis, unspecified organism (principal); R65.21 Severe sepsis with septic shock; I21.4 Non-ST elevation (NSTEMI) myocardial infarction; J95.821 Acute postprocedural respiratory failure; J15.6 Pneumonia due to other Gram-negative bacteria; E87.2 Acidosis; K65.9 Peritonitis, unspecified; I74.3 Embolism and thrombosis of arteries of the lower extremities; K25.5 Chronic or unspecified gastric ulcer with perforation; L02.415 Cutaneous abscess of right lower limb; N17.9 Acute kidney failure, unspecified; E87.1 Hypo-osmolality and hyponatremia; L02.612 Cutaneous abscess of left foot; L02.611 Cutaneous abscess of right foot; L02.416 Cutaneous abscess of left lower limb; J44.0 Chronic obstructive pulmonary disease with (acute) lower respiratory infection; L03.115 Cellulitis of right lower limb; L03.116 Cellulitis of left lower limb; J98.11 Atelectasis; I42.0 Dilated cardiomyopathy; E11.52 Type 2 diabetes mellitus with diabetic peripheral angiopathy with gangrene; I11.0 Hypertensive heart disease with heart failure; I50.9 Heart failure, unspecified; E11.621 Type 2 diabetes mellitus with foot ulcer; E88.09 Other disorders of plasma-protein metabolism, not elsewhere classified; L97.519 Non-pressure chronic ulcer of other part of right foot with unspecified severity; E87.5 Hyperkalemia; E87.70 Fluid overload, unspecified; L97.529 Non-pressure chronic ulcer of other part of left foot with unspecified severity; I48.0 Paroxysmal atrial fibrillation; F17.210 Nicotine dependence, cigarettes, uncomplicated; E78.00 Pure hypercholesterolemia, unspecified; H91.90 Unspecified hearing loss, unspecified ear; R06.82 Tachypnea, not elsewhere classified; R00.0 Tachycardia, unspecified; G89.29 Other chronic pain; M54.5 Low back pain; I25.10 Atherosclerotic heart disease of native coronary artery without angina pectoris; G47.33 Obstructive sleep apnea (adult) (pediatric); E86.9 Volume depletion, unspecified; I25.5 Ischemic cardiomyopathy; D64.9 Anemia, unspecified; E87.6 Hypokalemia; G47.00 Insomnia, unspecified; I25.2 Old myocardial infarction
CPT/HCPCS: 36600; 71045; 71260; 73630; 74177; 74240; 75635; 76937; 80048; 80053; 80076; 80202; 81001; 82140; 82150; 82533; 82550; 82805; 83605; 83690; 83735; 83880; 84100; 84132; 84439; 84443; 84481; 84484; 85007; 85025; 85027; 85610; 85730; 86850; 86900; 86901; 87040; 87070; 87077; 87186; 87205; 87641; 93005; 93306; 93880; 93922; 93971; 94002; 94003; 94150; 94640; 94664; 96361; 96374; 96375; C9113; J0282; J0610; J1170; J1450; J1650; J1815; J1940; J2270; J2370; J2405; J2543; J3010; J3370; J3475; J7030; J7040; J7050; J7120; J7613; Q9963; Q9967